=== PATIENT | female | born 1945 | race Caucasian/White ===

== ENCOUNTER 2019-03-09 07:13 | Inpatient (IN) | payer MEDICARE, MEDICAID, SELFPAY ==
[2019-03-10] VITALS (28 sets, daily range): BP systolic 101–181; BP diastolic 42–98; PULSE 75–106; RESP 11–22; TEMP 36.2–36.8; O2SAT 92–98
[2019-03-10] MEDS: propofol 1,000 MG/100 ML INJ 18.1 MG IV (03:00)
[2019-03-10] MEDS: ipratropium-albuterol 3 mL Neb INHALATION ×6 (03:21→23:44)
--- NOTE | 2019-03-10 04:00 | XR_ITS ---
WS: [id number] CHEST XRAY TECHNIQUE: Portable chest. CLINICAL INFORMATION: resp failure COMPARISON: March 09, 2019 FINDINGS: Tubes/Lines: Endotracheal tube with tip above the elza. Enteric tube with tip below the diaphragm. Stable right central venous catheter. Heart: Normal cardiac silhouette. Sternotomy. Lungs: Chronic emphysematous changes. No acute pulmonary infiltrates. Bones: Normal visualized bony structures. XR/XR chest 1V portable [id number] IMPRESSION: 1. Endotracheal tube with tip above the elza. Enteric tube with tip below th e diaphragm. 2. No acute pulmonary infiltrates.
--- NOTE | 2019-03-10 04:40 | PC.NURSE ---
Large amount of bloody drainage noted from Right SC central line. Dressing changed using sterile technique, surgiseal placed over insertion site. Will continue to monitor and notify MD if continued bleeding noted.
[2019-03-10 05:15] LABS: Add RBC Morph No
[2019-03-10 05:20] LABS: Basophils % 0.1 %; Hematocrit 36.1 % (37.0-47.0); Hemoglobin 11.3 g/dL (11.5-15.3); Lymphocytes # 1.1 10^3/uL (0.8-4.8); Lymphocytes % 8.2 %; Mean Corpuscular HGB Conc 31.3 g/dL (30.0-36.0); Mean Corpuscular Hemoglobin 26.3 pg (28.0-34.0); Mean Corpuscular Volume 84.1 fL (81-99); Mean Platelet Volume 10.9 fL (7.4-10.4); Monocytes # 0.6 10^3/uL (0.2-0.9); Monocytes % 4.4 %; Neutrophils # 11.2 10^3/uL (1.8-7.7); Neutrophils % 86.8 %; Nucleated Red Blood Cells % 0 %; Platelet Count 177 10^3/cmm (130-400); Red Blood Count 4.29 10^6/uL (4.1-5.3); Red Cell Distribution Width 13.7 % (12.1-15.1); White Blood Count 12.9 10^3/uL (4.0-10.0)
[2019-03-10 05:39] LABS: Anion Gap 16.1 (5-19); Blood Urea Nitrogen 24 mg/dL (8-23); Calcium 8.1 mg/Dl (8.8-10.2); Carbon Dioxide 25 mmol/L (22-29); Chloride 102 mmol/L (98-107); Glucose 148 mg/dL (74-106); Potassium 3.1 mmol/L (3.5-5.1); Sodium 140 mmol/L (136-145)
[2019-03-10 05:46] LABS: ABG PCO2 33.5 mmHg (35-45); ABG PH Result 7.51 (7.35-7.45); Arterial Blood Gas Hematocrit 36.7 % (37-47); Base Excess ABG 3.6 mmol/L (-2.0-2.0); Blood Gas Allen Test Pos; Blood Gas Sample Site Brachial, right; Blood Gas Sample Type Arterial; HCO3 ABG 26.5 mmol/L (22-26); PO2 ABG 89.5 mmHg (80.0-100.0)
[2019-03-10 05:48] LABS: Blood Gas Operator Identificat VOSSA
[2019-03-10 05:49] LABS: Blood Gas Drawn By VOSSA; Blood Gas Tidal Volume 450; Blood Gas Vent Mode CMV; Oxygen Device VENT
[2019-03-10] MEDS: budesonide 0.5 mg/2 mL Neb INHALATION ×2 (07:05→20:10)
[2019-03-10] MEDS: levofloxacin-dextrose 5% 750 mg-150 mL Premix 150 MG IV (07:38)
[2019-03-10] MEDS: propofol 1,000 MG/100 ML INJ 14.5 MG IV (07:41)
[2019-03-10] MEDS: sodium chloride 0.9 % (flush) syringe 10 mL 2 ML IV ×2 (07:45→21:06)
--- NOTE | 2019-03-10 08:17 | P.PN_ITS ---
Subjective Subjective: Interval history: Sarika is sedated on the ventilator. She will come alert and follow commands. Vitals/I&O/Wt Last Vital Signs Temp 97.8 F 03/10/19 04:00 Pulse 76 03/10/19 07:18 Resp 15 03/10/19 07:21 BP 124/56 03/10/19 06:00 Pulse Ox 94 03/10/19 07:06 03/09/19 03/10/19 03/10/19 22:59 06:59 14:59 Intake Total 183.262 / 183.262 62.108 / 62.108 Balance 183.262 / 183.262 62.108 / 62.108 Weight last 48 hrs Weight 120.837 kg Physical Exam Narrative: EXAM NARRATIVE: General exam is no apparent distress Cardiovascular regular rate and rhythm without murmur Lungs clear. No wheezing is heard today. Abdomen is soft with positive bowel sounds Extremities no cyanosis clubbing. Trace edema is present. Data Labs: Other Labs: All Labs last 24 hrs except CBC/BMP 03/09/19 03/09/19 03/09/19 08:03 09:22 13:48 RBC MCV MCH MCHC RDW MPV Neut % (Auto) Lymph % (Auto) [place] % (Auto) Eos % (Auto) Baso % (Auto) Neut # (Auto) Lymph # (Auto) [place] # (Auto) Eos # (Auto) Baso # (Auto) Nucleated RBC % (a uto) Nucleated RBCs # Specimen Type Arterial Sample Site Radial, right ABG pH 7.38 ABG pCO2 40.8 ABG pO2 79.4 L ABG HCO3 24.1 ABG Base Excess -1.0 Cricket Test Pos Hematocrit 40.7 Respiration Rate 16.0 O2 Delivery Device VENT Vent Mode FiO2 55.0 Tidal Volume 0.45 PEEP 8.0 Specimen Drawn By Hand Printed Circuit Board Assembler ID cak Calcium Troponin T Baselin e 270.40 H* TSH 0.80 03/10/19 03/10/19 03/10/19 04:25 04:25 05:35 RBC 4.29 MCV 84.1 MCH 26.3 L MCHC 31.3 RDW 13.7 MPV 10.9 H Neut % (Auto) 86.8 Lymph % (Auto) 8.2 [place] % (Auto) 4.4 Eos % (Auto) 0.0 Baso % (Auto) 0.1 Neut # (Auto) 11.2 H Lymph # (Auto) 1.1 [place] # (Auto) 0.6 Eos # (Auto) 0.0 Baso # (Auto) 0.0 Nucleated RBC % (a uto) 0 Nucleated RBCs # 0.0 Specimen Type Arterial Sample Site Brachial, right ABG pH 7.51 H ABG pCO2 33.5 L ABG pO2 89.5 ABG HCO3 26.5 H ABG Base Excess 3.6 H Cricket Test Pos Hematocrit 36.7 L Respiration Rate 14.0 O2 Delivery Device Vent Vent Mode Cmv FiO2 0.0 Tidal Volume 450 PEEP 8.0 Specimen Drawn By Vossa Hand Printed Circuit Board Assembler ID Vossa Calcium 8.1 L Troponin T Baselin e TSH A&P Assessment and plan (1) Respiratory failure: She appears to have improved significantly. Planning extubation today. Status: Acute Code(s): J96.90 - Respiratory failure, unspecified, unspecified whether with hypoxia or hypercapnia (2) Acute systolic heart failure: Compensation improved Status: Acute Code(s): I50.21 - Acute systolic (congestive) heart failure (3) COPD with acute exacerbation: Improving Status: Acute Code(s): J44.1 - Chronic obstructive pulmonary disease with (acute) exacerbation (4) Obesity: Status: Acute Code(s): E66.9 - Obesity, unspecified (5) Coronary artery disease: With elevated troponin, reduced ejection fraction cardiology is following and considering angiogram Status: Acute Code(s): I25.10 - Atherosclerotic heart disease of [place] coronary artery without angina pectoris (6) Hypertension: Stable Status: Acute Code(s): I10 - Essential (primary) hypertension (7) GERD (gastroesophageal reflux disease): Status: Acute Code(s): K21.9 - Gastro-esophageal reflux disease without esophagitis (8) Hypokalemia: Supplemented today Status: Acute Code(s): E87.6 - Hypokalemia Attestations Medical Necessity Statement*: Needs continued hospitalization for diuresis secondary to acute congestive heart failure Coding Level of Care Code Acute Shift Superintendent [employer] for [facility] Fwd Diagnoses Respiratory failure J96.90 Acute systolic heart failure I50.21 COPD with acute exacerbation J44.1 Obesity E66.9 Coronary artery disease I25.10 Hypertension I10 GERD (gastroesophageal reflux disease) K21.9 Hypokalemia E87.6
--- NOTE | 2019-03-10 08:21 | PM.PN ---
Subjective Subjective: Interval history: Overall patient feels better No acute events overnight Vitals/I&O/Wt Last Vital Signs Temp 97.8 F 03/10/19 04:00 Pulse 76 03/10/19 07:18 Resp 15 03/10/19 07:21 BP 124/56 03/10/19 06:00 Pulse Ox 94 03/10/19 07:06 03/09/19 03/10/19 03/10/19 22:59 06:59 14:59 Intake Total 183.262 / 183.262 62.108 / 62.108 Balance 183.262 / 183.262 62.108 / 62.108 Weight last 48 hrs Weight 266 lb 6.4 oz Physical Exam Const: COMMON NORMALS: oriented x3 and alert EXAM LIMITATIONS: no altered mental status HENMT: COMMON NORMALS: normocephalic HEAD & SCALP: normocephalic Resp: COMMON NORMALS: normal respiratory effort and clear to auscultation bilaterally AUSCULTATION: clear to auscultation bilaterally GI: COMMON NORMALS: soft to palpation; negative for no masses PALPATION: Yes soft and Yes other (Patient does have some drainage from the upper part of the incision, skin stef were removed and there was a slimy discharge get the fascia is intact packing was done by me bedside after removal additional skin staple) Neuro: COMMON NORMALS: oriented x3 SENSORIUM/ORIENTATION: Yes alert Psych: COMMON NORMALS: cooperative Data Labs: Other Labs: All Labs last 24 hrs except CBC/BMP 03/09/19 03/09/19 03/09/19 08:03 09:22 13:48 RBC MCV MCH MCHC RDW MPV Neut % (Auto) Lymph % (Auto) [place] % (Auto) Eos % (Auto) Baso % (Auto) Neut # (Auto) Lymph # (Auto) [place] # (Auto) Eos # (Auto) Baso # (Auto) Nucleated RBC % (a uto) Nucleated RBCs # Specimen Type Arterial Sample Site Radial, right ABG pH 7.38 ABG pCO2 40.8 ABG pO2 79.4 L ABG HCO3 24.1 ABG Base Excess -1.0 Cricket Test Pos Hematocrit 40.7 Respiration Rate 16.0 O2 Delivery Device VENT Vent Mode FiO2 55.0 Tidal Volume 0.45 PEEP 8.0 Specimen Drawn By Undercutter ID cak Calcium Troponin T Baselin e 270.40 H* TSH 0.80 03/10/19 03/10/19 03/10/19 04:25 04:25 05:35 RBC 4.29 MCV 84.1 MCH 26.3 L MCHC 31.3 RDW 13.7 MPV 10.9 H Neut % (Auto) 86.8 Lymph % (Auto) 8.2 [place] % (Auto) 4.4 Eos % (Auto) 0.0 Baso % (Auto) 0.1 Neut # (Auto) 11.2 H Lymph # (Auto) 1.1 [place] # (Auto) 0.6 Eos # (Auto) 0.0 Baso # (Auto) 0.0 Nucleated RBC % (a uto) 0 Nucleated RBCs # 0.0 Specimen Type Arterial Sample Site Brachial, right ABG pH 7.51 H ABG pCO2 33.5 L ABG pO2 89.5 ABG HCO3 26.5 H ABG Base Excess 3.6 H Cricket Test Pos Hematocrit 36.7 L Respiration Rate 14.0 O2 Delivery Device Vent Vent Mode Cmv FiO2 0.0 Tidal Volume 450 PEEP 8.0 Specimen Drawn By Vossa Undercutter ID Vossa Calcium 8.1 L Troponin T Juanjose e TSH Coding Level of Care Code Acute In Home Nanny for [facility]
--- NOTE | 2019-03-10 09:29 | PC.NURSE ---
iv intact measured on other intake on intake and output
[2019-03-10] MEDS: aspirin 81 mg EC Tablet PO (09:45)
[2019-03-10] MEDS: losartan 50 mg Tablet 25 MG PO (09:46)
[2019-03-10] MEDS: famotidine 20 mg Tablet PO ×2 (09:46→18:07)
[2019-03-10] MEDS: metoprolol tartrate 25 mg Tablet 12.5 MG PO ×2 (09:46→18:07)
[2019-03-10] MEDS: FUROsemide 10 mg/mL SDV 4mL 40 MG IVP ×2 (09:47→21:05)
[2019-03-10] MEDS: potassium chloride premix 40 MEQ/100 ML PREMIX 25 MEQ IV (09:50)
--- NOTE | 2019-03-10 10:26 | PC.RESP ---
PT EXTUBATED . 0 RESPIRATROY DISTRESS NOTED. HR112 RR 20 SAT 95% ON 3LPM NC
--- NOTE | 2019-03-10 11:32 | PM.CONSULT ---
Providers/Reason For Consult Consulting Physican/Specialty*: Dr. Ruiz, cardiology Reason for Consult*: Elevated troponin and decreased LV function. Attending Physician: Charles Saba MD Primary Care Provider: Karla Mendez History of Present Illness History of Present Illness Sarika Banegas is a 73 year old female who was transferred from [facility] ER yesterday secondary to respiratory failure. It seems like she presented to the ER with significant hypoxia and hypercarbia and ended up being intubated. Chest x-ray showed pulmonary edema and Lasix was started. CT angiogram at outside hospital showed no pulmonary embolism and probable congestive heart failure. Initial troponin T fifth generation on arrival here was 270 which increased to 320 and then the third set on at 6-hour marco was 326. She underwent echocardiogram and was found to have left ventricular ejection fraction in the 30% range with severe hypokinesis of mid to apical segments with relative sparing of basal segments more so in lateral wall. I have been asked to assist in further management. On reviewing her records seems like she follows up with Dr. Marquez and last saw him on 09 December 2018. She has known history of coronary artery disease with history of CABG x2 by Dr. Stovall at [facility] in [place] in March 2009 for unstable angina when she underwent ROPER to LAD and saphenous vein graft from ROPER to obtuse marginal artery. She also has carotid artery disease, 60% left subclavian stenosis, COPD, dyslipidemia, gastroesophageal reflux disease and degenerative joint disease. At the time of examination, she has been extubated. States that for the past 2 weeks, she has been having worsening lower extremity swelling, worsening orthopnea, cough productive of whitish sputum and worsening dyspnea on exertion. She denies having any episodes of chest discomfort. Symptoms progressively got got worse over the past 2 weeks and last night she was unable to breathe at all so she called 911 and ended up being intubated at outside ER. Review of Systems Const: Denies: fever, chills, change in appetite, fatigue or malaise ENMT: Denies: throat pain, swelling of lips/tongue, oral sores/lesions or post nasal drip Card: Reports: edema, swelling of feet/ankles and shortness of breath on exertion; Denies: chest pain, palpitations, irregular heart rhythm, lightheadedness or syncope Resp: Reports: shortness of breath, productive cough and chest congestion; Denies: wheezing or coughing up blood GI: Denies: abdominal pain, nausea, vomiting, diarrhea, constipation or blood in stool : Denies: difficulty urinating, painful urination or decreased urine ouput Skin/Breast: Denies: rash or new lesion Neuro: Denies: weakness in extremities Meds/Allergies Home Medications and Allergies Home Medications Medication Instructions Recorded Confirmed Type albuterol sulfate 90 mcg/actuation 2 puff INHALATION Q6H PRN 03/09/19 03/09/19 History aerosol inhaler aspirin 325 mg tablet 325 mg PO ONCE tab 03/09/19 03/09/19 History citalopram 10 mg tablet 10 mg PO ONCE 03/09/19 03/09/19 History fluticasone propionate 50 1 spray INTRANASAL BID 03/09/19 03/09/19 History mcg/actuation nasal spray,suspension fluticasone propionate 50 1 spray INTRANASAL BID PRN 03/09/19 03/09/19 History mcg/actuation nasal spray,suspension furosemide 40 mg tablet 40 mg PO BID 03/09/19 03/09/19 History levothyroxine 50 mcg tablet 50 mcg PO ONCE 03/09/19 03/09/19 History losartan 25 mg tablet 25 mg PO BID 03/09/19 03/09/19 History metoprolol tartrate 25 mg tablet 12.5 mg PO BID 03/09/19 03/09/19 History mirabegron 50 mg tablet,extended 50 mg PO Q24H 03/09/19 03/09/19 History release 24 hr naproxen 375 mg tablet,delayed 375 mg PO BID 03/09/19 03/09/19 History release nitroglycerin 0.4 mg sublingual 0.4 mg SUBLINGUAL Q5M PRN 03/09/19 03/09/19 History tablet pantoprazole 40 mg tablet,delayed 40 mg PO ONCE 03/09/19 03/09/19 History release potassium chloride 10 mEq 10 meq PO BID cap 03/09/19 03/09/19 History capsule,extended release rosuvastatin 5 mg tablet 5 mg PO ONCE 03/09/19 03/09/19 History tizanidine 2 mg capsule 2 mg PO TID PRN 03/09/19 03/09/19 History tramadol 50 mg tablet 50 mg PO BID PRN 03/09/19 03/09/19 History trazodone 100 mg tablet 100 mg PO ONCE 03/09/19 03/09/19 History umeclidinium 62.5 mcg-vilanterol 1 inh INHALATION Q24H 03/09/19 03/09/19 History 25 mcg/actuation powdr for inhalation Allergies Allergy/AdvReac Type Severity Reaction Status Date / Time alprazolam [From Xanax] Allergy makes pt Verified 03/09/19 12:21 mean lisinopril Allergy cough Verified 03/09/19 12:18 morphine Allergy hyperactive Verified 03/09/19 12:19 penicillin G Allergy anaphylaxis Verified 03/09/19 12:19 pravastatin Allergy unknown Verified 03/09/19 12:22 simvastatin Allergy unknown Verified 03/09/19 12:22 sulfacetamide Allergy hives Verified 03/09/19 12:20 tiotropium Allergy cough Verified 03/09/19 12:20 [From Spiriva with HandiHaler] Current Medications Current Medications Generic Name Dose Route Start Last Admin Trade Name Freq PRN Reason Stop Dose Admin Albuterol/Ipratropium 3 ml 03/10/19 03:00 03/10/19 11:07 Duoneb INHALATION 3 ml Q4H.RESPIRATORY LIDIA Administration Aspirin 81 mg 03/10/19 09:00 03/10/19 09:45 Aspirin Ec PO 81 mg DAILY LIDIA Administration Budesonide 0.5 mg 03/10/19 08:00 03/10/19 07:05 Pulmicort INHALATION 0.5 mg BID.RESPIRATORY LIDIA Administration Famotidine 20 mg 03/10/19 09:00 03/10/19 09:46 Pepcid Tab PO 20 mg BID LIDIA Administration Furosemide 40 mg 03/10/19 10:00 03/10/19 09:47 Lasix IVP 40 mg Q12H LIDIA Administration Levofloxacin/Dextrose 750 mg in 150 mls @ 150 mls/hr 03/10/19 08:00 03/10/19 07:38 Levaquin-D5w IV 150 mls/hr Q24H LIDIA Administration Propofol 1,000 mg in 100 mls @ 0 mls/hr 03/10/19 02:45 03/10/19 08:41 Diprivan IV 0 mcg/kg/min .Q0M LIDIA 0 mls/hr Titration Protocol Per Protocol Potassium Chloride 40 meq in 100 mls @ 25 mls/hr 03/10/19 08:04 03/10/19 09:50 K-Matthew IV 03/10/19 12:03 25 mls/hr ONCE ONE Administration Losartan Potassium 25 mg 03/10/19 09:00 03/10/19 09:46 Cozaar PO 25 mg DAILY LIDIA Administration Methylprednisolone Sodium Succinate 60 mg 03/10/19 08:00 03/10/19 07:40 Solu-Medrol IVP 60 mg Q12H LIDIA Administration Metoprolol Tartrate 12.5 mg 03/10/19 09:00 03/10/19 09:46 Lopressor PO 12.5 mg BID LIDIA Administration Sodium Chloride 2 ml 03/10/19 06:00 03/10/19 07:45 Sodium Chloride 0.9 % (Flush) IV 2 ml PIID LIDIA Administration PFSH Acute PFSH: Statuses (acute, chronic, etc) shown below reflect problem list status as previously entered and may not be historically accurate Medical History Coronary artery disease (Acute) GERD (gastroesophageal reflux disease) (Acute) Hyperlipidemia (Acute) Hypertension (Acute) Hypothyroidism (Acute) Obesity (Acute) Family History Mother CAD (coronary artery disease) Daughter CAD (coronary artery disease) Hypertension Social History Smoking and tobacco status: former smoker Alcohol intake: never Vitals/I&O/Wt Last Vital Signs Temp 97.8 F 03/10/19 04:00 Pulse 96 03/10/19 11:15 Resp 20 H 03/10/19 11:11 BP 124/56 03/10/19 06:00 Pulse Ox 92 03/10/19 11:11 03/09/19 03/10/19 03/10/19 22:59 06:59 14:59 Intake Total 183.262 / 183.262 76.608 / 76.608 Balance 183.262 / 183.262 76.608 / 76.608 Weight last 48 hrs Weight 256 lb 3 oz Weight 266 lb 6.4 oz Physical Exam Const: EXAM LIMITATIONS: no altered mental status GENERAL APPEARANCE: cooperative NUTRITIONAL APPEARANCE: obese ORIENTATION/CONSCIOUSNESS: Yes awake, Yes oriented to person, Yes oriented to place and Yes oriented to time HENMT: COMMON NORMALS: normocephalic, head/scalp atraumatic and hearing grossly normal bilaterally HEAD & SCALP: normocephalic and atraumatic Chest: COMMONS NORMALS: inspection of chest normal CHEST: Yes tenderness Chest images (female): 1. Right sided central line, dressing saturated with blood Resp: EFFORT & INSPECTION: No able to speak in complete sentences, Yes symmetric chest movement, Yes respiratory distress (mild), No actively coughing and No uses accessory muscles AUSCULTATION: diminished lung sounds (bilateral bases) Cardio: COMMON NORMALS: regular rhythm, S1 normal heart sound, S2 normal heart sound, no gallops, no clicks, no murmurs and peripheral pulses 2+ throughout JUGULAR VENOUS DISTENTION: no JVD RHYTHM: regular rhythm HEART SOUNDS: S1 normal and S2 normal PERIPHERAL PULSES: pulses 2+ throughout GI: COMMON NORMALS: soft to palpation PALPATION: Yes soft RECTAL EXAM: deferred Extremity: GENERAL: Yes edema (2+ edema bilateral lower extremeties) Neuro: SENSORIUM/ORIENTATION: Yes oriented to person, Yes oriented to place and Yes oriented to time SPEECH: speech normal Skin: COMMON NORMALS: no rashes or lesions noted GENERAL SKIN EXAM: no rashes or lesions noted Data Labs: Other Labs: All Labs last 24 hrs except CBC/BMP 03/09/19 03/09/19 03/09/19 08:03 09:22 13:48 RBC MCV MCH MCHC RDW MPV Neut % (Auto) Lymph % (Auto) [place] % (Auto) Eos % (Auto) Baso % (Auto) Neut # (Auto) Lymph # (Auto) [place] # (Auto) Eos # (Auto) Baso # (Auto) Nucleated RBC % (a uto) Nucleated RBCs # Specimen Type Arterial Sample Site Radial, right ABG pH 7.38 ABG pCO2 40.8 ABG pO2 79.4 L ABG HCO3 24.1 ABG Base Excess -1.0 Cricket Test Pos Hematocrit 40.7 Respiration Rate 16.0 O2 Delivery Device VENT Vent Mode FiO2 55.0 Tidal Volume 0.45 PEEP 8.0 Specimen Drawn By Industrial Real Estate Agent ID cak Calcium Troponin T Baselin e 270.40 H* TSH 0.80 03/10/19 03/10/19 03/10/19 04:25 04:25 05:35 RBC 4.29 MCV 84.1 MCH 26.3 L MCHC 31.3 RDW 13.7 MPV 10.9 H Neut % (Auto) 86.8 Lymph % (Auto) 8.2 [place] % (Auto) 4.4 Eos % (Auto) 0.0 Baso % (Auto) 0.1 Neut # (Auto) 11.2 H Lymph # (Auto) 1.1 [place] # (Auto) 0.6 Eos # (Auto) 0.0 Baso # (Auto) 0.0 Nucleated RBC % (a uto) 0 Nucleated RBCs # 0.0 Specimen Type Arterial Sample Site Brachial, right ABG pH 7.51 H ABG pCO2 33.5 L ABG pO2 89.5 ABG HCO3 26.5 H ABG Base Excess 3.6 H Cricket Test Pos Hematocrit 36.7 L Respiration Rate 14.0 O2 Delivery Device Vent Vent Mode Cmv FiO2 0.0 Tidal Volume 450 PEEP 8.0 Specimen Drawn By Vossa Industrial Real Estate Agent ID Vossa Calcium 8.1 L Troponin T Baselin e TSH Other Data: Attestation for Other Data: I personally reviewed and interpreted the following: Other data: Echocardiogram: CONCLUSIONS 1. This is a technically very difficult and limited study. 2. Moderately to severely decreased left ventricular systolic function. Left ventricular ejection fraction is estimated at 30 %. Severe hypokinesis of mid to apical anteroseptal, inferoseptal, inferolateral, anterolateral and apical leos. 3. Thickened and calcified aortic valve. Mild aortic valve stenosis, mean gradient 9.2 mmHg, ANDRIY 1.9 cm squared. Mild aortic valve regurgitation. 4. Moderately increased left atrial size. 5. Pulmonary artery pressure estimated at 36 mmHg. 6. When compared to previous echocardiogram dated 03/25/2018, left ventricular systolic function has decreased. 7. These findings may represent Tak[place]ubo cardiomyopathy if coronary artery disease is ruled out. EKG showed sinus rhythm with normal axis, possible septal SC of indeterminate age and nonspecific T wave inversion in lead III and aVF. Carotid duplex 01 January 2019: CONCLUSIONS Moderate to heavy heterogenous plaques at the bifurcations and proximal internal carotid arteries bilaterally with velocity elevation, consistent with 50-79% stenosis. Elevated velocity in the right vertebral artery, suggestive of hemodynamically significant stenosis Elevated velocity in the left external carotid artery, suggestive of hemodynamically significant stenosis Retrograde flow in the left vertebral artery, suggestive of high-grade proximal subclavian artery stenosis Compared to the study from 03/26/2018, there is significant progression of disease bilaterally Consider CTA, to better evaluate the aortic arch vessels Neck CT angiogram 09 February 2019: OPINION: 1. Atherosclerotic plaque stenosis of the origin left subclavian artery at 79%. Additional proximal left subclavian artery stenosis at 55%. 2. 80% stenosis of the right carotid bifurcation and origin cervical right internal carotid artery by NASCET criteria. 3. 26% stenosis of the origin left cervical internal carotid artery. 4. Prior median sternotomy and coronary bypass grafting. 5. Multilevel spondylosis of the cervical spine. 6. Centrilobular emphysematous changes. A&P Assessment and plan (1) Respiratory failure: Acute respiratory failure secondary to pulmonary edema. -Has been extubated. Status: Acute Code(s): J96.90 - Respiratory failure, unspecified, unspecified whether with hypoxia or hypercapnia (2) NSTEMI (non-ST elevated myocardial infarction): Type 1 versus type II. -Likely type II Non ST elevation ACS setting of pulmonary edema hypoxic, respiratory failure and decompensated congestive heart failure. -Continue aspirin, statin and low-dose metoprolol. -She was started on full dose Lovenox yesterday but has significant oozing from her central line. May need to stop that. Status: Acute Code(s): I21.4 - Non-ST elevation (NSTEMI) myocardial infarction (3) Acute systolic heart failure: Drop in left ventricular ejection fraction to 30% with regional wall motion abnormality (TDS). -History of coronary artery disease with history of CABG x2 in 2009 stress test in 2012 without any significant ischemia. -She would benefit from coronary angiogram. Was discussed with the patient and she is agreeable with the plan. -Depending on her respiratory status, plan for coronary angiogram tomorrow or day after. -Continue Lasix 40 mg IV twice a day. Status: Acute Code(s): I50.21 - Acute systolic (congestive) heart failure (4) Obesity: Status: Acute Code(s): E66.9 - Obesity, unspecified (5) Coronary artery disease: s/p CABG x 2 Status: Acute Code(s): I25.10 - Atherosclerotic heart disease of [place] coronary artery without angina pectoris (6) Hypertension: Status: Acute Code(s): I10 - Essential (primary) hypertension (7) GERD (gastroesophageal reflux disease): Status: Acute Code(s): K21.9 - Gastro-esophageal reflux disease without esophagitis (8) COPD with acute exacerbation: Status: Acute Code(s): J44.1 - Chronic obstructive pulmonary disease with (acute) exacerbation Coding Level of Care Code Acute Clinical Rn for [facility] Fwd Diagnoses Respiratory failure J96.90 NSTEMI (non-ST elevated myocardial infarction) I21.4 Acute systolic heart failure I50.21 Obesity E66.9 Coronary artery disease I25.10 Hypertension I10 GERD (gastroesophageal reflux disease) K21.9 COPD with acute exacerbation J44.1
--- NOTE | 2019-03-10 14:02 | PC.CHAP ---
Pastoral Care Encounter/Spiritual Assessment Type of Contact [] Declined filling layer up visit [] Patient/Family/Request visit [] Outpatient visit [] Follow-up visit [] Physician referral [] Code/Alert [x] Routine visit [] Staff referral [] Actively dying [] Patient sleeping [] Family support [] [] Out of room [] Palliative care [] [] Receiving care in room [] Pre-surgical visit [] Trauma [] Long length of stay [x ICU visit [] Other: Relational/Emotional Strength [x] Patient feels connected with others/family/visitors/staff [] Distress [] Loneliness/isolation [] Abandonment Spirituality of Patient [x] Person of Sylwia [] Attends Gnosticist of their Sylwia [x] Believes in Prayer [] Reads Bible or Religion materials [] There are Spiritual issues to be addressed Management Developer Interventions [x] Prayer [x] Active listening [x] Non-anxious presence [x] Spiritual/emotional support [] Crisis/trauma care [] Spiritual counseling [] Bereavement support [] Provided bereavement packet [] Provided Bible/devotional materials [] Provided toy/stuffed animal, coloring book to patient or family member [x] Completed spiritual assessment [] Provided Communion [] Anointing/[place] [] Salvation [] Other: Impact on Illness or Injury [] Angry [] Fearful [x] Anxious [] Often cries [] Exhaustion [] Unable to work [] Unable to attend episcopalian [] Unable to walk/stand [x] Unable to read [x] Unable to drive [x] Unable to eat/drink [] Unable to sleep [] Unable to be with family [] Other: Summary On nResprorator Respoonsive Head nwt i said & Isteneed Time spent with patient 10 mins
--- NOTE | 2019-03-10 19:10 | PC.NURSE ---
1800-Dr Saba notified that pt's BP has begun to increase. Pt tolerating well. Pt stated she currently takes a higher dose of Metoprolol than what is ordered. Home meds requested from pharmacy. Those known entered in the computer. Orders received.
[2019-03-10] MEDS: hyDRALAzine 20 mg/mL INJ 1 mL 10 MG IVP (20:12)
[2019-03-10] MEDS: atorvastatin 40 mg Tablet 20 MG PO (20:50)
[2019-03-10] MEDS: trazodone 50 mg Tablet PO ×2 (21:05)
--- NOTE | 2019-03-10 23:45 | PC.NURSE ---
Call to Dr Rios; Patients blood pressure has been high since I came onto shift, the highest reading being 201/83. At that time I gave hydralazine 10mg IVP as previously ordered by the day shift Dr; 2 hours after giving hydralazine, the patients BP did not go down much, the lowest of 176/92. Dr Rios notified and he ordered Nitro paste 1 to be applied transdermally. Will continue to monitor patients status and BP.
[2019-03-11] VITALS (28 sets, daily range): BP systolic 110–180; BP diastolic 66–120; PULSE 98–135; RESP 15–20; TEMP 36.8–37.1; O2SAT 3–99; BMI 43.1
[2019-03-11] MEDS: nitroglycerin 1 gm/inch oint Pkt 1 INCH TOPICAL (00:37)
[2019-03-11] MEDS: ipratropium-albuterol 3 mL Neb INHALATION ×6 (03:30→22:52)
[2019-03-11] MEDS: hyDRALAzine 20 mg/mL INJ 1 mL 10 MG IVP ×2 (03:48→05:12)
--- NOTE | 2019-03-11 04:01 | PC.NURSE ---
Patient stated that shortly after applying the nitro patch she started having increased chest pain. Call to Dr Rios; patients blood pressure 198/67; order given to give hydralazine 10mg IVP up to 3 doses every 15 min to have a systolic equal to or less than 160 and to remove and discontinue the nitro patch.
[2019-03-11 04:13] LABS: Basophils % 0.1 %; Hematocrit 38.1 % (37.0-47.0); Hemoglobin 11.8 g/dL (11.5-15.3); Lymphocytes % 7.9 %; Mean Corpuscular Hemoglobin 26.7 pg (28.0-34.0); Mean Corpuscular Volume 86.2 fL (81-99); Mean Platelet Volume 10.7 fL (7.4-10.4); Monocytes # 0.6 10^3/uL (0.2-0.9); Monocytes % 5.3 %; Neutrophils # 10.3 10^3/uL (1.8-7.7); Neutrophils % 85.9 %; Nucleated Red Blood Cells % 0 %; Platelet Count 170 10^3/cmm (130-400); Red Blood Count 4.42 10^6/uL (4.1-5.3); Red Cell Distribution Width 13.6 % (12.1-15.1)
[2019-03-11 04:23] LABS: Add RBC Morph No
[2019-03-11 04:34] LABS: Anion Gap 16.8 (5-19); Blood Urea Nitrogen 20 mg/dL (8-23); Calcium 8.6 mg/Dl (8.8-10.2); Carbon Dioxide 26 mmol/L (22-29); Chloride 100 mmol/L (98-107); Glucose 141 mg/dL (74-106); Magnesium 2.1 mg/dL (1.7-2.3); Sodium 140 mmol/L (136-145)
[2019-03-11 04:40] LABS: Potassium 2.8 mmol/L (3.5-5.1)
[2019-03-11] MEDS: lidocaine 1% INJ 20 mL 5 ML IV ×2 (05:43→09:34)
[2019-03-11] MEDS: potassium chloride premix 40 MEQ/100 ML PREMIX 25 MEQ IV ×2 (05:43→09:34)
[2019-03-11] MEDS: sodium chloride 0.9 % (flush) syringe 10 mL 2 ML IV ×3 (06:16→21:35)
[2019-03-11] MEDS: acetaminophen 325 mg Tablet 650 MG PO ×3 (06:33→22:16)
[2019-03-11] MEDS: budesonide 0.5 mg/2 mL Neb INHALATION ×2 (07:35→19:50)
--- NOTE | 2019-03-11 08:32 | XR_ITS ---
WS: [id number] CHEST XRAY TECHNIQUE: Portable chest. CLINICAL INFORMATION: dyspnea COMPARISON: March 10, 2019 FINDINGS: Stable right central venous catheter tip in the SVC. Heart: Normal cardiac silhouette. Sternotomy. Lungs: Lungs are clear. No consolidation or pleural effusion. No acute pulmonary infiltrates. Bones: Normal visualized bony structures. XR/XR chest 1V portable [id number] IMPRESSION: 1. Stable right central venous catheter with tip in the mid to distal SVC. 2. No acute pulmonary infiltrates. 3. Interval removal of ETT and enteric tube.
--- NOTE | 2019-03-11 08:39 | PM.PN ---
Subjective Subjective: Interval history: Feels short of breath. No better than yesterday. No chest discomfort. Medications: Reviewed: Yes Vitals/I&O/Wt Last Vital Signs Temp 98.3 F 03/11/19 06:00 Pulse 124 H 03/11/19 07:41 Resp 18 03/11/19 07:36 BP 110/69 03/11/19 06:00 Pulse Ox 95 03/11/19 07:36 03/10/19 03/11/19 03/11/19 22:59 06:59 14:59 Intake Total 320 / 396.608 Output Total 1600 / 1600 2300 / 3900 Balance -1280 / -1203.392 -2300 / -3503.392 Weight last 48 hrs Weight 116.205 kg Weight 120.837 kg Physical Exam Narrative: EXAM NARRATIVE: General exam is mild respiratory distress Cardiovascular tachycardic, regular Lungs diminished breath sounds bilaterally. Relatively clear Abdomen is soft obese nontender Extremities 1+ edema bilaterally A&P Assessment and plan (1) Respiratory failure: Extubated yesterday. Still mildly to moderately short of breath. Tachycardic currently. Differential diagnosis includes withdrawal. She does take a fairly high dose of tramadol every 4-6 hours. Must also consider PE. Will have CTA reread. Will repeat EKG. Increase metoprolol. Status: Acute Code(s): J96.90 - Respiratory failure, unspecified, unspecified whether with hypoxia or hypercapnia (2) Acute systolic heart failure: Less edema. Still short of breath. Status: Acute Code(s): I50.21 - Acute systolic (congestive) heart failure (3) COPD with acute exacerbation: Improved, less wheezing. Will discontinue Solu-Medrol, changed to prednisone. Continue pulmonary toilet. Status: Acute Code(s): J44.1 - Chronic obstructive pulmonary disease with (acute) exacerbation (4) Obesity: Status: Acute Code(s): E66.9 - Obesity, unspecified (5) Coronary artery disease: With elevated troponin, reduced ejection fraction cardiology is following and considering angiogram Status: Acute Code(s): I25.10 - Atherosclerotic heart disease of [place] coronary artery without angina pectoris (6) Hypertension: Higher blood pressures noted overnight. Evaluating currently. Hydralazine was added. Metoprolol will be increased. Status: Acute Code(s): I10 - Essential (primary) hypertension (7) GERD (gastroesophageal reflux disease): Status: Acute Code(s): K21.9 - Gastro-esophageal reflux disease without esophagitis (8) Hypokalemia: Supplemented today Status: Acute Code(s): E87.6 - Hypokalemia Attestations Medical Necessity Statement*: Needs continued hospitalization for evaluation of elevated troponin. Cardiology considering angiogram. Coding Level of Care Code Acute Die Lay Out Worker for [facility] Fwd Diagnoses Respiratory failure J96.90 Acute systolic heart failure I50.21 COPD with acute exacerbation J44.1 Obesity E66.9 Coronary artery disease I25.10 Hypertension I10 GERD (gastroesophageal reflux disease) K21.9 Hypokalemia E87.6
--- NOTE | 2019-03-11 08:40 | ECG_ITS ---
Measurements Intervals [place] Rate: 119 P: -8 RI: 142 QRS: 31 QRSD: 100 T: 205 QT: 348 QTc: 490 SINUS TACHYCARDIA SEPTAL MYOCARDIAL INFARCTION [40+ ms Q WAVE IN V1/V2], PROBABLY OLD ST DEVIATION AND MODERATE T-WAVE ABNORMALITY, CONSIDER ANTEROLATERAL ISCHEMIA [-0.1+ mV T WAVE IN V3-V6] ST DEVIATION AND MODERATE T-WAVE ABNORMALITY, CONSIDER INFERIOR ISCHEMIA [-0.1+ mV T WAVE IN II/aVF] Compared to ECG 03/09/2019 13:50:24 Myocardial infarct finding now present Possible ischemia now present Sinus rhythm no longer present T-wave abnormality still present Electronically Signed On 03-11-2019 17:13:22 FORMULA TECHNICIAN by Luci Ruiz M.D. [email or web address]
[2019-03-11] MEDS: aspirin 81 mg EC Tablet PO (09:23)
[2019-03-11] MEDS: famotidine 20 mg Tablet PO ×2 (09:23→17:25)
[2019-03-11] MEDS: losartan 50 mg Tablet 25 MG PO (09:23)
[2019-03-11] MEDS: levofloxacin-dextrose 5% 750 mg-150 mL Premix 150 MG IV (09:23)
[2019-03-11] MEDS: predniSONE 20 mg Tablet 40 MG PO (09:24)
[2019-03-11] MEDS: FUROsemide 10 mg/mL SDV 4mL 40 MG IVP ×2 (09:24→21:35)
[2019-03-11] MEDS: metoprolol tartrate 25 mg Tablet PO ×2 (09:24→17:25)
[2019-03-11] MEDS: ondansetron 2 mg/ML SDV 2 mL 4 MG IVP (09:52)
--- NOTE | 2019-03-11 15:21 | PC.CHAP ---
Pastoral Care Encounter/Spiritual Assessment Type of Contact [] Declined motor vehicle clerk visit [] Patient/Family/Request visit [] Outpatient visit [] Follow-up visit [] Physician referral [] Code/Alert [x] Routine visit [] Staff referral [] Actively dying [] Patient sleeping [x] Family support [] [] Out of room [] Palliative care [] [] Receiving care in room [] Pre-surgical visit [] Trauma [] Long length of stay [x] ICU visit [] Other: Relational/Emotional Strength [] Patient feels connected with others/family/visitors/staff [x] Distress [] Loneliness/isolation [] Abandonment Spirituality of Patient [x] Person of Sylwia [] Attends Episcopalian of their Sylwia [x] Believes in Prayer [x] Reads Bible or Scientology materials [] There are Spiritual issues to be addressed Bread Packer Interventions [x] Prayer [x] Active listening [x] Non-anxious presence [x] Spiritual/emotional support [] Crisis/trauma care [x] Spiritual counseling [] Bereavement support [] Provided bereavement packet [] Provided Bible/devotional materials [] Provided toy/stuffed animal, coloring book to patient or family member [] Completed spiritual assessment [] Provided Communion [] Anointing/[place] [] Salvation [] Other: Impact on Illness or Injury [] Angry [x] Fearful [x] Anxious [] Often cries [] Exhaustion [x] Unable to work [] Unable to attend episcopalian [x] Unable to walk/stand [] Unable to read [x] Unable to drive [] Unable to eat/drink [] Unable to sleep [] Unable to be with family [] Other: Summary feels conected able to communicate, not active good response Bread Packer Dr Lamonte Zuniga Time spent with patient 1 mins
--- NOTE | 2019-03-11 16:18 | PC.CHAP ---
Pastoral Care Encounter/Spiritual Assessment Type of Contact [] Declined anchor operator visit [] Patient/Family/Request visit [] Outpatient visit [] Follow-up visit [] Physician referral [] Code/Alert [X] Routine visit [] Staff referral [] Actively dying [] Patient sleeping [X] Family support [] [] Out of room [] Palliative care [] [] Receiving care in room [] Pre-surgical visit [] Trauma [] Long length of stay [] ICU visit [] Other: Relational/Emotional Strength [] Patient feels connected with others/family/visitors/staff [X] Distress [] Loneliness/isolation [] Abandonment Spirituality of Patient [X] Person of Sylwia [] Attends Buddhism of their [place]wia [X] Believes in Prayer [] Reads Bible or Yarsanism materials [] There are Spiritual issues to be addressed Jumbo Operator Interventions [X] Prayer [X] Active listening [X] Non-anxious presence [X] Spiritual/emotional support [] Crisis/trauma care [] Spiritual counseling [] Bereavement support [] Provided bereavement packet [] Provided Bible/devotional materials [] Provided toy/stuffed animal, coloring book to patient or family member [X] Completed spiritual assessment [] Provided Communion [] Anointing/[place] [] Salvation [] Other: Impact on Illness or Injury [] Angry [X] Fearful [X] Anxious [] Often cries [] Exhaustion [X] Unable to work [X] Unable to attend quaker [X] Unable to walk/stand [] Unable to read [X] Unable to drive [X] Unable to eat/drink [] Unable to sleep [] Unable to be with family [] Other: Summary Family member, feels conected, happy and resonsive, Jumbo Operator Dr Lamonte Zuniga Time spent with patient 10 mins
--- NOTE | 2019-03-11 17:20 | PM.PN ---
Subjective Subjective: Interval history: patient is currently extubated. She denies any chest pain. He has the shortness of breath. Denies any palpitation. Has no fever. No other specific complaints. She has a cough bringing up white/yellowish sputum Medications: Reviewed: Yes Vitals/I&O/Wt Last Vital Signs Temp 98.6 F 03/11/19 10:49 Pulse 102 H 03/11/19 14:38 Resp 18 03/11/19 14:36 BP 128/75 03/11/19 14:00 Pulse Ox 94 03/11/19 14:36 03/11/19 03/11/19 03/11/19 06:59 14:59 22:59 Intake Total 246.25 / 246.25 100 / 346.25 Output Total 2300 / 3900 Balance -2300 / -3353.392 246.25 / 246.25 100 / 346.25 Weight last 48 hrs Weight 251 lb 1.6 oz Weight 256 lb 3 oz Weight 266 lb 6.4 oz Physical Exam Const: COMMON NORMALS: oriented x3, alert and well nourished GENERAL APPEARANCE: cooperative, well developed and well hydrated; not in distress HENMT: MOUTH: lip normal; no other (ulcers or bleeding) TEETH & GINGIVA: no other (bleeding observed and inflammation present) Eye: COMMON NORMALS: conjunctivae normal CONJUNCTIVA: Yes conjunctivae normal SCLERA: sclerae normal Neck/C-Spine: COMMON NORMALS: thyroid normal THYROID: thyroid normal CAROTIDS: Yes normal carotid upstroke (and runoff) Chest: COMMONS NORMALS: inspection of chest normal Resp: EFFORT & INSPECTION: Yes symmetric chest movement and No uses accessory muscles OTHER: Sounds are heard bilaterally with scattered wheezes and crackles. Diminished intensity of breath sounds the bases. Cardio: COMMON NORMALS: regular rate and regular rhythm PALPATION: no heave, no palpable S3 and no thrill RATE: regular rate RHYTHM: regular rhythm BRUITS: no abdominal aortic bruits PERIPHERAL PULSES: femoral pulses present positive bilateral (Normal), posterior tibial pulses present positive bilateral (Normal) and dorsalis pedis pulses present positive bilateral (Normal) GI: AUSCULTATION: Yes normoactive bowel sounds and No abdominal bruit PALPATION: No tender, No hepatomegaly, No splenomegaly and No mass Back/Pelvis: GENERAL BACK: No swelling and No other (joint deformities) THORACIC SPINE/UPPER BACK: No kyphosis present LUMBAR SPINE/LOWER BACK: No lumbar scoliosis present Extremity: COMMON NORMALS: no pedal edema (Trace edema bilaterally in the lower extremities) GENERAL: No cyanosis Neuro: COMMON NORMALS: oriented x3; negative for no focal motor deficits SENSORIUM/ORIENTATION: Yes alert MOTOR EXAM: No tremor Psych: MOOD & AFFECT: Yes other (Normal mood and affect) Skin: COMMON NORMALS: skin turgor normal; negative for no petechiae GENERAL SKIN EXAM: turgor normal, skin not dry and no erythema RASHES: rash noted NAILS: normal, no clubbing, not discolored and no other (cyanosis) A&P Assessment and plan (1) NSTEMI (non-ST elevated myocardial infarction): the troponin I is trending upwards. Patient denies any chest pain. Has some amount of shortness of breath and generalized wheezing. She was extubated last night. Status: Acute Code(s): I21.4 - Non-ST elevation (NSTEMI) myocardial infarction (2) COPD with acute exacerbation: the oxygenation is improving.currently she is on 3 L of oxygen by nasal cannula. She has a cough and wheezing. The overall symptoms are improving. Status: Acute Code(s): J44.1 - Chronic obstructive pulmonary disease with (acute) exacerbation (3) Acute systolic heart failure: Patient may have a mildly decompensated heart failure at this time. She need to be carefully treated with IV diuretics. Status: Acute Code(s): I50.21 - Acute systolic (congestive) heart failure (4) Respiratory failure: this could be multifactorial. Heart failure, LV dysfunction, COPD exacerbation, upper respiratory infection/pneumonia, etc. Status: Acute Qualifiers: Respiratory failure complication: hypoxia Chronicity: acute on chronic Qualified Code(s): J96.21 - Acute and chronic respiratory failure with hypoxia Code(s): J96.90 - Respiratory failure, unspecified, unspecified whether with hypoxia or hypercapnia (5) Hypertension: patient had accelerated hypertension last night with a systolic blood pressure in the 200 range. Currently the blood pressure is getting under control. Status: Acute Qualifiers: Hypertension type: essential hypertension Qualified Code(s): I10 - Essential (primary) hypertension Code(s): I10 - Essential (primary) hypertension (6) Hypokalemia: This could be multifactorial. IV diuretic therapy could be partly contributing to this. Patient had IV potassium infusion. Will have a repeat BMP in the morning. Status: Acute Code(s): E87.6 - Hypokalemia Additional A&P Information Additional A&P Information: may try to optimize bronchodilator therapy. Continue careful IV diuresis. Repeat troponin T to follow-up on the trend. Consider cardiac catheterization, once the respiratory status is stable Attestations Medical Necessity Statement*: Patient requires continued hospital stay for close monitoring and further management Coding Level of Care Code Acute Hydrochloric Area Supervisor for Chg Fwd Exam Problem Focused Medical Decision Making Moderate Complexity Diagnoses NSTEMI (non-ST elevated myocardial infarction) I21.4 COPD with acute exacerbation J44.1 Acute systolic heart failure I50.21 Respiratory failure J96.21 Respiratory failure complication: hypoxia Chronicity: acute on chronic Hypertension I10 Hypertension type: essential hypertension Hypokalemia E87.6 Time Spent (min) 45
[2019-03-11] MEDS: enoxaparin 40 mg/0.4 mL Syringe SUBCUT (18:21)
[2019-03-11] MEDS: clopidogrel 75 mg Tablet 150 MG PO (18:21)
[2019-03-11] MEDS: atorvastatin 40 mg Tablet 20 MG PO (20:54)
[2019-03-11] MEDS: guaiFENesin 600 mg Tablet PO (21:34)
[2019-03-12] VITALS (30 sets, daily range): BP systolic 125–177; BP diastolic 64–111; PULSE 92–115; RESP 12–22; TEMP 36.8; O2SAT 91–100
[2019-03-12] MEDS: acetaminophen 325 mg Tablet 650 MG PO (02:58)
[2019-03-12] MEDS: ipratropium-albuterol 3 mL Neb INHALATION ×6 (02:59→23:02)
--- NOTE | 2019-03-12 03:08 | PC.NURSE ---
See interfaced for vitals
[2019-03-12 04:54] LABS: Basophils % 0.1 %; Hematocrit 38.3 % (37.0-47.0); Hemoglobin 11.8 g/dL (11.5-15.3); Lymphocytes # 2.1 10^3/uL (0.8-4.8); Lymphocytes % 15.3 %; Mean Corpuscular HGB Conc 30.8 g/dL (30.0-36.0); Mean Corpuscular Hemoglobin 27.1 pg (28.0-34.0); Mean Corpuscular Volume 87.8 fL (81-99); Mean Platelet Volume 11.1 fL (7.4-10.4); Monocytes # 1.3 10^3/uL (0.2-0.9); Monocytes % 9.2 %; Neutrophils # 10.3 10^3/uL (1.8-7.7); Neutrophils % 73.7 %; Nucleated Red Blood Cells % 0 %; Platelet Count 204 10^3/cmm (130-400); Red Blood Count 4.36 10^6/uL (4.1-5.3); Red Cell Distribution Width 13.8 % (12.1-15.1); White Blood Count 13.9 10^3/uL (4.0-10.0)
[2019-03-12 05:11] LABS: Anion Gap 16.9 (5-19); Blood Urea Nitrogen 20 mg/dL (8-23); Calcium 8.8 mg/Dl (8.8-10.2); Carbon Dioxide 26 mmol/L (22-29); Chloride 103 mmol/L (98-107); Glucose 105 mg/dL (74-106); Potassium 2.9 mmol/L (3.5-5.1); Sodium 143 mmol/L (136-145)
[2019-03-12] MEDS: sodium chloride 0.9 % (flush) syringe 10 mL 2 ML IV ×2 (06:01→21:55)
--- NOTE | 2019-03-12 07:18 | PC.NURSE ---
Report received from nurse Baltazar. Patient resting in bed.
[2019-03-12] MEDS: budesonide 0.5 mg/2 mL Neb INHALATION ×2 (08:13→19:43)
[2019-03-12] MEDS: levofloxacin-dextrose 5% 750 mg-150 mL Premix 150 MG IV (08:45)
[2019-03-12] MEDS: potassium chloride premix 40 MEQ/100 ML PREMIX 25 MEQ IV (08:50)
[2019-03-12] MEDS: aspirin 81 mg EC Tablet PO (08:50)
[2019-03-12] MEDS: famotidine 20 mg Tablet PO ×2 (08:50→18:12)
[2019-03-12] MEDS: metoprolol tartrate 25 mg Tablet PO ×2 (08:50→18:11)
[2019-03-12] MEDS: clopidogrel 75 mg Tablet 150 MG PO (08:50)
[2019-03-12] MEDS: losartan 50 mg Tablet 25 MG PO (08:51)
[2019-03-12] MEDS: predniSONE 20 mg Tablet 40 MG PO (08:53)
[2019-03-12] MEDS: guaiFENesin 600 mg Tablet PO ×2 (08:57→18:12)
[2019-03-12] MEDS: TRAMadol 50 mg Tablet PO ×2 (09:21→21:51)
[2019-03-12] MEDS: FUROsemide 10 mg/mL SDV 4mL 40 MG IVP ×2 (09:28→21:52)
[2019-03-12] MEDS: ondansetron 2 mg/ML SDV 2 mL 4 MG IVP (09:44)
--- NOTE | 2019-03-12 10:59 | P.PN_ITS ---
Subjective Subjective: Interval history: Patient is feeling little better. She still has significant shortness of breath with activities. Has considerable bilateral wheezing. She is still hypokalemic with a potassium of 2.9. Denies any chest pain or palpitations. She was started on Plavix yesterday. She has no active bleeding. She is on Lovenox, therapeutic dose. Telemetry shows no new arrhythmias. No new symptoms. Medications: Reviewed: Yes (Because of the patient's bleeding history, I may cut back on the dose of the aspirin to baby aspirin) Vitals/I&O/Wt Last Vital Signs Temp 98.3 F 03/12/19 06:00 Pulse 109 H 03/12/19 08:21 Resp 16 03/12/19 08:14 BP 131/81 03/12/19 06:00 Pulse Ox 96 03/12/19 08:14 03/11/19 03/12/19 03/12/19 22:59 06:59 14:59 Intake Total 100 / 346.25 Output Total 650 / 650 Balance 100 / 346.25 -650 / -303.75 Weight last 48 hrs Weight 259 lb 7 oz Weight 251 lb 1.6 oz Physical Exam Const: COMMON NORMALS: oriented x3, alert and well nourished GENERAL APPEARANCE: cooperative, well developed and well hydrated; not in distress HENMT: MOUTH: lip normal; no other (ulcers or bleeding) TEETH & GINGIVA: no other (bleeding observed and inflammation present) Eye: COMMON NORMALS: conjunctivae normal CONJUNCTIVA: Yes conjunctivae normal SCLERA: sclerae normal Neck/C-Spine: COMMON NORMALS: thyroid normal THYROID: thyroid normal CAROTIDS: Yes normal carotid upstroke (and runoff) Chest: COMMONS NORMALS: inspection of chest normal Resp: EFFORT & INSPECTION: Yes symmetric chest movement and No uses accessory muscles OTHER: Sounds are heard bilaterally with scattered wheezes and crackles. Diminished intensity of breath sounds the bases. Cardio: COMMON NORMALS: regular rate and regular rhythm PALPATION: no heave, no palpable S3 and no thrill RATE: regular rate RHYTHM: regular rhythm BRUITS: no abdominal aortic bruits PERIPHERAL PULSES: femoral pulses present, posterior tibial pulses present and dorsalis pedis pulses present GI: AUSCULTATION: Yes normoactive bowel sounds and No abdominal bruit PALPATION: No tender, No hepatomegaly, No splenomegaly and No mass Back/Pelvis: GENERAL BACK: No swelling and No other (joint deformities) T HORACIC SPINE/UPPER BACK: No kyphosis present LUMBAR SPINE/LOWER BACK: No lumbar scoliosis present Extremity: NARRATIVE EXTREMITY EXAM: Patient has 1+ edema both lower extremities. GENERAL: No cyanosis Neuro: COMMON NORMALS: oriented x3 SENSORIUM/ORIENTATION: Yes alert MOTOR EXAM: No tremor Psych: MOOD & AFFECT: Yes other (Normal mood and affect) Skin: COMMON NORMALS: skin turgor normal GENERAL SKIN EXAM: turgor normal, skin not dry and no erythema RASHES: rash noted NAILS: normal, no clubbing, not discolored and no other (cyanosis) A&P Assessment and plan (1) Hypokalemia: Patient continues to be hypokalemic. There is a potassium supplement with IV infusion. Status: Acute Code(s): E87.6 - Hypokalemia (2) NSTEMI (non-ST elevated myocardial infarction): Patient is currently asymptomatic. May continue the baby aspirin and Plavix. She may resume a cardiac authorization, to reevaluate the coronary status as well as the graft status. Based on the results, further recommendations will be made Status: Acute Code(s): I21.4 - Non-ST elevation (NSTEMI) myocardial infarction (3) Hypertension: The blood pressure seems to be getting under control. May continue on the current medications. Status: Acute Qualifiers: Hypertension type: essential hypertension Qualified Code(s): I10 - Essential (primary) hypertension Code(s): I10 - Essential (primary) hypertension (4) Coronary artery disease: History of coronary disease and coronary artery bypass surgery as mentioned above. Management as mentioned above Status: Acute Code(s): I25.10 - Atherosclerotic heart disease of [place] coronary artery without angina pectoris (5) COPD with acute exacerbation: Patient is on bronchodilator therapy and antibiotics. She still has significant wheezing bilaterally. Her white cell count also is elevated. Continue the management as per the primary. Status: Acute Code(s): J44.1 - Chronic obstructive pulmonary disease with (acute) exacerbation (6) Acute systolic heart failure: Patient's heart failure seems to be fairly compensated. May continue the careful IV diuretics. Echocardiogram findings as mentioned below. Status: Acute Code(s): I50.21 - Acute systolic (congestive) heart failure Attestations Medical Necessity Statement*: Patient requires continued hospital stay for close monitoring and further management Coding Level of Care Code Acute Glass Presser for Chg Fwd History Detailed Exam Detailed Medical Decision Making Moderate Complexity Diagnoses Hypokalemia E87.6 NSTEMI (non-ST elevated myocardial infarction) I21.4 Hypertension I10 Hypertension type: essential hypertension Coronary artery disease I25.10 COPD with acute exacerbation J44.1 Acute systolic heart failure I50.21
--- NOTE | 2019-03-12 13:14 | P.PN_ITS ---
Subjective Subjective: Interval history: Patient reports she is feeling okay. Less short of breath. Coughs when she takes a deep breath. Medications: Reviewed: Yes Vitals/I&O/Wt Last Vital Signs Temp 98.3 F 03/12/19 06:00 Pulse 94 03/12/19 11:48 Resp 21 H 03/12/19 11:44 BP 131/81 03/12/19 06:00 Pulse Ox 97 03/12/19 11:44 03/11/19 03/12/19 03/12/19 22:59 06:59 14:59 Intake Total 100 / 346.25 Output Total 650 / 650 Balance 100 / 346.25 -650 / -303.75 Weight last 48 hrs Weight 117.679 kg Weight 113.897 kg Physical Exam Narrative: EXAM NARRATIVE: General exam no apparent distress Cardiovascular regular in rhythm without murmur. Heart sounds distant Lungs a few faint expiratory wheezes Abdomen is soft with positive bowel sounds Extremities trace to 1+ edema bilaterally. A&P Assessment and plan (1) Respiratory failure: Extubated 2 days ago. Dyspnea has improved significantly. Status: Acute Qualifiers: Chronicity: acute on chronic Respiratory failure complication: hypoxia Qualified Code(s): J96.21 - Acute and chronic respiratory failure with hypoxia Code(s): J96.90 - Respiratory failure, unspecified, unspecified whether with hypoxia or hypercapnia (2) Acute systolic heart failure: Compensation improving. Diuresis occurred yesterday. Needs further work- up. Cardiology contemplating angiogram. Status: Acute Code(s): I50.21 - Acute systolic (congestive) heart failure (3) COPD with acute exacerbation: Improved. She has transition to prednisone orally. She is on pulmonary toilet. She continues to improve. Status: Acute Code(s): J44.1 - Chronic obstructive pulmonary disease with (acute) exacerbation (4) Obesity: Improved control. Status: Acute Code(s): E66.9 - Obesity, unspecified (5) Coronary artery disease: With elevated troponin, reduced ejection fraction cardiology is following and considering angiogram Status: Acute Code(s): I25.10 - Atherosclerotic heart disease of [place] coronary artery without angina pectoris (6) Hypertension: Higher blood pressures noted overnight. Evaluating currently. Hydralazine was added. Metoprolol will be increased. Status: Acute Qualifiers: Hypertension type: essential hypertension Qualified Code(s): I10 - Essential (primary) hypertension Code(s): I10 - Essential (primary) hypertension (7) GERD (gastroesophageal reflux disease): Status: Acute Code(s): K21.9 - Gastro-esophageal reflux disease without esophagitis (8) Hypokalemia: Still present. Will increase supplementation. Check magnesium level tomorrow. Status: Acute Code(s): E87.6 - Hypokalemia Attestations Medical Necessity Statement*: Needs continued hospital stay for pulmonary toilet, further diuresis, and definitive evaluation for decreased ejection fraction. Coding Level of Care Code Acute Psychological Stress Evaluator for [facility] Fwd Diagnoses Respiratory failure J96.21 Chronicity: acute on chronic Respiratory failure complication: hypoxia Acute systolic heart failure I50.21 COPD with acute exacerbation J44.1 Obesity E66.9 Coronary artery disease I25.10 Hypertension I10 Hypertension type: essential hypertension GERD (gastroesophageal reflux disease) K21.9 Hypokalemia E87.6
--- NOTE | 2019-03-12 14:08 | PC.CHAP ---
Pastoral Care Encounter/Spiritual Assessment Type of Contact [] Declined publication designer visit [] Patient/Family/Request visit [] Outpatient visit [] Follow-up visit [] Physician referral [] Code/Alert [x] Routine visit [] Staff referral [] Actively dying [] Patient sleeping [] Family support [] [] Out of room [] Palliative care [] [] Receiving care in room [] Pre-surgical visit [] Trauma [] Long length of stay [x] ICU visit [] Other: Relational/Emotional Strength [x] Patient feels connected with others/family/visitors/staff [x] Distress [] Loneliness/isolation [] Abandonment Spirituality of Patient [x] Person of Sylwia [] Attends Mu-Ism of their [place] [x] Believes in Prayer [] Reads Bible or Taoism materials [] There are Spiritual issues to be addressed Gang Supervisor Interventions [x] Prayer [x] Active listening [x] Non-anxious presence [x] Spiritual/emotional support [] Crisis/trauma care [] Spiritual counseling [] Bereavement support [] Provided bereavement packet [] Provided Bible/devotional materials [] Provided toy/stuffed animal, coloring book to patient or family member [x] Completed spiritual assessment [] Provided Communion [] Anointing/[place] [] Salvation [] Other: Impact on Illness or Injury [] Angry [x] Fearful [x] Anxious [] Often cries [x] Exhaustion [] Unable to work [] Unable to attend gnosticism [] Unable to walk/stand [] Unable to read [] Unable to drive [] Unable to eat/drink [x] Unable to sleep [] Unable to be with family [] Other: Summary Patient expressed fearfulness of laying down due to breathing difficulties. She stated that she had been given Tramadol and sshe said it worked well to allow her to sleep. Patient says she's a fighter and isn't going to give up. Patient was visited and prayed with by publication designersophie Davis Time spent with patient 15 minutes
[2019-03-12] MEDS: enoxaparin 40 mg/0.4 mL Syringe SUBCUT (18:12)
[2019-03-12] MEDS: atorvastatin 40 mg Tablet 20 MG PO (21:52)
[2019-03-13] VITALS (22 sets, daily range): BP systolic 102–167; BP diastolic 49–82; PULSE 83–116; RESP 10–24; TEMP 36.3–37.1; O2SAT 92–100
[2019-03-13] MEDS: ondansetron 2 mg/ML SDV 2 mL 4 MG IVP (01:52)
[2019-03-13] MEDS: ipratropium-albuterol 3 mL Neb INHALATION ×5 (03:33→20:07)
[2019-03-13] MEDS: TRAMadol 50 mg Tablet PO ×3 (03:40→21:30)
[2019-03-13] MEDS: sodium chloride 0.9 % (flush) syringe 10 mL 2 ML IV ×3 (05:18→21:31)
[2019-03-13 05:30] LABS: Basophils % 0.1 %; Eosinophils % 0.3 %; Hematocrit 35.6 % (37.0-47.0); Hemoglobin 10.8 g/dL (11.5-15.3); Lymphocytes # 1.9 10^3/uL (0.8-4.8); Mean Corpuscular HGB Conc 30.3 g/dL (30.0-36.0); Mean Corpuscular Volume 85.8 fL (81-99); Mean Platelet Volume 10.9 fL (7.4-10.4); Monocytes % 10.2 %; Neutrophils # 6.1 10^3/uL (1.8-7.7); Neutrophils % 65.9 %; Nucleated Red Blood Cells % 0 %; Platelet Count 161 10^3/cmm (130-400); Red Blood Count 4.15 10^6/uL (4.1-5.3); Red Cell Distribution Width 13.8 % (12.1-15.1); White Blood Count 9.3 10^3/uL (4.0-10.0)
[2019-03-13 05:56] LABS: Anion Gap 12.8 (5-19); Blood Urea Nitrogen 19 mg/dL (8-23); Calcium 8.9 mg/Dl (8.8-10.2); Carbon Dioxide 28 mmol/L (22-29); Chloride 102 mmol/L (98-107); Glucose 92 mg/dL (74-106); Magnesium 2.3 mg/dL (1.7-2.3); Potassium 3.8 mmol/L (3.5-5.1); Sodium 139 mmol/L (136-145)
[2019-03-13] MEDS: levofloxacin-dextrose 5% 750 mg-150 mL Premix 150 MG IV (07:29)
[2019-03-13] MEDS: budesonide 0.5 mg/2 mL Neb INHALATION ×2 (08:10→20:07)
[2019-03-13] MEDS: guaiFENesin 600 mg Tablet PO ×2 (09:04→18:18)
[2019-03-13] MEDS: aspirin 81 mg EC Tablet PO (09:05)
[2019-03-13] MEDS: famotidine 20 mg Tablet PO ×2 (09:05→18:19)
[2019-03-13] MEDS: metoprolol tartrate 25 mg Tablet PO (09:05)
[2019-03-13] MEDS: clopidogrel 75 mg Tablet PO (09:05)
[2019-03-13] MEDS: losartan 50 mg Tablet 25 MG PO (09:06)
[2019-03-13] MEDS: predniSONE 20 mg Tablet 40 MG PO (09:06)
[2019-03-13] MEDS: FUROsemide 10 mg/mL SDV 4mL 40 MG IVP ×2 (09:07→21:29)
--- NOTE | 2019-03-13 09:21 | PC.NURSE ---
transferred to [facility] per w/c with cell phone and interactive web developer.
--- NOTE | 2019-03-13 10:37 | PM.PN ---
Subjective Subjective: Interval history: Last 24 hours: Patient was transferred out of unit. She is -2.4 L from yesterday. Subjective: She denies having any chest pain and states that her breathing has improved. Vitals/I&O/Wt Last Vital Signs Temp 97.3 F L 03/13/19 10:00 Pulse 88 03/13/19 10:00 Resp 17 03/13/19 10:00 BP 103/58 03/13/19 10:00 Pulse Ox 98 03/13/19 10:00 03/12/19 03/13/19 03/13/19 22:59 06:59 14:59 Intake Total 480 / 480 Output Total 3255 / 3255 Balance -3255 / -2625 480 / 480 Weight last 48 hrs Weight 250 lb 6 oz Weight 259 lb 7 oz Physical Exam Const: EXAM LIMITATIONS: no altered mental status GENERAL APPEARANCE: cooperative NUTRITIONAL APPEARANCE: obese ORIENTATION/CONSCIOUSNESS: Yes awake, Yes oriented to person, Yes oriented to place and Yes oriented to time HENMT: COMMON NORMALS: normocephalic, head/scalp atraumatic and hearing grossly normal bilaterally HEAD & SCALP: normocephalic and atraumatic Chest: COMMONS NORMALS: inspection of chest normal CHEST: Yes tenderness Resp: EFFORT & INSPECTION: No able to speak in complete sentences, Yes symmetric chest movement, Yes respiratory distress (mild), No actively coughing and No uses accessory muscles AUSCULTATION: diminished lung sounds (bilateral bases) Cardio: COMMON NORMALS: regular rhythm, S1 normal heart sound, S2 normal heart sound, no gallops, no clicks, no murmurs and peripheral pulses 2+ throughout JUGULAR VENOUS DISTENTION: no JVD RHYTHM: regular rhythm HEART SOUNDS: S1 normal and S2 normal PERIPHERAL PULSES: pulses 2+ throughout GI: COMMON NORMALS: soft to palpation PALPATION: Yes soft RECTAL EXAM: deferred Extremity: GENERAL: Yes edema (trace-1+ edema bilateral lower extremeties) Neuro: SENSORIUM/ORIENTATION: Yes oriented to person, Yes oriented to place and Yes oriented to time SPEECH: speech normal Skin: COMMON NORMALS: no rashes or lesions noted GENERAL SKIN EXAM: no rashes or lesions noted A&P Assessment and plan (1) NSTEMI (non-ST elevated myocardial infarction): -Continue aspirin,plavix, statin and low-dose metoprolol. -She would benefit from coronary angiogram. Was discussed with the patient and she is agreeable with the plan. -Depending on her respiratory status, plan for coronary angiogram tomorrow. Tentatively I will keep her n.p.o. after midnight. Status: Acute Code(s): I21.4 - Non-ST elevation (NSTEMI) myocardial infarction (2) Acute systolic heart failure: Drop in left ventricular ejection fraction to 30% with regional wall motion abnormality (TDS). -History of coronary artery disease with history of CABG x2 in 2009 stress test in 2013 without any significant ischemia. -Continue Lasix 40 mg IV twice a day. -She has been started on low-dose losartan 25 mg and metoprolol tartrate 25 mg twice a day. I would transition metoprolol tartrate to metoprolol succinate. Status: Acute Code(s): I50.21 - Acute systolic (congestive) heart failure (3) Obesity: Status: Acute Code(s): E66.9 - Obesity, unspecified (4) Coronary artery disease: s/p CABG x 2 Status: Acute Code(s): I25.10 - Atherosclerotic heart disease of [place] coronary artery without angina pectoris (5) Hypertension: Status: Acute Qualifiers: Hypertension type: essential hypertension Qualified Code(s): I10 - Essential (primary) hypertension Code(s): I10 - Essential (primary) hypertension (6) GERD (gastroesophageal reflux disease): Status: Acute Code(s): K21.9 - Gastro-esophageal reflux disease without esophagitis (7) COPD with acute exacerbation: Status: Acute Code(s): J44.1 - Chronic obstructive pulmonary disease with (acute) exacerbation Attestations Medical Necessity Statement*: Patient needs hospital stay for management of non-ST elevation VT and newly diagnosed acute systolic congestive heart failure. Time Spent in Patient Care: 16 - 35 minutes Coding Level of Care Code Acute Rotary Pump Operator for Chg Fwd History Expanded Problem Focused Exam Expanded Problem Focused Diagnoses NSTEMI (non-ST elevated myocardial infarction) I21.4 Acute systolic heart failure I50.21 Obesity E66.9 Coronary artery disease I25.10 Hypertension I10 Hypertension type: essential hypertension GERD (gastroesophageal reflux disease) K21.9 COPD with acute exacerbation J44.1 Time Spent (min) 30
[2019-03-13] MEDS: levothyroxine 50 mcg Tablet PO (11:40)
--- NOTE | 2019-03-13 12:07 | PM.PN ---
Subjective Subjective: Interval history: Sarika reports she is doing okay. No specific complaints. Less short of breath. No chest discomfort. Feels like her edema is less. Medications: Reviewed: Yes Vitals/I&O/Wt Last Vital Signs Temp 98.2 F 03/13/19 11:27 Pulse 90 03/13/19 11:27 Resp 22 H 03/13/19 11:27 BP 158/66 03/13/19 11:27 Pulse Ox 98 03/13/19 11:27 03/12/19 03/13/19 03/13/19 22:59 06:59 14:59 Intake Total 480 / 480 Output Total 3255 / 3255 1000 / 1000 Balance -3255 / -2625 -520 / -520 Weight last 48 hrs Weight 113.568 kg Weight 117.679 kg Physical Exam Narrative: EXAM NARRATIVE: General exam is no apparent distress Cardiovascular regular rate and rhythm with a 2/6 systolic murmur Lungs diminished breath sounds bilaterally but no crackles Abdomen is soft with positive bowel sounds Extremities trace edema bilaterally A&P Assessment and plan (1) Respiratory failure: Extubated 3 days ago. Respiratory failure has resolved Status: Acute Qualifiers: Chronicity: acute on chronic Respiratory failure complication: hypoxia Qualified Code(s): J96.21 - Acute and chronic respiratory failure with hypoxia Code(s): J96.90 - Respiratory failure, unspecified, unspecified whether with hypoxia or hypercapnia (2) Acute systolic heart failure: Compensation improving. Continues to diurese well. Needs further work-up. Cardiology contemplating angiogram. Status: Acute Code(s): I50.21 - Acute systolic (congestive) heart failure (3) COPD with acute exacerbation: Improved. She has transition to prednisone orally. She is on pulmonary toilet. Markedly improved Status: Acute Code(s): J44.1 - Chronic obstructive pulmonary disease with (acute) exacerbation (4) Obesity: Improved control. Status: Acute Code(s): E66.9 - Obesity, unspecified (5) Coronary artery disease: With elevated troponin, reduced ejection fraction cardiology is following and considering angiogram Status: Acute Code(s): I25.10 - Atherosclerotic heart disease of [place] coronary artery without angina pectoris (6) Hypertension: Blood pressure controlled on losartan, hydralazine, metoprolol Status: Acute Qualifiers: Hypertension type: essential hypertension Qualified Code(s): I10 - Essential (primary) hypertension Code(s): I10 - Essential (primary) hypertension (7) GERD (gastroesophageal reflux disease): Status: Acute Code(s): K21.9 - Gastro-esophageal reflux disease without esophagitis (8) Hypokalemia: Resolved Status: Acute Code(s): E87.6 - Hypokalemia Attestations Medical Necessity Statement*: Needs continued hospitalization for further diuresis secondary to acute systolic heart failure Coding Level of Care Code Acute Marketing Engineer for Chg Fwd Diagnoses Respiratory failure J96.21 Chronicity: acute on chronic Respiratory failure complication: hypoxia Acute systolic heart failure I50.21 COPD with acute exacerbation J44.1 Obesity E66.9 Coronary artery disease I25.10 Hypertension I10 Hypertension type: essential hypertension GERD (gastroesophageal reflux disease) K21.9 Hypokalemia E87.6
--- NOTE | 2019-03-13 12:56 | PC.NURSE ---
From ICU Received pt from ICU. Central line intact with 3 lumens. Transparent dressing noted. Pt has 2 l/min per NC. Warren catheter draining and intact. VS taken and wnl.
[2019-03-13] MEDS: enoxaparin 40 mg/0.4 mL Syringe SUBCUT (18:19)
[2019-03-13] MEDS: metoprolol succinate ER (24 HR) 25 mg Tablet PO (18:20)
[2019-03-13] MEDS: atorvastatin 40 mg Tablet 20 MG PO (21:30)
[2019-03-14] VITALS (30 sets, daily range): BP systolic 92–154; BP diastolic 47–85; PULSE 80–102; RESP 13–20; TEMP 36.6–36.7; O2SAT 94–108; BMI 43.0
[2019-03-14] MEDS: ipratropium-albuterol 3 mL Neb INHALATION ×7 (00:38→23:44)
[2019-03-14 05:42] LABS: Anion Gap 12.4 (5-19); Blood Urea Nitrogen 24 mg/dL (8-23); Carbon Dioxide 31 mmol/L (22-29); Chloride 101 mmol/L (98-107); Glucose 93 mg/dL (74-106); Potassium 4.4 mmol/L (3.5-5.1); Sodium 140 mmol/L (136-145)
[2019-03-14] MEDS: sodium chloride 0.9% 1,000 ML 50 ML IV ×2 (06:14→19:07)
[2019-03-14] MEDS: sodium chloride 0.9 % (flush) syringe 10 mL 2 ML IV (06:15)
[2019-03-14] MEDS: diphenhydrAMINE 50 mg Capsule PO (06:15)
--- NOTE | 2019-03-14 06:24 | XACV_ITS ---
Exam Room: [facility] Ht: 163 cm Wt: 113 kg BSA: 2.32 m2 Gender: Female : 1945 Any Known Allergies: Other Exam Priority: Routine Procedure(s): Procedure Description: Diagnostic procedure Procedure Description: Left Heart Catheterization Procedure Description: Left ventriculography Procedure Description: Venous Graft Catheterization Procedure Description: ROPER Graft Catheterization Procedure Description: Coronary Angiography Diagnostic Cath Status: Urgent Diagnostic Findings Morbidly obese patient with history of coronary disease and coronary bypass surgery approximately 10 years ago. No bypass report available. Apparently has left internal mammary to the LAD and vein graft to the circumflex. Presented with respiratory insufficiency, respiratory failure and a need for intubation. Troponin was positive. Echo revealed significant decrease in the ejection fraction from previous studies. Coronary angiography recommended. Angiography reveals right coronary artery dominance. The left main contains a 70 to 80% ostial stenosis. The circumflex and LAD are basically normal. Both vessel supplies some collateral flow to the distal right coronary artery. The right coronary artery appears to be occluded at its origin. There are apparently 2 bypass grafts. There is no evidence of any to and fro contrast motion from either the circumflex or LAD suggesting that both grafts may be occluded. There is not a graft arising from the aorta. If there is a circumflex vein graft it is occluded. The left internal mammary is also occluded at its origin. Subclavian artery contains a aneurysm. Beyond this there is a narrowing of the subclavian artery which exhibited significant spasm upon injecting the vessel. There is also a stenosis there approximately 50%. 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 Lastly there is a metal ring placed very high in the vicinity of the aortic arch which looks like a graft marker however nothing appears to emanate from this. Conclusions Severe left main coronary artery disease and occluded right coronary artery. Both grafts appear to be occluded. Unusual placement of a graft marker high in the aorta. Eggshell aorta. Ejection fraction approximately 40 to 45% with 2+ mitral regurgitation. Wall motion disturbances as noted. Recommendations 1 should obtain the coronary bypass surgery report to ensure the grafts are as indicated. If the angiogram is as appears consideration of repeat bypass surgery should be given for treatment of left main coronary artery disease and occlusion of the right coronary artery. Ventriculography Ejection Fraction: 0.5 % Left Ventriculography Findings: Mild hypokinesis of the inferior base, mid inferior wall, apex and anterior wall. The anterior base contracts normally. 2+ mitral regurgitation. Pressures Phase:Rest AO : 92 mmHg / 58 mmHg ( 65 mmHg ) @ 1:21:00 AM 94 mmHg / 44 mmHg ( 65 mmHg ) @ 1:22:00 AM 95 mmHg / 42 mmHg ( 65 mmHg ) @ 1:33:00 AM 119 mmHg / 43 mmHg ( 72 mmHg ) @ 1:40:00 AM 118 mmHg / 43 mmHg ( 72 mmHg ) @ 1:40:00 AM LV : 131 mmHg / -9 mmHg / @ 1:39:00 AM 130 mmHg / -11 mmHg / @ 1:40:00 AM 131 mmHg / -6 mmHg / @ 1:40:00 AM Valves Phase:DefaultPhase AV : 13.0 mmHg @ 7:55:15 AM AV Mean Gradient: 17.0 mmHg @ 7:55:15 AM Clinical Evaluation EBL: 5mL-10mL Procedural Details Pt arrived to analyst microbiology lab with central line in right subclavian. Cardiovascular Instability: No, if yes, Persistant Ischemic Symptoms. Unable to visualize ROPER. Medication's Wasted: Heparin = 4000 units. [employer] documentation system has techinically issues with time/date state for this procedure. All documentation is for 03/14/2019. Procedure Consent Obtained. Pre-Procedure Time Out. Identified patient by full name and date of as verbalized by the patient/guarantor. Does the consent match the physician's order: Yes. Accurate & Complete Informed Consent: Yes. Inpatient/Outpatient History & Physical on Chart: Yes. If H&P is completed, is and addenduem needed: No; If yes, is the addendum complete: N/A. Visualize and Verify Site with Patient/Guarantor: N/A. Relevant Radiology Images available: N/A. Pre-op teaching completed and patient verbalized understanding. The risks, benefits, and alternatives of sedation and/or procedure were discussed by physician. The patient agrees to continue. Procedure started. Physician arrived. Correct patient, site and procedure confirmed by cath team. PERRLA. Strong, equal hand closed circuit screen watcher bilaterally. Lungs clear x 5 lobes. IV Fluids: 0.9% NaCl at KVO. 0 mL infused prior to analyst microbiology lab. Pre Procedural Pulses: bilateral dorsalis pedis was 3+. Pre Procedural Pulses: bilateral posterior tibial was 3+. Pre Procedural Pulses: bilateral radial was 3+. Oxygen started at 2liters/min via nasal canula. bilateral groins was prepped with chloroprep then draped in the usual sterile fashion. Baseline sample Acquired. HR: 95 BPM. [facility] Clinical Fraility Score: 4: Vulnerable. Mobile Electronics Installer Indications: ACS > 24 hours. Chest Pain Symptom Assessment: Typical Angina Symptoms. Equipment: 6F - Femoral. Cardiac Cath Pack. ACIST Manifold Kit Model BT 2000. Heparinized Saline (2 units/mL), 1000 mL bag. Physician scrubbed in. Immediate Pre-Procedure Time Out. Correct Patient: Yes; Correct Procedure: Yes; Correct Site: Yes; Correct Patient Position: Yes; Correct Supplies: Yes; Dried Flammable Prep: Yes; Blood Products Available: N/A;. Lidocaine 1% infiltrated to the right groin. Arterial access obtained. A JJ 6F JL4 100cm Diagnostic Catheter was advanced over the wire and used for Left coronary angiography. Multiple views taken of left coronary artery. Catheter out. A CRD 6F JR4 100cm Diagnostic Catheter was advanced over the wire and used for Right coronary angiography. Catheter out. A 6 [place] Ang[place] catheter in over wire. EDP Sample taken: LV 131/-10,14; HR: 93 BPM; SpO2: 97%. LV gram performed in CABELLO @ 10 mL/second for a total of 30 mL. EDP Sample taken: LV 130/-12,17; HR: 95 BPM; SpO2: 97%. Pullback taken: LV 131/-7,24; AO 119/43(72); Mean: 17mmHg, Peak to Peak: 13mmHg, SEP: 26sec/min; HR: 94 BPM; SpO2: 97%. Catheter out. Physician scrubbed out. SVG to OM occluded. A Suture was successful obtaining hemostatsis at the Right Femoral artery insertion site. Sheath(s) sutured into position with 2-0 silk and sterile 4x4's and Op-site applied over the site. No oozing or signs and symptoms of hematoma noted. Arterial sheath flushed and connected to tranducer and pressure bag with heparinized saline. Post Procedure: Pulses reassessed and unchanged. PERRLA. Strong, equal hand closed circuit screen watcher bilaterally. No VTE prophylaxis required. Medication's Wasted: Nitro = 49.8 mg. Total IV fluids: 100 mL. Complications: none. Estimated blood loss: 5mL-10mL. Post-op diagnosis: CAD. Procedure completed. Patient transferred by bed to 1st floor. Vital chart was stopped. Site: Right Femoral artery Sheath Size: 6 Fr Hemostasis Method: Suture Hemostasis Success: Successful Procedure Medications Start: 7:01 AM Stop: 7:01 AM Medication: Versed Amount: 1 mg Route: I.V. Start: 7:01 AM Stop: 7:01 AM Medication: Fentanyl Amount: 50 mcg Route: I.V. Start: 7:20 AM Stop: 7:20 AM Medication: Versed Amount: 1 mg Route: I.V. Start: 7:20 AM Stop: 7:20 AM Medication: Fentanyl Amount: 50 mcg Route: I.V. Start: 7:35 AM Stop: 7:35 AM Medication: Nitrogylcerin Amount: 200 mcg Route: I.A. I, the attending physician, have reviewed and verified all procedure medications. Yes, all medications given per verbal order History/Risk Factors Hypertension: No Dyslipidemia: Yes Peripheral Arterial Disease (PAD): No Myocardial Infarction ([place]): No Obesity: Yes Renal Disease: No Tobacco Use: Former Prior Interventions PCI: No CABG: Yes Valve Surgery: No Report Signatures Finalized by:Dr. Julián Sterling MD on 03/14/2019 8:47:14 AM
--- NOTE | 2019-03-14 06:50 | PC.NURSE ---
off unit to pharmacy laboratory technician
--- NOTE | 2019-03-14 07:00 | XACV_ITS ---
Exam Room: [facility] Ht: 163 cm Wt: 113 kg BSA: 2.32 m2 Gender: Female : 1945 Any Known Allergies: Other Exam Priority: Routine Procedure(s): Procedure Description: Diagnostic procedure Procedure Description: Venous Graft Catheterization Diagnostic Cath Status: Elective Diagnostic Findings Patient underwent angiography a few hours ago. Bypass surgery report was not available. It was assumed that the internal mammary artery was used in its standard position. It was also assumed that a saphenous vein graft arose from the aorta. During the angiogram I noticed a graft marker sitting above the aorta. We then found the bypass surgery report from 10 years ago. She had a very unusual situation. She has a porcelain or eggshell aorta so it was not used for a graft implantation site. A piece of vein graft was attached to the innominate artery. The mammary was then removed from its pedicle and used as a free mammary graft the proximal point of which was inserted into and from the saphenous vein graft. The mammary was placed to the LAD and the vein graft to the marginal branch. Patient has left main disease and now her right coronary artery is occluded. This procedure was done from the right radial artery. The 6 [place] sheath and catheter caused spasm so a 5 [place] catheter was used. The subclavian and axillary arteries are normal. There is significant calcification of the aortic knob, the ascsending aorta and the aortic arch. The bypass graft is occluded at its origin. There is also a 40 to 50% stenosis of the ostial innominate artery. Conclusions Occluded bypass which originates from the innominate artery. Recommendations Consider left main coronary artery stent. Diagnostic RX Recommendation: PCI w/o planned CABG Anticoagulation: Heparin Pressures Phase:Rest AO : 106 mmHg / 61 mmHg ( 78 mmHg ) @ 6:20:00 AM Clinical Evaluation EBL: 5mL-10mL Procedural Details Cardiovascular Instability: No. Pt has central line in right subclavian. Oxygen started at 3liters/min via oxymask mask. Medication's Wasted: Heparin = 2000 units. Procedure Consent Obtained. Pre-Procedure Time Out. Identified patient by full name and date of as verbalized by the patient/guarantor. Does the consent match the physician's order: Yes. Accurate & Complete Informed Consent: Yes. Inpatient/Outpatient History & Physical on Chart: Yes. If H&P is completed, is and addenduem needed: No; If yes, is the addendum complete: N/A. Visualize and Verify Site with Patient/Guarantor: N/A. Relevant Radiology Images available: N/A. Pre-op teaching completed and patient verbalized understanding. The risks, benefits, and alternatives of sedation and/or procedure were discussed by physician. The patient agrees to continue. Procedure started. [facility] Clinical Fraility Score: 4: Vulnerable. French Drawer Indications: ACS > 24 hours. Chest Pain Symptom Assessment: Typical Angina Symptoms. Correct patient, site and procedure confirmed by cath team. PERRLA. Strong, equal hand balling head tender bilaterally. Lungs clear x 5 lobes. IV Fluids: 0.9% NaCl at KVO. 400 mL infused prior to casting house laborer. Pre Procedural Pulses: bilateral dorsalis pedis was 3+. Pre Procedural Pulses: bilateral posterior tibial was 3+. Pre Procedural Pulses: right radial was Doppled. right radial was prepped with chloroprep then draped in the usual sterile fashion. Physician arrived. Equipment: 6F - Radial. Baseline sample Acquired. HR: 106 BPM. Physician scrubbed in. Immediate Pre-Procedure Time Out. Correct Patient: Yes; Correct Procedure: Yes; Correct Site: Yes; Correct Patient Position: Yes; Correct Supplies: Yes; Dried Flammable Prep: Yes; Blood Products Available: N/A;. Lidocaine 1% infiltrated to the right radial. Arterial access obtained. A 6 ir[place] IM catheter in over wire. Catheter removed over the exchange wire. Catheter removed over the exchange wire. Physician scrubbed out. A TR Band was successful obtaining hemostatsis at the Right Radial artery insertion site. TR band placed. Hemostasis obtained. Post Procedure: Pulses reassessed and unchanged. PERRLA. Strong, equal hand balling head tender bilaterally. No VTE prophylaxis required. Medication's Wasted: Lidocaine 1% = 18 mL. Medication's Wasted: Nitro = 49.7 mg. Total IV fluids: 50 mL. Post-op diagnosis: CAD. Complications: none. Estimated blood loss: 5mL-10mL. Procedure completed. Vital chart was stopped. Patient transferred by bed to 1st floor. Site: Right Radial artery Sheath Size: 6 Fr Hemostasis Method: TR Band Hemostasis Success: Successful Procedure Medications Start: 12:07 PM Stop: 12:07 PM Medication: Versed Amount: 1 mg Route: I.V. Start: 12:08 PM Stop: 12:08 PM Medication: Fentanyl Amount: 50 mcg Route: I.V. Start: 12:13 PM Stop: 12:13 PM Medication: Nitrogylcerin Amount: 200 mcg Route: I.A. Start: 12:14 PM Stop: 12:14 PM Medication: Verapamil Amount: 5 mg Route: I.A. Start: 12:16 PM Stop: 12:16 PM Medication: Nitrogylcerin Amount: 200 mcg Route: I.A. Start: 12:24 PM Stop: 12:24 PM Medication: Heparin Amount: 4000 units Route: I.V. I, the attending physician, have reviewed and verified all procedure medications. Yes, all medications given per verbal order History/Risk Factors Hypertension: No Dyslipidemia: Yes Peripheral Arterial Disease (PAD): No Myocardial Infarction ([place]): No Obesity: Yes Renal Disease: No Tobacco Use: Former Prior Interventions PCI: No CABG: Yes Valve Surgery: No Report Signatures Finalized by:Dr. Julián Sterling MD on 03/14/2019 1:06:49 PM
[2019-03-14] MEDS: budesonide 0.5 mg/2 mL Neb INHALATION ×2 (08:45→19:28)
--- NOTE | 2019-03-14 09:37 | PC.SOCIAL ---
IMM Update Pg 2 of IMM given and explained to patient who voiced understanding. Signed, dated, and timed and placed in chart. Copy provided to patient.
[2019-03-14] MEDS: levofloxacin-dextrose 5% 750 mg-150 mL Premix 150 MG IV (09:49)
[2019-03-14] MEDS: famotidine 20 mg Tablet PO ×2 (09:50→19:05)
[2019-03-14] MEDS: predniSONE 20 mg Tablet 40 MG PO (09:50)
[2019-03-14] MEDS: losartan 50 mg Tablet 25 MG PO (09:50)
[2019-03-14] MEDS: guaiFENesin 600 mg Tablet PO ×2 (09:50→19:05)
[2019-03-14] MEDS: aspirin 81 mg EC Tablet PO (09:50)
[2019-03-14] MEDS: FUROsemide 10 mg/mL SDV 4mL 40 MG IVP (09:51)
[2019-03-14] MEDS: metoprolol succinate ER (24 HR) 25 mg Tablet PO (09:51)
[2019-03-14] MEDS: levothyroxine 50 mcg Tablet PO (09:52)
--- NOTE | 2019-03-14 11:21 | PC.NURSE ---
0820 From Chef Passenger Vessel Sheath Pulled per doctor's order to pull sheath now. Explained procedure to pt. Right groin sheath intact and attached to pressure bag. Femoral pulse is felt. Firm and direct manual pressure applied on right femoral artery groin. Homeostasis achieved for 20 mins. Pt tolerated procedure well. No bleeding, swelling or Hematoma noted. Neurovascular checks monitored. VS monitored per protocol. Activity restrictions discuss to pt post cath.
[2019-03-14] MEDS: TRAMadol 50 mg Tablet PO ×2 (11:36→22:05)
--- NOTE | 2019-03-14 11:57 | PC.NURSE ---
Off Unit to laboratory animal caretaker informed that pt had a small amount of oatmeal around 9:30.
--- NOTE | 2019-03-14 13:16 | PM.PN ---
Subjective Subjective: Interval history: Sarika reports she is breathing easier. She just underwent an angiogram. Full report is pending. Medications: Reviewed: Yes Vitals/I&O/Wt Last Vital Signs Temp 98.0 F 03/14/19 08:10 Pulse 94 03/14/19 08:55 Resp 18 03/14/19 08:48 BP 122/48 03/14/19 09:50 Pulse Ox 99 03/14/19 08:48 03/13/19 03/14/19 03/14/19 22:59 06:59 14:59 Intake Total 220 / 1350 Output Total 3200 / 4200 Balance 220 / 350 -3200 / -2850 Weight last 48 hrs Weight 113.568 kg Weight 113.568 kg Physical Exam Narrative: EXAM NARRATIVE: General exam is no apparent distress Cardiovascular regular rate and rhythm, borderline tachycardia Lungs a few expiratory wheezes Abdomen is soft, positive bowel sounds Extremities trace edema A&P Assessment and plan (1) Respiratory failure: Extubated 4 days ago. Respiratory failure has resolved Status: Acute Qualifiers: Chronicity: acute on chronic Respiratory failure complication: hypoxia Qualified Code(s): J96.21 - Acute and chronic respiratory failure with hypoxia Code(s): J96.90 - Respiratory failure, unspecified, unspecified whether with hypoxia or hypercapnia (2) Obesity: Improved control. Status: Acute Code(s): E66.9 - Obesity, unspecified (3) Acute systolic heart failure: Compensation improving. Continues to diurese well. Angiogram completed today. Results pending. From talking to family further angiogram evaluation versus bypass is possible. Status: Acute Code(s): I50.21 - Acute systolic (congestive) heart failure (4) COPD with acute exacerbation: Improved. She has transitioned to prednisone orally. She is on pulmonary toilet. Markedly improved Status: Acute Code(s): J44.1 - Chronic obstructive pulmonary disease with (acute) exacerbation (5) Hypertension: Blood pressure controlled on losartan, hydralazine, metoprolol Status: Acute Qualifiers: Hypertension type: essential hypertension Qualified Code(s): I10 - Essential (primary) hypertension Code(s): I10 - Essential (primary) hypertension (6) Coronary artery disease: With elevated troponin, reduced ejection fraction cardiology is following . Angiogram performed today Status: Acute Code(s): I25.10 - Atherosclerotic heart disease of [place] coronary artery without angina pectoris (7) NSTEMI (non-ST elevated myocardial infarction): Diminished EF from prior. Angiogram today demonstrated atherosclerotic disease, full report is pending. Cardiology deciding whether angiographically this can be improved upon or whether other surgical options need to be considered. Status: Acute Code(s): I21.4 - Non-ST elevation (NSTEMI) myocardial infarction (8) GERD (gastroesophageal reflux disease): Status: Acute Code(s): K21.9 - Gastro-esophageal reflux disease without esophagitis (9) Hypokalemia: Resolved Status: Acute Code(s): E87.6 - Hypokalemia Attestations Medical Necessity Statement*: Needs continued hospitalization for evaluation of coronary disease, severe reduction in EF, and medical adjustment of medication for heart failure Coding Level of Care Code Acute Collections Associate for [facility] Diagnoses Respiratory failure J96.21 Chronicity: acute on chronic Respiratory failure complication: hypoxia Obesity E66.9 Acute systolic heart failure I50.21 COPD with acute exacerbation J44.1 Hypertension I10 Hypertension type: essential hypertension Coronary artery disease I25.10 NSTEMI (non-ST elevated myocardial infarction) I21.4 GERD (gastroesophageal reflux disease) K21.9 Hypokalemia E87.6
--- NOTE | 2019-03-14 21:30 | PC.NURSE ---
0800 From lab courier received pt from lab courier. No Hematoma to right groin site. bilateral foot is cool. Right foot is cooler, pale. Doppled dorsalis pedis and posterior tibial pulses. Pt denies any pain at this time.
--- NOTE | 2019-03-14 21:34 | PC.NURSE ---
Pt reports cramping and feels her right foot is going to sleep. Pt has been sitting on the edge of the bed with her legs dangling to floor for an hour. Pt stated her right foot feels like its going to fall asleep and she complains of cramping. Noted some mottling on her right toes. Assisted pt back to bed. once her feet was resting in bed she reported the cramping and numbness is getting better. R Dorsalis pedis has been doppled but could not find the arterial soundwave. R posterior tibial has good dopplerable pulse. right foot is cooler and paler than left foot. Her BP is ranging from 90S to 80s systolic. Look sleepy and tired. HR- 90s to 98s. SR. Instructed pt to notify nurse immediately for any increasing numbness and pain on her right leg. pt verbalizes understanding. Dgtr at bedisde. call light within reach. notified. Dr. Ruiz tel order to hold metoprolol, check bp manually and hold lovenox. to check leg and VS q30 mins and call for decreasing bp below 80s or any change on pt condition. Informed night nurse sonny regarding the plan.
--- NOTE | 2019-03-14 21:43 | PC.NURSE ---
1900 TR band off No hematoma, swelling or bleeding noted. cleanse and Dressing applied to area. radial pulse is dopplerable. Instructed pt on activity restrictions to right arm and to notify nurse nga for any bleeding, unusual pain or numbness.
[2019-03-14] MEDS: atorvastatin 40 mg Tablet 20 MG PO (22:03)
--- NOTE | 2019-03-14 22:44 | PC.NURSE ---
At 1999 assessment with Eduard RN patient Right Lower extremity was cooler than the Left extremity. Dorsalis pedis pulse was doppled in both Right and Left Feet and Tibial pulse was Doppled. No hematoma noted to Right Groin or Right wrist. Both dressings were clean dry and intact. Will continue to monitor.
[2019-03-15] VITALS (9 sets, daily range): BP systolic 113–128; BP diastolic 55–80; PULSE 18–98; RESP 16–18; TEMP 36.4–36.6; O2SAT 96–100
--- NOTE | 2019-03-15 00:04 | PC.NURSE ---
Patient R leg DP pulse was dopped and no hematoma noted to R groin or R wrist. R leg is the Same temperature as the Left leg.
[2019-03-15] MEDS: ipratropium-albuterol 3 mL Neb INHALATION ×3 (03:18→13:02)
[2019-03-15 05:07] LABS: Basophils # 0.1 10^3/uL (0.0-0.1); Basophils % 0.3 %; Eosinophils # 0.1 10^3/uL (0.0-0.8); Eosinophils % 0.3 %; Hematocrit 39.5 % (37.0-47.0); Hemoglobin 11.9 g/dL (11.5-15.3); Lymphocytes # 2.5 10^3/uL (0.8-4.8); Lymphocytes % 16.3 %; Mean Corpuscular HGB Conc 30.1 g/dL (30.0-36.0); Mean Corpuscular Hemoglobin 26.7 pg (28.0-34.0); Mean Corpuscular Volume 88.8 fL (81-99); Mean Platelet Volume 11.1 fL (7.4-10.4); Monocytes # 1.4 10^3/uL (0.2-0.9); Monocytes % 9.2 %; Neutrophils # 10.4 10^3/uL (1.8-7.7); Neutrophils % 69.7 %; Nucleated Red Blood Cells % 0 %; Platelet Count 216 10^3/cmm (130-400); Red Blood Count 4.45 10^6/uL (4.1-5.3); Red Cell Distribution Width 13.7 % (12.1-15.1)
[2019-03-15 05:24] LABS: Anion Gap 13.5 (5-19); Blood Urea Nitrogen 25 mg/dL (8-23); Calcium 9.6 mg/Dl (8.8-10.2); Carbon Dioxide 29 mmol/L (22-29); Chloride 102 mmol/L (98-107); Glucose 104 mg/dL (74-106); Potassium 4.5 mmol/L (3.5-5.1); Sodium 140 mmol/L (136-145)
--- NOTE | 2019-03-15 08:00 | PC.NURSE ---
Pt rounding and neurovascular checked with night nurse Ana Pt right groin has no hematoma, bleeding, swelling or s/s infection. Right leg and foot warm. With trace to 1+ pitting edema. Posterior tibial and dorsalis pedis were doppled. with good soundwave blood flow. pt denies any pain on her right leg or foot. she does have chronic back pain which is relieved with Tramadol PRN ordered.
--- NOTE | 2019-03-15 08:08 | PC.NURSE ---
doppled pulses at dorsalis pedis and at the ankle. pulses strong and consistent. patient tolerated it very well.
[2019-03-15] MEDS: budesonide 0.5 mg/2 mL Neb INHALATION (08:24)
[2019-03-15] MEDS: TRAMadol 50 mg Tablet PO ×2 (08:33→16:45)
--- NOTE | 2019-03-15 09:04 | PC.NURSE ---
Complete bed linen change
--- NOTE | 2019-03-15 09:28 | P.PN_ITS ---
Subjective Subjective: Interval history: Patient had a cardiac authorization yesterday. She she was found to have venous graft from the innominate artery to the obtuse marginal and the free ROPER graft from the venous graft to the LAD. 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 She had a high-grade lesion in the proximal left main artery. 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 Her aorta was found to be extensively calcified. Because of the complexity of these lesions, it was decided not to do any intervention yesterday. Patient is currently doing okay with no chest pain or shortness of breath. Medications: Medication Review Details: The Plavix was held yesterday hoping that the patient may require surgery. Vitals/I&O/Wt Last Vital Signs Temp 97.6 F 03/15/19 05:17 Pulse 97 03/15/19 08:25 Resp 16 03/15/19 08:25 BP 125/80 03/15/19 05:17 Pulse Ox 96 03/15/19 08:25 03/14/19 03/15/19 03/15/19 22:59 06:59 14:59 Intake Total 274 / 424 360 / 360 Output Total 800 / 2800 400 / 3200 Balance -526 / -2376 -400 / -2776 360 / 360 Weight last 48 hrs Weight 179 lb 8 oz Weight 250 lb 6 oz Physical Exam Const: COMMON NORMALS: oriented x3, alert and well nourished GENERAL APPEARANCE: cooperative, well developed and well hydrated; not in distress HENMT: MOUTH: lip normal; no other (ulcers or bleeding) TEETH & GINGIVA: no other (bleeding observed and inflammation present) Eye: COMMON NORMALS: conjunctivae normal CONJUNCTIVA: Yes conjunctivae normal SCLERA: sclerae normal Neck/C-Spine: COMMON NORMALS: thyroid normal THYROID: thyroid normal CAROTIDS: Yes normal carotid upstroke (and runoff) Chest: COMMONS NORMALS: inspection of chest normal Resp: EFFORT & INSPECTION: Yes symmetric chest movement and No uses accessory muscles OTHER: Sounds are heard bilaterally with scattered wheezes and crackles. Diminished intensity of breath sounds the bases. Cardio: COMMON NORMALS: regular rate and regular rhythm PALPATION: no heave, no palpable S3 and no thrill RATE: regular rate RHYTHM: regular rhythm BRUITS: no abdominal aortic bruits PERIPHERAL PULSES: femoral pulses present, posterior tibial pulses present and dorsalis pedis pulses present GI: AUSCULTATION: Yes normoactive bowel sounds and No abdominal bruit PALPATION: No tender, No hepatomegaly, No splenomegaly and No mass Back/Pelvis: GENERAL BACK: No swelling and No other (joint deformities) THORACIC SPINE/UPPER BACK: No kyphosis present LUMBAR SPINE/LOWER BACK: No tiff mbar scoliosis present Extremity: NARRATIVE EXTREMITY EXAM: Patient has no hematoma or bleeding from the arterial access site in the right groin or at the right radial artery GENERAL: No cyanosis Neuro: COMMON NORMALS: oriented x3 SENSORIUM/ORIENTATION: Yes alert MOTOR EXAM: No tremor Psych: MOOD & AFFECT: Yes other (Normal mood and affect) Skin: COMMON NORMALS: skin turgor normal GENERAL SKIN EXAM: turgor normal, skin not dry and no erythema RASHES: rash noted NAILS: normal, no clubbing, not discolored and no other (cyanosis) A&P Assessment and plan (1) NSTEMI (non-ST elevated myocardial infarction): Patient is currently asymptomatic. May continue the baby aspirin and Plavix. The angiogram findings are discussed with the patient. In view of the extensive calcification in the aorta and previous difficulty with the coronary artery bypass surgery, patient may not be an ideal candidate for a redo surgery. Complex PCI of the left main lesion is the other option. Status: Acute Code(s): I21.4 - Non-ST elevation (NSTEMI) myocardial infarction (2) Hypertension: The blood pressure seems to be getting under control. May continue on the current medications. Status: Acute Qualifiers: Hypertension type: essential hypertension Qualified Code(s): I10 - Essential (primary) hypertension Code(s): I10 - Essential (primary) hypertension (3) Coronary artery disease: History of coronary disease and coronary artery bypass surgery as mentione d above. The cardiac authorization findings are discussed with the patient and her family. In view of the complicated non-ST elevation myocardial infarction, patient may benefit from a revascularization procedure. In view of the complexity of the coronary lesion and multiple other comorbid factors, patient carries a higher risk. For this reason, it would be appropriate to do the procedure in a facility where high risk coronary intervention can be performed. Case was discussed with Dr. Zavala and Dr. Sterling. They agreed with this plan. I contacted Dr. Erazo at the [facility]. Dr. Erazo accepted her transfer for further management. Status: Acute Qualifiers: Associated angina: without angina Coronary Disease-Associated Artery/Lesion type: bypass graft [place] vs. transplanted heart: [place] heart Qualified Code(s): I25.810 - Atherosclerosis of coronary artery bypass graft(s) without angina pectoris Code(s): I25.10 - Atherosclerotic heart disease of [place] coronary artery without angina pectoris (4) COPD with acute exacerbation: Patient is on bronchodilator therapy and antibiotics. She still has significant wheezing bilaterally. Her white cell count also is elevated. She has significant improvement of the symptoms. May continue on the current management. Status: Acute Code(s): J44.1 - Chronic obstructive pulmonary disease with (acute) exacerbation (5) Acute systolic heart failure: Patient's heart failure seems to be fairly compensated. She is somewhat behind in fluid. I may hold off on the IV Lasix at this time. May start her on p.o. Lasix from tomorrow onwards Status: Acute Code(s): I50.21 - Acute systolic (congestive) heart failure (6) Hypokalemia: Currently the patient is normokalemic. May continue on the current medications. Status: Acute Code(s): E87.6 - Hypokalemia Attestations Medical Necessity Statement*: Possible transfer to the [facility] today Coding Level of Care Code Acute [facility] Prepared[facility] Ex[facility] Problem Focused Diagnoses NSTEMI (non-ST elevated myocardial infarction) I21.4 Hypertension I10 Hypertension type: essential hypertension Coronary artery disease I25.810 Associated angina: without angina Coronary Disease-Associated Artery/Lesion type: bypass graft [place] vs. transplanted heart: [place] heart COPD with acute exacerbation J44.1 Acute systolic heart failure I50.21 Hypokalemia E87.6 Time Spent (min) 40
[2019-03-15] MEDS: guaiFENesin 600 mg Tablet PO (10:55)
[2019-03-15] MEDS: aspirin 81 mg EC Tablet PO (10:55)
[2019-03-15] MEDS: losartan 50 mg Tablet 25 MG PO (10:55)
[2019-03-15] MEDS: famotidine 20 mg Tablet PO (10:55)
[2019-03-15] MEDS: predniSONE 20 mg Tablet 40 MG PO (10:56)
[2019-03-15] MEDS: levothyroxine 50 mcg Tablet PO (10:57)
[2019-03-15] MEDS: levoFLOXacin 750 mg Tablet PO (10:58)
[2019-03-15] MEDS: clopidogrel 75 mg Tablet PO (10:59)
[2019-03-15] MEDS: metoprolol tartrate 25 mg Tablet PO (10:59)
--- NOTE | 2019-03-15 14:59 | PM.TDS ---
Transfer Summary Providers Date of Admission: 03/09/19 07:13 Date of Discharge: 03/15/19 Attending Provider at Admission: Charles Saba MD Attending Provider at Transfer: Jorden Resendiz MD Primary Care Provider: Karla Mendez Anticipated Date of Transfer: Anticipated date of transfer: 03/15/19 Receiving Facility & Provider: Receiving Provider: [] Receiving facility: [] Diagnoses at Discharge Discharge Diagnosis (1) NSTEMI (non-ST elevated myocardial infarction): Status: Acute Problem details: Patient is known to have coronary artery disease and coronary artery bypass surgery. She had a two-vessel coronary bypass surgery in March [address] Stovall at the [facility] in [place]. At that time, she had a ROPER to the LAD and venous graft from the ROPER to the obtuse marginal artery. (2) Hypertension: Status: Acute Problem details: Patient has a history of longstanding hypertension Qualifiers: Hypertension type: essential hypertension Qualified Code(s): I10 - Essential (primary) hypertension (3) Coronary artery disease: Status: Acute Qualifiers: Associated angina: without angina Coronary Disease-Associated Artery/Lesion type: bypass graft [place] vs. transplanted heart: [place] heart Qualified Code(s): I25.810 - Atherosclerosis of coronary artery bypass graft(s) without angina pectoris (4) COPD with acute exacerbation: Status: Acute (5) Acute systolic heart failure: Status: Acute Problem details: LV ejection fraction around 30% 1. This is a technically very difficult and limited study. 2. Moderately to severely decreased left ventricular systolic function. Left ventricular ejection fraction is estimated at 30 %. Severe hypokinesis of mid to apical anteroseptal, inferoseptal, inferolateral, anterolateral and apical leos. 3. Thickened and calcified aortic valve. Mild aortic valve stenosis, mean gradient 9.2 mmHg, ANDRIY 1.9 cm squared. Mild aortic valve regurgitation. 4. Moderately increased left atrial size. 5. Pulmonary artery pressure estimated at 36 mmHg. 6. When compared to previous echocardiogram dated 03/25/2018, left ventricular systolic function has decreased. 7. These findings may represent Takotsubo cardiomyopathy if coronary artery disease is ruled out. Evaluation fraction was 55% in March 2018. (6) Hypokalemia: Status: Acute Reason for Visit Reason for Visit: Reason For Visit: Chf, Intubated Hospital Course Discharge Summary: This is a 73-year-old female with a past medical history of COPD, coronary artery disease status post CABG times 11 March 2009 underwent ROPER to LAD and saphenous vein graft from ROPER to obtuse marginal artery, systolic heart failure, carotid artery disease, hypothyroidism, hypertension, GERD who presented to [facility] on March 09, 2019, as a transfer from [facility] for acute respiratory failure, was intubated on arrival. Patient was admitted to the ICU for acute hypoxic hypercarbic respiratory failure secondary to COPD, pneumonia, systolic CHF exacerbation. Patient was diuresed with IV Lasix, received steroids, broad-spectrum antibiotics, clinically improved, was extubated successfully, onto nasal cannula, and transitioned to cardiac stepdown unit. On admission patient was found to have elevated troponins, as high as 326, NSTEMI type I versus type II, she underwent an echocardiogram that showed an ejection fraction of 30% with severe hypokinesis of the mid to apical segments with relative sparing of the basal segments more so in the lateral wall. This was medically managed initially aspirin, Plavix, statin, Lovenox, losartan, metoprolol, and once patient was clinically stable she had a coronary angiogram. Patient was found to have venous graft from the innominate artery to obtuse marginal and the free ROPER graft from the venous graft to the LAD. 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 She had high-grade lesion in the proximal left main artery. The right coronary artery was chronically occluded. Her aorta was found to be extensively calcified. Because of the complexity of these lesions there was no intervention done, and the recommendation was made for transfer to higher level center for surgical intervention. In terms of her respiratory status, patient is clinically doing well, on oral Levaquin, 40 mg oral prednisone, Lasix 40 mg twice daily, still on 2 L oxygen, no significant shortness of breath, and ambulating without assistance. Physical Exam Const: COMMON NORMALS: no apparent distress and oriented x3 HENMT: COMMON NORMALS: normocephalic HEAD & SCALP: normocephalic Eye: COMMON NORMALS: PERRL PUPIL: Yes PERRL Neck/C-Spine: COMMON NORMALS: no JVD Lymph: LYMPHATIC: no lymphadenopathy noted Resp: COMMON NORMALS: normal respiratory effort, no retractions, no use of accessory muscles and clear to auscultation bilaterally AUSCULTATION: clear to auscultation bilaterally Cardio: COMMON NORMALS: no JVD, regular rate, regular rhythm, S1 normal heart sound, S2 normal heart sound, no gallops, no clicks, no murmurs and peripheral pulses 2+ throughout RATE: regular rate RHYTHM: regular rhythm HEART SOUNDS: S1 normal and S2 normal PERIPHERAL PULSES: pulses 2+ throughout GI: COMMON NORMALS: normal to inspection, nondistended, normoactive bowel sounds, soft to palpation, non-tender and no hepatosplenomegaly PALPATION: Yes soft and Yes no hepatosplenomegaly Extremity: COMMON NORMALS: normal to inspection Neuro: COMMON NORMALS: oriented x3, CN's II-XII intact bilaterally and moves all extremities Psych: COMMON NORMALS: mental status grossly normal TS Data Data Completed and Pending: Completed Studies During Hospitalization Category Date Time Status TRIAGE REGISTERED NURSE request for service Routin e Exams 03/14/19 06:24 Completed TRIAGE REGISTERED NURSE request for service Routin e Exams 03/14/19 07:00 Completed XR chest 1V efren ble [id number] Routine Exams 03/10/19 04:00 Completed XR chest 1V efren ble [id number] Routine Exams 03/11/19 08:32 Completed Labs from last 24 hours 03/15/19 03/15/19 04:28 04:28 WBC 15.0 H RBC 4.45 Hgb 11.9 Hct 39.5 MCV 88.8 MCH 26.7 L MCHC 30.1 RDW 13.7 Plt Count 216 MPV 11.1 H Neut % (Auto) 69.7 Lymph % (Auto) 16.3 [place] % (Auto) 9.2 Eos % (Auto) 0.3 Baso % (Auto) 0.3 Neut # (Auto) 10.4 H Lymph # (Auto) 2.5 [place] # (Auto) 1.4 H Eos # (Auto) 0.1 Baso # (Auto) 0.1 Nucleated RBC % (a uto) 0 Nucleated RBCs # 0.0 Sodium 140 Potassium 4.5 Chloride 102 Carbon Dioxide 29 Anion Gap 13.5 BUN 25 H Creatinine 0.7 Glucose 104 Calcium 9.6 Vitals: Last Vital Signs Temp 97.6 F 03/15/19 05:17 Pulse 90 03/15/19 13:10 Resp 16 03/15/19 13:06 BP 113/55 03/15/19 10:55 Pulse Ox 98 03/15/19 13:06 TS Medications Medications Home Medications albuterol sulfate 90 mcg/actuation aerosol inhaler 2 puff INHALATION Q6H PRN 03/09/19 [History Confirmed 03/11/19] aspirin 325 mg tablet 325 mg PO DAILY tab 03/09/19 [History Confirmed 03/11/19] citalopram 10 mg tablet 10 mg PO BEDTIME 03/09/19 [History Confirmed 03/11/19] fluticasone propionate 50 mcg/actuation nasal spray,suspension 1 spray INTRANASAL BID PRN 03/09/19 [History Confirmed 03/11/19] furosemide 40 mg tablet 20 mg PO BID 03/09/19 [History Confirmed 03/11/19] losartan 25 mg tablet 25 mg PO BID 03/09/19 [History Confirmed 03/11/19] metoprolol tartrate 25 mg tablet 25 mg PO DAILY 03/09/19 [History Confirmed 03/11/19] mirabegron 50 mg tablet,extended release 24 hr 50 mg PO BEDTIME 03/09/19 [History Confirmed 03/11/19] nitroglycerin 0.4 mg sublingual tablet 0.4 mg SUBLINGUAL Q5M PRN 03/09/19 [History Confirmed 03/11/19] pantoprazole 40 mg tablet,delayed release 40 mg PO DAILY 03/09/19 [History Confirmed 03/11/19] potassium chloride 10 mEq capsule,extended release 20 meq PO BID cap 03/09/19 [History Confirmed 03/11/19] rosuvastatin 5 mg tablet 5 mg PO BEDTIME 03/09/19 [History Confirmed 03/11/19] tramadol 50 mg tablet 100 mg PO BID PRN 03/09/19 [History Confirmed 03/11/19] trazodone 100 mg tablet 100 mg PO BEDTIME 03/09/19 [History Confirmed 03/11/19] umeclidinium 62.5 mcg-vilanterol 25 mcg/actuation powdr for inhalation 1 inh INHALATION Q24H 03/09/19 [History Confirmed 03/11/19] levothyroxine 50 mcg PO DAILY 03/11/19 [History Confirmed 03/11/19] Active Medications Acetaminophen (Tylenol) 650 mg PO Q4H PRN PRN Reason: MILD PAIN OR INCREASE TEMP Last Admin: 03/12/19 02:58 Dose: 650 mg Documented by: Albuterol/Ipratropium (Duoneb) 3 ml INHALATION Q4H.RESPIRATORY [facility] Last Admin: 03/15/19 13:02 Dose: 3 ml Documented by: Aspirin (Aspirin Ec) 81 mg PO DAILY [facility] Last Admin: 03/15/19 10:55 Dose: 81 mg Documented by: Atorvastatin Calcium (Lipitor) 20 mg PO BEDTIME [facility] Last Admin: 03/14/19 22:03 Dose: 20 mg Documented by: Budesonide (Pulmicort) 0.5 mg INHALATION BID.RESPIRATORY [facility] Last Admin: 03/15/19 08:24 Dose: 0.5 mg Documented by: Clopidogrel Bisulfate (Plavix) 75 mg PO DAILY [facility] Last Admin: 03/15/19 10:59 Dose: 75 mg Documented by: Enoxaparin Sodium (Lovenox) 40 mg SUBCUT Q24H [facility] Last Admin: 03/14/19 19:40 Dose: Not Given Documented by: Famotidine (Pepcid Tab) 20 mg PO BID [facility] Last Admin: 03/15/19 10:55 Dose: 20 mg Documented by: Furosemide (Lasix) 40 mg PO BID@08,16 [facility] Last Admin: 03/15/19 12:15 Dose: Not Given Documented by: Guaifenesin (Mucinex) 600 mg PO BID [facility] Last Admin: 03/15/19 10:55 Dose: 600 mg Documented by: Hydralazine HCl (Apresoline) 10 mg IVP Q4H PRN PRN Reason: HYPERTENSION Last Admin: 03/10/19 20:12 Dose: 10 mg Documented by: Hydralazine HCl (Apresoline) 10 mg IVP Q15M PRN PRN Reason: HYPERTENSION Last Admin: 03/11/19 05:12 Dose: 10 mg Documented by: Levofloxacin (Levaquin) 750 mg PO DAILY@0600 [facility]; Protocol Last Admin: 03/15/19 10:58 Dose: 750 mg Documented by: Levothyroxine Sodium (Synthroid) 50 mcg PO DAILY [facility] Last Admin: 03/15/19 10:57 Dose: 50 mcg Documented by: Losartan Potassium (Cozaar) 25 mg PO DAILY [facility] Last Admin: 03/15/19 10:55 Dose: 25 mg Documented by: Metoprolol Tartrate (Lopressor) 25 mg PO BID [facility] Last Admin: 03/15/19 10:59 Dose: 25 mg Documented by: Ondansetron HCl (Zofran) 4 mg IVP Q6H PRN PRN Reason: NAUSEA AND VOMITING Last Admin: 03/13/19 01:52 Dose: 4 mg Documented by: Potassium Chloride (Klor-Con 10) 40 meq PO BID [facility] Last Admin: 03/15/19 12:15 Dose: Not Given Documented by: Prednisone (Prednisone) 40 mg PO DAILY [facility] Last Admin: 03/15/19 10:56 Dose: 40 mg Documented by: Sodium Chloride (Sodium Chloride 0.9 % (Flush)) 2 ml IV PIID [facility] Last Admin: 03/15/19 06:12 Dose: Not Given Documented by: Tramadol HCl (Ultram) 50 mg PO Q6H PRN PRN Reason: MODERATE PAIN Last Admin: 03/15/19 08:33 Dose: 50 mg Documented by: Discharge Plan Discharge Patient Disposition: Home, Self-Care Condition: Stable Prescriptions: No Action losartan 25 mg tablet 25 mg PO BID RF: 0 citalopram [Celexa] 10 mg tablet 10 mg PO BEDTIME RF: 0 albuterol sulfate [ProAir HFA] 90 mcg/actuation HFA aerosol inhaler 2 puff INHALATION Q6H PRN (Reason: Shortness Of Breath) RF: 0 fluticasone propionate [Flonase Allergy Relief] 50 mcg/actuation spray,suspension 1 spray INTRANASAL BID PRN (Reason: Shortness Of Breath) RF: 0 Myrbetriq 50 mg tablet extended release 24 hr 50 mg PO BEDTIME RF: 0 potassium chloride 10 mEq capsule, extended release 20 meq PO BID RF: 0 trazodone 100 mg tablet 100 mg PO BEDTIME RF: 0 aspirin 325 mg tablet 325 mg PO DAILY RF: 0 furosemide [Lasix] 40 mg tablet 20 mg PO BID RF: 0 nitroglycerin 0.4 mg tablet, sublingual 0.4 mg SUBLINGUAL Q5M PRN (Reason: Chest Pain) RF: 0 rosuvastatin 5 mg tablet 5 mg PO BEDTIME RF: 0 umeclidinium-vilanterol 62.5-25 mcg/actuation blister with device 1 inh INHALATION Q24H RF: 0 metoprolol tartrate 25 mg tablet 25 mg PO DAILY RF: 0 pantoprazole 40 mg tablet,delayed release (DR/EC) 40 mg PO DAILY RF: 0 tramadol 50 mg tablet 100 mg PO BID PRN (Reason: Pain) RF: 0 levothyroxine 50 mcg tablet 50 mcg PO DAILY RF: 0 Discharge Orders: Discharge Order (Routine); Ordered 03/15/19 Ordered By: Jorden Resendiz Discharge Diet: Advance as tolerated Discharge Activity: Resume usual activity Transfer Attestations Time Spent in Transfer Care*: greater than 30 min Quality Metrics Clinical Quality Measures: During this hospital stay, did patient experience: None Coding Level of Care Code Acute Precast Worker for Chg Fwd Diagnoses NSTEMI (non-ST elevated myocardial infarction) I21.4 Hypertension I10 Hypertension type: essential hypertension Coronary artery disease I25.810 Associated angina: without angina Coronary Disease-Associated Artery/Lesion type: bypass graft [place] vs. transplanted heart: [place] heart COPD with acute exacerbation J44.1 Acute systolic heart failure I50.21 Hypokalemia E87.6
--- NOTE | 2019-03-15 16:30 | PC.NURSE ---
Report called to [facility] for transfer Talked to Elder Hearn at receiving facility regarding transfer orders and mode of transportation. Packet ready. Provided them with our # for any more questions.
[2019-03-15] MEDS: sodium chloride 0.9 % (flush) syringe 10 mL 2 ML IV (16:44)
--- NOTE | 2019-03-15 18:27 | PC.NURSE ---
[facility] ambulance transport first responders in room to transfer pt to [facility] via stretcher.
== END 2019-03-15 18:31 | disposition short-term general hospital (02) | DRG 208 ==
LOC: ICU 16:44 → CSU 03-13 10:02
PROVIDERS: Internal Medicine Cardiovascular Disease; Admitting Provider Internal Medicine; Visit Provider Family Medicine
PROC: 4A023N7 Measurement of Cardiac Sampling and Pressure, Left Heart, Percutaneous Approach (ICD-10-PCS; principal; 2019-03-14 07:00)
DX: J96.22 Acute and chronic respiratory failure with hypercapnia (principal); I50.21 Acute systolic (congestive) heart failure; I21.4 Non-ST elevation (NSTEMI) myocardial infarction; J18.9 Pneumonia, unspecified organism; I25.810 Atherosclerosis of coronary artery bypass graft(s) without angina pectoris; J44.1 Chronic obstructive pulmonary disease with (acute) exacerbation; J44.0 Chronic obstructive pulmonary disease with (acute) lower respiratory infection; J96.21 Acute and chronic respiratory failure with hypoxia; Z95.1 Presence of aortocoronary bypass graft; E87.6 Hypokalemia; E03.9 Hypothyroidism, unspecified; K21.9 Gastro-esophageal reflux disease without esophagitis; Z79.82 Long term (current) use of aspirin; E66.9 Obesity, unspecified; Z68.30 Body mass index [BMI] 30.0-30.9, adult; Z87.891 Personal history of nicotine dependence; E78.5 Hyperlipidemia, unspecified
CPT/HCPCS: 36592; 36600; 71045; 80048; 82803; 83735; 84443; 84484; 85025; 87040; 87070; 87205; 93005; 93306; 93459; 94002; 94003; 94640; 94799; 96372; 96375; 97116; 97161; 97530; A4570; C1769; C1887; C1894; J0360; J1644; J1650; J1940; J1956; J2001; J2250; J2405; J2704; J2930; J3010; J3480; J3490; J7030; J7512; J7626; Q0163; Q9967

== ENCOUNTER 2019-04-10 19:44 | Emergency (ER) | payer MEDICARE, MEDICAID, SELFPAY ==
[2019-04-10 19:48] VITALS: BP 222/93; PULSE 120; RESP 20; O2SAT 94; BMI 44.4
[2019-04-10 20:10] VITALS: BP 188/68; PULSE 116; RESP 18; O2SAT 93
--- NOTE | 2019-04-10 20:10 | ED_ITS ---
Entered by Ana Noonan, acting as scribe for Steve Ledesma DO HPI - General Adult General: Chief complaint: General Medical Stated complaint: HYPERTENSION Time Seen by Provider: 04/10/19 19:56 Source: patient and EMS Mode of arrival: ambulatory History of Present Illness: HPI narrative: 74 y/o male presents to the ED with complaint of HTN. Pt states she has missed two of her normal three blood pressure medications in the past week. She has been in a rehab facility since her procedure. She has had difficulty maintaining her pressures since then. Pt was recently admitted here and had a stent placed. She denies LEE; reports just not feeling well . complaint: HTN Onset (ago): week(s) (1) Severity: similar to prior episodes Pain Consistency: intermittent Associated symptoms: Deny chest pain, confusion, dyspnea, headache(s), nausea, rash, palpitations or vomiting Review of Systems Const: Denies: fever or chills Eyes: Denies: change in vision or blurry vision ENMT: Denies: painful swallowing, swelling of lips/tongue, post nasal drip or facial/sinus pain Card: Denies: chest pain, palpitations, shortness of breath on exertion or shortness of breath when lying down Resp: Denies: shortness of breath, productive cough, non-productive cough or wheezing GI: Denies: abdominal pain, nausea, vomiting, rectal pain, blood in stool or black tarry stool : Denies: painful urination, urinary frequency, urinary urgency or blood in urine Musc: Denies: neck pain, back pain, redness or joint warmth Skin/Breast: Denies: rash, itching or redness Neuro: Denies: headache, dizziness, vertigo, confusion or seizure-like acti vity Psych: Denies: anxiety PFSH ED PFSH: Statuses (acute, chronic, etc) shown below reflect problem list status as previously entered and may not be historically accurate Social History Smoking and tobacco status: former smoker Alcohol intake: never Physical Exam Const: GENERAL APPEARANCE: well developed ORIENTATION/CONSCIOUSNESS: Yes oriented to person, Yes oriented to place and Yes oriented to time HENMT: COMMON NORMALS: normocephalic, external ears normal and external nose normal HEAD & SCALP: normocephalic; no scalp tenderness FACE & SINUS: normal facial exam NOSE: external nose normal and no nasal discharge EXTERNAL EAR: Yes external ears normal M OUTH: tongue normal TEETH & GINGIVA: no abnormal tooth and associated gingiva THROAT: posterior oropharynx normal; no peritonsillar mass Eye: COMMON NORMALS: PERRL, EOMs intact bilaterally and conjunctivae normal EYELID: eyelids normal CONJUNCTIVA: Yes conjunctivae normal PUPIL: Yes PERRL Neck/C-Spine: GENERAL: No tracheal deviation Chest: COMMONS NORMALS: inspection of chest normal CHEST: No tenderness Resp: COMMON NORMALS: clear to auscultation bilaterally EFFORT & INSPECTION: No tachypneic, No respiratory distress, No retractions, No uses accessory muscles and No tracheal deviation AUSCULTATION: clear to auscultation bilaterally, no rhonchi, no wheezes and lung sounds not diminished Cardio: HEART SOUNDS: murmur (2) systolic PERIPHERAL PULSES: radial pulses present GI: INSPECTION: No abdominal distension AUSCULTATION: No hyperactive bowel sounds and No hypoactive bowel sounds PALPATION: No guarding and No rigid PERCUSSION: no dullness to percussion and no tympanic to percussion : COMMON NORMALS: Yes no CVA tenderness BLADDER/KIDNEY EXAM: Yes no CVA tenderness Back/Pelvis: COMMON NORMALS: no CVA tenderness Extremity: GENERAL: Yes edema (2+ bilaterally) Neuro: SENSORIUM/ORIENTATION: Yes oriented to person, Yes oriented to place and Yes oriented to time Psych: COMMON NORMALS: mental status grossly normal Skin: COMMON NORMALS: no rashes or lesions noted GENERAL SKIN EXAM: no rashes or lesions noted Course ED course: 74-year-old female with hypertension. She has not been getting her amlodipine, or metoprolol evidently, although she has been getting Coreg in place of the metoprolol. Pressure was quite high in the ER. We gave her an amlodipine, and 5 mg of IV metoprolol. She did require 1 dose of labetalol, but pressure improved significantly. After discharge her pressure was 137/60. Labs are benign. Vital Signs: Vital signs: Vital Signs Pulse Rate 93 04/11/19 00:37 Respiratory Rate 18 04/11/19 00:37 Blood Pressure 137/60 04/11/19 00:37 Pulse Oximetry 94 04/11/19 00:[address] [facility] - General Adult Lab Data: Labs: Lab Results 04/10/19 04/10/19 04/10/19 Range/Units 20:33 20:33 20:33 WBC 7.6 (4.0-10.0) 10^3/ uL RBC 4.22 (4.1-5.3) 10^6/u L Hgb 11.4 L (11.5-15.3) g/dL Hct 37.9 (37.0-47.0) % MCV 89.8 (81-99) fL MCH 27.0 L (28.0-34.0) pg MCHC 30.1 (30.0-36.0) g/dL RDW 17.2 H (12.1-15.1) % Plt Count 408 H (130-400) 10^3/c mm MPV 9.6 (7.4-10.4) fL Neut % (Auto) 70.4 % Lymph % (Auto) 12.5 % [place] % (Auto) 9.3 % Eos % (Auto) 3.9 % Baso % (Auto) 0.5 % Neut # (Auto) 5.4 (1.8-7.7) 10^3/u L Lymph # (Auto) 1.0 (0.8-4.8) 10^3/u L [place] # (Auto) 0.7 (0.2-0.9) 10^3/u L Eos # (Auto) 0.3 (0.0-0.8) 10^3/u L Baso # (Auto) 0.0 (0.0-0.1) 10^3/u L Nucleated RBC % (a uto) 0 % Nucleated RBCs # 0.0 /100WBC Sodium 140 (136-145) mmol/L Potassium 3.3 L (3.5-5.1) mmol/L Chloride 102 (98-107) mmol/L Carbon Dioxide 25 (22-29) mmol/L Anion Gap 16.3 (5-19) BUN 6 L (8-23) mg/dL Creatinine 0.7 (0.5-0.9) mg/dL Glucose 119 H (74-106) mg/dL Calcium 9.7 (8.5-10.5) mg/dL Total Bilirubin 0.4 (0.15-1.2) mg/dL AST 19 (0-32) U/L ALT 7 (0-33) U/L Alkaline Phosphata se 78 (35-105) IU/L Troponin T Baselin e 17 H (0-10) ng/mL Troponin T 120 Min [place] (0-10) ng/mL Delta Troponin T (0-10) ABS# NT-Pro-B Natriuret Pep 5080 H (0-125) pg/mL Total Protein 6.7 (6.6-8.7) g/dL Albumin 3.7 (3.5-5.2) g/dL Globulin 3.0 (1.3-4.6) g/dL 04/10/19 Range/Units 22:27 WBC (4.0-10.0) 10^3/ uL RBC (4.1-5.3) 10^6/u L Hgb (11.5-15.3) g/dL Hct (37.0-47.0) % MCV (81-99) fL MCH (28.0-34.0) pg MCHC (30.0-36.0) g/dL RDW (12.1-15.1) % Plt Count (130-400) 10^3/c mm MPV (7.4-10.4) fL Neut % (Auto) % Lymph % (Auto) % [place] % (Auto) % Eos % (Auto) % Baso % (Auto) % Neut # (Auto) (1.8-7.7) 10^3/u L Lymph # (Auto) (0.8-4.8) 10^3/u L [place] # (Auto) (0.2-0.9) 10^3/u L Eos # (Auto) (0.0-0.8) 10^3/u L Baso # (Auto) (0.0-0.1) 10^3/u L Nucleated RBC % (a uto) % Nucleated RBCs # /100WBC Sodium (136-145) mmol/L Potassium (3.5-5.1) mmol/L Chloride (98-107) mmol/L Carbon Dioxide (22-29) mmol/L Anion Gap (5-19) BUN (8-23) mg/dL Creatinine (0.5-0.9) mg/dL Glucose (74-106) mg/dL Calcium (8.5-10.5) mg/dL Total Bilirubin (0.15-1.2) mg/dL AST (0-32) U/L ALT (0-33) U/L Alkaline Phosphata se (35-105) IU/L Troponin T Baselin e (0-10) ng/mL Troponin T 120 Min [place] 16.20 H (0-10) ng/mL Delta Troponin T -0.80 L (0-10) ABS# NT-Pro-B Natriuret Pep (0-125) pg/mL Total Protein (6.6-8.7) g/dL Albumin (3.5-5.2) g/dL Globulin (1.3-4.6) g/dL Discharge Plan Discharge Patient Disposition: Home, Self-Care Clinical Impression: Hypertension Qualifiers: Hypertension type: essential hypertension Qualified Code(s): I10 - Essential (primary) hypertension Condition: Stable Prescriptions: New metoprolol tartrate 25 mg tablet 25 mg PO Q12H Qty: 60 RF: 0 amlodipine 10 mg tablet 10 mg PO DAILY Qty: 30 RF: 0 Discontinued metoprolol tartrate 25 mg tablet 25 mg PO DAILY RF: 0 carvedilol [Coreg] 3.125 mg Tablet 3.125 mg PO DAILY RF: 0 No Action losartan 25 mg tablet 25 mg PO BID RF: 0 citalopram [Celexa] 10 mg tablet 10 mg PO BEDTIME RF: 0 albuterol sulfate [ProAir HFA] 90 mcg/actuation HFA aerosol inhaler 2 puff INHALATION Q6H PRN (Reason: Shortness Of Breath) RF: 0 fluticasone propionate [Flonase Allergy Relief] 50 mcg/actuation spray,suspension 1 spray INTRANASAL BID PRN (Reason: Shortness Of Breath) RF: 0 Myrbetriq 50 mg tablet extended release 24 hr 50 mg PO BEDTIME RF: 0 potassium chloride 10 mEq capsule, extended release 20 meq PO BID RF: 0 trazodone 100 mg tablet 100 mg PO BEDTIME RF: 0 furosemide [Lasix] 40 mg tablet 20 mg PO BID RF: 0 nitroglycerin 0.4 mg tablet, sublingual 0.4 mg SUBLINGUAL Q5M PRN (Reason: Chest Pain) RF: 0 rosuvastatin 5 mg tablet 5 mg PO BEDTIME RF: 0 umeclidinium-vilanterol 62.5-25 mcg/actuation blister with device 1 inh INHALATION Q24H RF: 0 pantoprazole 40 mg tablet,delayed release (DR/EC) 40 mg PO DAILY RF: 0 tramadol 50 mg tablet 100 mg PO BID PRN (Reason: Pain) RF: 0 levothyroxine 50 mcg tablet 50 mcg PO DAILY RF: 0 Advair Diskus 250-50 mcg/dose Blister With Device 1 inh INHALATION Q12H RF: 0 Plavix 75 mg Tablet 75 mg PO DAILY RF: 0 Aspir-81 81 mg Tablet,Delayed Release (Dr/Ec) 81 mg PO DAILY RF: 0 ferrous sulfate 325 mg (65 mg iron) Tablet 325 mg PO DAILY RF: 0 Vitamin D2 1,250 mcg (50,000 unit) Capsule 2,000 mcg PO DAILY RF: 0 Lexapro 10 mg Tablet 10 mg PO DAILY RF: 0 Discharge Orders: Discharge Order (Routine); Ordered 04/10/19 Ordered By: Steve Ledesma Discharge Diet: Usual diet Discharge Activity: Increase activity as tolerated Patient Instructions: Hypertension (ED) Activity Restrictions/Additional Instructions: Check your blood pressure no more than twice daily. Do not check it tonight. Medications as directed. Stop the Coreg or carvedilol as instructed. Your metoprolol takes the place of this. Return for chest discomfort, worsening shortness of breath, other concerning symptoms. Coding Level of Care Code ED Chemist Intern for Chg [place] The documentation recorded by the Saran desai Ashley, accurately reflects the service I personally performed and the decisions made by Baltazar hernandez Jeremy John, DO Apr 10, 2019 19:44
--- NOTE | 2019-04-10 20:13 | PC.NURSE ---
patient states that she was recently in the hospital for stent placement earlier this month. patient states that when she was discharged she was not given 2 of her normal medications. patient states that she didnt feel right today and knew something was wrong. patient states that she knows the two medications that she is missing is the ones that will help her bring her blood pressure down. patient is not aware of what medications these are that she is missing.
--- NOTE | 2019-04-10 20:24 | ECG_ITS ---
Measurements Intervals [place] Rate: 101 P: 55 CT: 196 QRS: 29 QRSD: 100 T: 99 QT: 367 QTc: 477 SINUS TACHYCARDIA SEPTAL MYOCARDIAL INFARCTION , OF INDETERMINATE AGE [40+ ms Q WAVE IN V1/V2] MODERATE T-WAVE ABNORMALITY, CONSIDER LATERAL ISCHEMIA [-0.1+ mV T WAVE IN I/a I/aVL/V5/V6] INTERPRETATION BASED ON A DEFAULT AGE OF 40 YEARS Compared to ECG 03/11/2019 09:00:49 No significant changes Electronically Signed On 04-11-2019 15:42:49 BRAKE LINING CURER by Lily Marquez M.D. [id number]
--- NOTE | 2019-04-10 20:24 | XRR_ITS ---
PROCEDURE INFORMATION: Exam: XR Chest, 1 View Exam date and time: 04/10/2019 8:42 PM Age: 74 years old Clinical indication: Abnormal findings; Other: Blood pressure not within range; Prior surgery; Surgery date: 3-7 days post-operative; Surgery type: Post op cardiac; Additional info: HTN TECHNIQUE: Imaging protocol: XR of the chest Views: 1 view. COMPARISON: CR XR chest 1V portable [id number] 03/11/2019 9:04 AM FINDINGS: Lungs: Unremarkable. No consolidation. Unchanged basilar fibrosis. Pleural space: Unremarkable. No pleural effusion. No pneumothorax. Heart/Mediastinum: Sternotomy wires and mediastinal surgical clips are present, consistent with previous coronary arterial bypass grafting. The heart size is upper limits of normal. Bones/joints: No acute abnormality. XR/XR chest 1V portable [id number] IMPRESSION: No active pulmonary disease. Unchanged basilar fibrosis.
[2019-04-10] MEDS: metoprolol tartrate 1 mg/1 mL SDV 5 mL 5 MG IV (20:43)
[2019-04-10 20:45] VITALS: BP 180/94; PULSE 96; RESP 18; O2SAT 93
[2019-04-10 20:51] LABS: Basophils % 0.5 %; Eosinophils # 0.3 10^3/uL (0.0-0.8); Eosinophils % 3.9 %; Hematocrit 37.9 % (37.0-47.0); Hemoglobin 11.4 g/dL (11.5-15.3); Lymphocytes % 12.5 %; Mean Corpuscular HGB Conc 30.1 g/dL (30.0-36.0); Mean Corpuscular Volume 89.8 fL (81-99); Mean Platelet Volume 9.6 fL (7.4-10.4); Monocytes # 0.7 10^3/uL (0.2-0.9); Monocytes % 9.3 %; Neutrophils # 5.4 10^3/uL (1.8-7.7); Neutrophils % 70.4 %; Nucleated Red Blood Cells % 0 %; Platelet Count 408 10^3/cmm (130-400); Red Blood Count 4.22 10^6/uL (4.1-5.3); Red Cell Distribution Width 17.2 % (12.1-15.1); White Blood Count 7.6 10^3/uL (4.0-10.0)
[2019-04-10] MEDS: amlodipine 10 mg Tablet PO (21:00)
[2019-04-10 21:08] LABS: Troponin(5th) Baseline 17 ng/mL (0-10)
[2019-04-10 21:13] LABS: Alanine Aminotransferase 7 U/L (0-33); Albumin Level 3.7 g/dL (3.5-5.2); Alkaline Phosphatase 78 IU/L (35-105); Anion Gap 16.3 (5-19); Aspartate Amino Transferase 19 U/L (0-32); Blood Urea Nitrogen 6 mg/dL (8-23); Calcium 9.7 mg/dL (8.5-10.5); Carbon Dioxide 25 mmol/L (22-29); Chloride 102 mmol/L (98-107); Glucose 119 mg/dL (74-106); NT Pro B Type Natriuretic Pept 5080 pg/mL (0-125); Potassium 3.3 mmol/L (3.5-5.1); Sodium 140 mmol/L (136-145); Total Bilirubin 0.4 mg/dL (0.15-1.2); Total Protein 6.7 g/dL (6.6-8.7)
[2019-04-10 21:16] VITALS: BP 177/81; PULSE 85; RESP 16; O2SAT 93
[2019-04-10] MEDS: labetalol 5 mg/mL SDV 20mL 20 MG IVP (22:19)
[2019-04-10 22:21] VITALS: BP 163/61; PULSE 88; RESP 18; O2SAT 96
--- NOTE | 2019-04-10 22:24 | ECG_ITS ---
Measurements Intervals [place] Rate: 85 P: 65 [place]: 198 QRS: 26 QRSD: 105 T: 226 QT: 386 QTc: 460 SINUS RHYTHM SEPTAL MYOCARDIAL INFARCTION , PROBABLY OLD [40+ ms Q WAVE IN V1/V2] MODERATE T-WAVE ABNORMALITY, CONSIDER ANTEROLATERAL ISCHEMIA [-0.1+ mV T WAVE IN V3-V6] MODERATE T-WAVE ABNORMALITY, CONSIDER INFERIOR ISCHEMIA [-0.1+ mV T WAVE IN II/aVF] Compared to ECG 03/11/2019 09:00:49 Sinus tachycardia no longer present Myocardial infarct finding still present T-wave abnormality still present Possible ischemia still present Electronically Signed On 04-11-2019 20:27:54 NUMERICAL CONTROL OPERATOR by Lily Marquez M.D. [id number]
[2019-04-10 23:02] VITALS: BP 175/74; PULSE 87; RESP 18; O2SAT 98
[2019-04-11 00:37] VITALS: BP 137/60; PULSE 93; RESP 18; O2SAT 94
[2019-04-11 03:12] VITALS: BP 157/89; PULSE 86; RESP 17; O2SAT 97
[2019-04-11 06:22] VITALS: BP 174/73; PULSE 98; RESP 18; O2SAT 95
[2019-04-11 06:30] VITALS: BP 174/73
[2019-04-11] MEDS: cloNIDine 0.1 mg Tablet 0.2 MG PO (06:30)
== END 2019-04-11 07:37 | disposition home or self-care (01) ==
PROVIDERS: Emergency Provider Emergency Medicine
DX: I10 Essential (primary) hypertension (principal); Z79.02 Long term (current) use of antithrombotics/antiplatelets; Z79.82 Long term (current) use of aspirin; Z87.891 Personal history of nicotine dependence
CPT/HCPCS: 71045; 80053; 83880; 84484; 85025; 93005; 96374; 96375; 99283; 99284; J3490

== ENCOUNTER → 2019-05-18 11:02 | Outpatient (BNVA) | payer MEDICARE, MEDICAID, SELFPAY | PROVIDERS: Visit Provider Family Medicine | DX: G89.4 Chronic pain syndrome (principal); D50.9 Iron deficiency anemia, unspecified; J44.9 Chronic obstructive pulmonary disease, unspecified; E87.6 Hypokalemia; E03.9 Hypothyroidism, unspecified; K21.9 Gastro-esophageal reflux disease without esophagitis; I50.22 Chronic systolic (congestive) heart failure; F41.1 Generalized anxiety disorder; F51.04 Psychophysiologic insomnia; D50.8 Other iron deficiency anemias; M15.0 Primary generalized (osteo)arthritis | CPT/HCPCS: 80053; 83540; 84443; 85025 ==

== ENCOUNTER 2019-09-23 06:00 | Outpatient (RCR) | payer MEDICARE, MEDICAID, SELFPAY | END 2019-10-08 23:59 | disposition home or self-care (01) | LOC: MPT 06:00 | PROVIDERS: PCP Family Medicine; Referring Provider Family Medicine; Visit Provider Family Medicine | DX: N39.46 Mixed incontinence (principal); N32.81 Overactive bladder | CPT/HCPCS: 97110; 97140; 97161; 97530 ==

== ENCOUNTER → 2019-09-30 10:09 | Outpatient (BNVA) | payer MEDICARE, MEDICAID, SELFPAY | PROVIDERS: Visit Provider Family Medicine | DX: J30.1 Allergic rhinitis due to pollen (principal); I50.20 Unspecified systolic (congestive) heart failure; E03.9 Hypothyroidism, unspecified; I10 Essential (primary) hypertension; E78.5 Hyperlipidemia, unspecified | CPT/HCPCS: 80048; 80061; 84439; 84443; 84481 ==

== ENCOUNTER → 2019-10-07 09:48 | Outpatient (BNVA) | payer MEDICARE, MEDICAID, SELFPAY | PROVIDERS: PCP Family Medicine; Referring Provider Family Medicine; Visit Provider Anesthesiology Pain Medicine | DX: G89.4 Chronic pain syndrome (principal); M51.36 Other intervertebral disc degeneration, lumbar region; M47.816 Spondylosis without myelopathy or radiculopathy, lumbar region; M54.16 Radiculopathy, lumbar region; M54.9 Dorsalgia, unspecified; M15.0 Primary generalized (osteo)arthritis; M79.605 Pain in left leg; Z79.891 Long term (current) use of opiate analgesic | CPT/HCPCS: 99203; 99204 ==

== ENCOUNTER 2019-10-15 11:10 | Outpatient (CLI) | payer MEDICARE, MEDICAID, SELFPAY ==
--- NOTE | 2019-10-15 11:45 | MR_ITS ---
WS: [id number] MRI LUMBAR SPINE NONCONTRAST HISTORY: M54.16 Radiculopathy, lumbar region COMPARISON: 05/11/2018 TECHNIQUE: Sagittal and axial multisequence imaging is submitted. Mild straightening of the normal lumbar lordosis. Progression of degenerative disc space narrowing an d desiccation at L1-2 since 05/11/2018. There is a small amount of marrow edema along the adjacent endp lates of L1 and L2. The remaining disc spaces demonstrate moderate narrowing and desiccation. Conus terminates normally at L1-2 disc level. L1-L2: Diffuse annular disc bulging and facet arthritis. Annular disc bulging extends into the forame n with mild bilateral foraminal narrowing. L2-L3: Diffuse annular disc bulging and osteophytic ridging. Moderate facet and ligamentum flavum art hritis. Mild central stenosis and mild bilateral foraminal stenosis. Similar to the prior study. L3-L4: Diffuse annular disc bulging. Mild ligamentum flavum arthritis and facet arthritis. Mild subar ticular recess and foraminal stenosis. L4-L5: Diffuse annular disc bulging and osteophytic ridging. Mild ligamentum flavum disease and facet arthritis. Osteophyte encroachment into the RIGHT lateral thecal sac. Mild central with bilateral aparicio barticular recess and foraminal stenosis. More significant foraminal stenosis on the RIGHT. L5-S1: Diffuse annular disc bulging with ligamentum flavum arthritis and facet arthritis. Mild bilate ral subarticular recess and bilateral foraminal stenosis, greater on the LEFT than the RIGHT. Tarlov cysts posterior to the sacrum. MR/MR lumbar spine wo con* [id number] IMPRESSION: 1. Progression of spondylitic changes with disc disease and osteophytes since 2019. 2. Moderate progression of degenerative disc disease with marrow edema at L1-2 . Mild bilateral foraminal stenosis at L1-2 due to disc bulging. 3. Mild central, bilateral subarticular and foraminal stenosis at L4-5, greate r on the RIGHT. 4. Mild bilateral subarticular recess and foraminal stenosis at L5-S1. Greater foraminal stenosis on the LEFT. 5. Mild central and bilateral foraminal stenosis at L2-3.
== END 2019-10-15 11:11 | disposition home or self-care (01) ==
LOC: RADSHAW 11:14
PROVIDERS: PCP Family Medicine; Visit Provider Anesthesiology Pain Medicine
DX: M54.16 Radiculopathy, lumbar region (principal); M51.36 Other intervertebral disc degeneration, lumbar region; R60.0 Localized edema; M48.061 Spinal stenosis, lumbar region without neurogenic claudication; M48.07 Spinal stenosis, lumbosacral region
CPT/HCPCS: 72148

== ENCOUNTER → 2019-10-20 14:09 | Outpatient (BNVA) | payer MEDICARE, MEDICAID, SELFPAY | PROVIDERS: PCP Family Medicine; Visit Provider Anesthesiology Pain Medicine | DX: M16.11 Unilateral primary osteoarthritis, right hip (principal); M15.0 Primary generalized (osteo)arthritis; M54.9 Dorsalgia, unspecified | CPT/HCPCS: 20610; 77002; 77003; J1030; J3490 ==

== ENCOUNTER 2019-11-01 20:00 | Outpatient (CLI) | payer MEDICARE, MEDICAID, SELFPAY | END 2019-11-01 20:01 | disposition home or self-care (01) | LOC: SLEEP 11-02 10:03 | PROVIDERS: PCP Family Medicine; Visit Provider Internal Medicine Critical Care Medicine | DX: G47.10 Hypersomnia, unspecified (principal); G47.33 Obstructive sleep apnea (adult) (pediatric) | CPT/HCPCS: 95810 ==

== ENCOUNTER → 2019-11-08 10:08 | Outpatient (BNVA) | payer MEDICARE, MEDICAID, SELFPAY | PROVIDERS: PCP Family Medicine; Visit Provider Anesthesiology Pain Medicine | DX: G89.4 Chronic pain syndrome (principal); M15.0 Primary generalized (osteo)arthritis; M51.36 Other intervertebral disc degeneration, lumbar region; M47.816 Spondylosis without myelopathy or radiculopathy, lumbar region; M54.16 Radiculopathy, lumbar region; M54.9 Dorsalgia, unspecified | CPT/HCPCS: 99213 ==

== ENCOUNTER → 2019-11-12 08:36 | Outpatient (BNVA) | payer MEDICARE, MEDICAID, SELFPAY | PROVIDERS: PCP Family Medicine; Visit Provider Internal Medicine | DX: Z20.828 Contact with and (suspected) exposure to other viral communicable diseases (principal) | CPT/HCPCS: 87635 ==

== ENCOUNTER 2019-11-16 08:33 | Outpatient (CLI) | payer MEDICARE, MEDICAID, SELFPAY ==
[2019-11-16 09:40] VITALS: O2SAT 93; O2SAT 95
--- NOTE | 2019-11-16 13:49 | PFTS_ITS ---
Date of Study:11/16/19 Date of Dictation: MECHANICS: Forced vital capacity (FVC) is . Normal Forced expiratory volume in one second (FEV1) is reduced FEV1/FVC is reduced FLOW VOLUME LOOP: scooping of expiratory limb suggestive of lower airway obstruction . LUNG VOLUMES: Total lung capacity (TLC) is normal . Residual volume (RV) is mildy increased DIFFUSING CAPACITY FOR CARBON MONOXIDE: mildly reduced . INTERPRETATION: The pulmonary function tests are suggestive of obstructive ventilatory defect with no significant bronchodilator response with mild gas transfer defect. Please correlate clinically. . MTDD
== END 2019-11-16 08:34 | disposition home or self-care (01) ==
LOC: RT 08:34
PROVIDERS: PCP Family Medicine; Visit Provider Internal Medicine Critical Care Medicine
DX: J44.9 Chronic obstructive pulmonary disease, unspecified (principal)
CPT/HCPCS: 94060; 94726; 94729; J7611

== ENCOUNTER → 2019-11-22 13:37 | Outpatient (BNVA) | payer MEDICARE, MEDICAID, SELFPAY | PROVIDERS: PCP Family Medicine; Visit Provider Anesthesiology Pain Medicine | DX: M47.816 Spondylosis without myelopathy or radiculopathy, lumbar region (principal); M54.9 Dorsalgia, unspecified | CPT/HCPCS: 64493; 64494; 64495; J3490 ==

== ENCOUNTER 2019-11-23 06:00 | Outpatient (RCR) | payer MEDICARE, MEDICAID, SELFPAY | END 2019-12-08 23:59 | disposition home or self-care (01) | LOC: MOT 06:00 | PROVIDERS: PCP Family Medicine; Referring Provider Family Medicine; Visit Provider Family Medicine | DX: M54.16 Radiculopathy, lumbar region (principal); M47.816 Spondylosis without myelopathy or radiculopathy, lumbar region; M51.36 Other intervertebral disc degeneration, lumbar region | CPT/HCPCS: 97140; 97166; 97167 ==

== ENCOUNTER 2019-12-06 20:00 | Outpatient (CLI) | payer MEDICARE, MEDICAID, SELFPAY | END 2019-12-06 20:01 | disposition home or self-care (01) | LOC: SLEEP 12-07 09:37 | PROVIDERS: PCP Family Medicine; Visit Provider Internal Medicine Critical Care Medicine | DX: G47.33 Obstructive sleep apnea (adult) (pediatric) (principal) | CPT/HCPCS: 95811 ==

== ENCOUNTER 2019-12-09 06:00 | Outpatient (RCR) | payer MEDICARE, SELFPAY | END 2020-01-08 23:59 | disposition home or self-care (01) | LOC: MOT 06:00 | PROVIDERS: PCP Family Medicine; Referring Provider Family Medicine; Visit Provider Family Medicine | DX: Z74.09 Other reduced mobility (principal); Z78.9 Other specified health status; I50.22 Chronic systolic (congestive) heart failure | CPT/HCPCS: 97140 ==

== ENCOUNTER → 2019-12-14 10:45 | Outpatient (BNVA) | payer MEDICARE, MEDICAID, SELFPAY | PROVIDERS: PCP Family Medicine; Visit Provider Anesthesiology Pain Medicine | DX: G89.4 Chronic pain syndrome (principal); M51.36 Other intervertebral disc degeneration, lumbar region; M54.16 Radiculopathy, lumbar region; M47.816 Spondylosis without myelopathy or radiculopathy, lumbar region; M54.9 Dorsalgia, unspecified; M15.0 Primary generalized (osteo)arthritis | CPT/HCPCS: 99213 ==

== ENCOUNTER → 2019-12-28 09:59 | Outpatient (BNVA) | payer MEDICARE, SELFPAY | PROVIDERS: PCP Family Medicine; Visit Provider Anesthesiology Pain Medicine | DX: G89.4 Chronic pain syndrome (principal); M51.36 Other intervertebral disc degeneration, lumbar region; M47.816 Spondylosis without myelopathy or radiculopathy, lumbar region; M54.16 Radiculopathy, lumbar region; M54.9 Dorsalgia, unspecified; M15.0 Primary generalized (osteo)arthritis; L89.302 Pressure ulcer of unspecified buttock, stage 2; B37.2 Candidiasis of skin and nail; I50.22 Chronic systolic (congestive) heart failure; N39.46 Mixed incontinence; Z79.891 Long term (current) use of opiate analgesic | CPT/HCPCS: 99214 ==

== ENCOUNTER → 2020-01-05 13:22 | Outpatient (BNVA) | payer MEDICARE, SELFPAY | PROVIDERS: PCP Family Medicine; Referring Provider Family Medicine; Visit Provider Nurse Practitioner Family | DX: N39.46 Mixed incontinence (principal) | CPT/HCPCS: 81003 ==

== ENCOUNTER 2020-01-09 06:00 | Outpatient (RCR) | payer MEDICARE, SELFPAY | END 2020-02-07 23:59 | disposition home or self-care (01) | LOC: MOT 06:00 | PROVIDERS: PCP Family Medicine; Referring Provider Family Medicine; Visit Provider Family Medicine | DX: Z74.09 Other reduced mobility (principal); Z78.9 Other specified health status; I50.22 Chronic systolic (congestive) heart failure | CPT/HCPCS: 97140 ==

== ENCOUNTER → 2020-01-25 10:25 | Outpatient (BNVA) | payer MEDICARE, SELFPAY | PROVIDERS: PCP Family Medicine; Visit Provider Anesthesiology Pain Medicine | DX: G89.4 Chronic pain syndrome (principal); M54.16 Radiculopathy, lumbar region; M47.816 Spondylosis without myelopathy or radiculopathy, lumbar region; M51.36 Other intervertebral disc degeneration, lumbar region; M15.0 Primary generalized (osteo)arthritis; M54.9 Dorsalgia, unspecified; K59.03 Drug induced constipation; I50.22 Chronic systolic (congestive) heart failure; B37.2 Candidiasis of skin and nail; L89.302 Pressure ulcer of unspecified buttock, stage 2; Z79.891 Long term (current) use of opiate analgesic | CPT/HCPCS: 99213; 99214 ==

== ENCOUNTER 2020-01-26 12:37 | Outpatient (CLI) | payer MEDICARE, MEDICAID, SELFPAY ==
--- NOTE | 2020-01-26 13:30 | USCV_ITS ---
Sarika Banegas Age: 74 Gender: F : 1945 Exam Date: 01/26/2020 12:55 Ordering Phys: Lily Marquez MD ([email or web address]) Technologist: Henry Mcbride Exam Location: [facility] – [place] Indication: stenosis Risk Factors: Previous Vascular Surgery: Right Brachial BP: / Left Brachial BP: / Right Left Velocity (cm/s) Spectral Plaque Velocity (cm/s) Spectral Plaque Syst/Diast Broadening Syst/Diast Broadening 76.20/ 14.50 Prox CCA 123.00/ 20.50 65.10/ 11.80 Mid CCA 107.10/ 15.90 58.40/ 17.60 Distal CCA 99.10 / 22.80 243.30/26.10 Prox ICA 213.60/ 25.60 175.60/20.20 Mid ICA 119.20/ 24.40 175.60/34.20 Distal ICA 142.80/ 34.20 ECA 280.90 2.70 ICA/CCA 1.11 Antegrade Vertebral Retrograde 121.2/ 18.60 cm/s 48.60/ 14.40 cm/s 0 Bi Subclavian Bi 192.6 101.4 0 0 FINDINGS Moderate to heavy heterogeneous diffuse plaques at the bifurcation and internal carotid artery on the right side. Moderate to heavy heterogeneous plaques at the left bifurcation and proximal right carotid artery. Intimal thickening and minimal plaques in the common carotid arteries bilaterally. Antegrade flow in the vertebral artery on the right side antegrade flow in the vertebral artery on the left side Elevated Doppler flow velocity in the left external carotid artery. The right external carotid artery velocity could not be identified CONCLUSIONS Moderate to heavy heterogeneous diffuse plaques at the bifurcation and internal carotid artery on the right sidewith velocity elevation consistent with 50-79% stenosis. Moderate to heavy heterogeneous plaques at the left bifurcation and proximal right carotid arterywith velocity elevation consistent with 50-79% stenosis. Elevated velocity in the external carotid artery on the left side, suggestive of hemodynamically significant stenosis. Elevated velocity in the right vertebral artery also may suggest hemodynamically significant stenosis Retrograde flow in the vertebral artery on the left side, suggestive of high grade proximal subclavian artery stenosis Compared to the study from a 12/31/2018, there may not be a significant change. Consider CTA, to better evaluate the distal arteries, if the patient has not had one recently Dr Lily Marquez MD FACC (Electronically Signed) Final Date: 26 January 2020 17:40 S
--- NOTE | 2020-01-26 14:15 | USCV_ITS ---
Sarika Banegas Age: 74 Gender: F : 1945 Exam Date: 01/26/2020 13:36 Ordering Phys: Lily Marquez MD ([email or web address]) Technologist: Cherry Gan [place]am [place] [facility] [place]ication: HISTORY OF CVA BP: 112 / 63 HR: 83 Rhythm: Sinus Technical Quality: Very technically difficult study MEASUREMENTS (Male / Female) Normal Values 2D ECHO LV Diastolic Diameter PLAX 3.5 cm 4.2 - 5.9 / 3.9 - 5.3 cm LV Systolic Diameter PLAX 3.3 cm LV Chamber Size 3.3 cm IVS Diastolic Thickness 1.4 cm 0.6 - 1.0 / 0.6 - 0.9 cm IVS Systolic Thickness 1.9 cm LVPW Diastolic Thickness 1.5 cm 0.6 - 1.0 / 0.6 - 0.9 cm LVPW Systolic Thickness 1.7 cm RV Chamber Size 2.6 cm LVOT Diameter 2.0 cm LV Ejection Fraction 2D Teich 16.3 % LV Ejection Fraction MOD 2C 64.8 % LV Ejection Fraction 2C AL 64.1 % LA Diameter 3.0 cm LA Width 2.8 cm LA Height 4.8 cm RA Width 2.5 cm RA Height 4.2 cm Aorta at Sinotubular Diameter 2.2 cm M-MODE LV Diastolic Diameter MM 3.6 cm 4.2 - 5.9 / 3.9 - 5.3 cm LV Systolic Diameter MM 2.9 cm LV Ejection Fraction MM Teich 40.1 % IVS Diastolic Thickness MM 0.8 cm 0.6 - 1.0 / 0.6 - 0.9 cm IVS Systolic Thickness MM 1.5 cm LVPW Diastolic Thickness MM 1.5 cm 0.6 - 1.0 / 0.6 - 0.9 cm LVPW Systolic Thickness MM 1.6 cm RV Diastolic Diameter MM 1.4 cm Aortic Annulus Diameter 2.4 cm LA Ao Ratio MM 1.4 MV E Point Septal Separation 0.4 cm DOPPLER AV Peak Velocity 203.0 cm/s LVOT Peak Velocity 78.5 cm/s AV Area Cont Eq vti 1.5 cm squared AV Area Cont Eq pk 1.3 cm squared MV Area PHT 5.5 cm squared Mitral E to A Ratio 0.9 MV E' Velocity 82.5 cm/s Mitral E to MV E' Ratio 19.3 Mitral E to LV E' Lateral Ratio 18.4 Mitral E to LV E' Septal Ratio 20.3 TR Peak Velocity 225.0 cm/s TR Peak Gradient 20.3 mmHg TR Mean Velocity 167.7 cm/s TR Mean Gradient 12.5 mmHg TR Velocity Time Integral 72.0 cm TV Peak E Velocity 58.0 cm/s PV Peak Velocity 60.0 cm/s RV Acceleration Time 0.2 s RV Ejection Time 0.3 s RV AcT/ET 0.5 FINDINGS Left Ventricle Normal left ventricular size and systolic function, EF 68 %. No regional wall motion abnormalities. Grade I/IV diastolic dysfunction (abnormal relaxation filling pattern), normal to mildly elevated filling pressures. Right Ventricle The right ventricle is normal in size and function. Right Atrium The right atrium is normal in size. Left Atrium Mildly increased left atrial size. Mitral Valve Thickened mitral valve. Moderate to heavy mitral annular calcification Aortic Valve Thickened aortic valve. Features of aortic valve sclerosis with a peak velocity of 2.1 m/s. Tricuspid Valve No gross abnormalities noted. The valve is not visualized well Pulmonic Valve Pulmonic valve not well visualized. Pericardium Normal pericardium without effusion. Aorta Normal ascending aorta dimension. CONCLUSIONS Normal left ventricular size and systolic function, EF 68 %. No regional wall motion abnormalities. Grade I/IV diastolic dysfunction (abnormal relaxation filling pattern), normal to mildly elevated filling pressures. Mildly increased left atrial size. Thickened mitral valve. Moderate to heavy mitral annular calcification. Thickened aortic valve. Features of aortic valve sclerosis with a peak velocity of 2.1 m/s. There is no pericardial effusion. There are no intracardiac masses. No previous study is available for comparison. Dr Lily Marquez MD FAC (Electronically Signed) Final Date: 26 January 2020 18:14 S
== END 2020-01-26 12:38 | disposition home or self-care (01) ==
LOC: RAD 12:43
PROVIDERS: PCP Family Medicine; Visit Provider Internal Medicine Cardiovascular Disease
DX: Z86.73 Personal history of transient ischemic attack (TIA), and cerebral infarction without residual deficits (principal); I08.0 Rheumatic disorders of both mitral and aortic valves; I65.23 Occlusion and stenosis of bilateral carotid arteries
CPT/HCPCS: 93306; 93880

== ENCOUNTER → 2020-02-22 09:21 | Outpatient (BNVA) | payer MEDICARE, SELFPAY | PROVIDERS: PCP Family Medicine; Visit Provider Anesthesiology Pain Medicine | DX: G89.4 Chronic pain syndrome (principal); M51.36 Other intervertebral disc degeneration, lumbar region; M47.816 Spondylosis without myelopathy or radiculopathy, lumbar region; M54.16 Radiculopathy, lumbar region; M54.9 Dorsalgia, unspecified; M15.0 Primary generalized (osteo)arthritis; I50.22 Chronic systolic (congestive) heart failure; L89.302 Pressure ulcer of unspecified buttock, stage 2; T40.2X5A Adverse effect of other opioids, initial encounter; X58.XXXA Exposure to other specified factors, initial encounter; Z79.891 Long term (current) use of opiate analgesic | CPT/HCPCS: 99213 ==

== ENCOUNTER → 2020-02-24 14:10 | Outpatient (BNVA) | payer MEDICARE, SELFPAY | PROVIDERS: PCP Family Medicine; Visit Provider Nurse Practitioner Family | DX: Z20.828 Contact with and (suspected) exposure to other viral communicable diseases (principal); J06.9 Acute upper respiratory infection, unspecified | CPT/HCPCS: 87635 ==

== ENCOUNTER → 2020-02-29 10:32 | Outpatient (BNVA) | payer MEDICARE, SELFPAY | PROVIDERS: PCP Family Medicine; Visit Provider Family Medicine | DX: E03.9 Hypothyroidism, unspecified (principal); I10 Essential (primary) hypertension | CPT/HCPCS: 80048; 84443 ==

== ENCOUNTER → 2020-04-03 10:40 | Outpatient (BNVA) | payer MEDICARE, MEDICAID, SELFPAY | PROVIDERS: PCP Family Medicine; Visit Provider Anesthesiology Pain Medicine | DX: G89.4 Chronic pain syndrome (principal); M54.16 Radiculopathy, lumbar region; M47.816 Spondylosis without myelopathy or radiculopathy, lumbar region; M51.36 Other intervertebral disc degeneration, lumbar region; M54.9 Dorsalgia, unspecified; I50.22 Chronic systolic (congestive) heart failure; B37.2 Candidiasis of skin and nail; L89.302 Pressure ulcer of unspecified buttock, stage 2; M15.0 Primary generalized (osteo)arthritis; T40.2X5A Adverse effect of other opioids, initial encounter; X58.XXXA Exposure to other specified factors, initial encounter; Z79.891 Long term (current) use of opiate analgesic | CPT/HCPCS: 99214 ==

== ENCOUNTER → 2020-05-02 11:00 | Outpatient (BNVA) | payer MEDICARE, MEDICAID, SELFPAY | PROVIDERS: PCP Family Medicine; Visit Provider Family Medicine | DX: B37.2 Candidiasis of skin and nail (principal); E03.9 Hypothyroidism, unspecified; E87.6 Hypokalemia; F41.1 Generalized anxiety disorder | CPT/HCPCS: 80048; 84439; 84443; 84481 ==

== ENCOUNTER → 2020-05-08 09:09 | Outpatient (BNVA) | payer MEDICARE, SELFPAY | PROVIDERS: PCP Family Medicine; Visit Provider Anesthesiology Pain Medicine | DX: G89.29 Other chronic pain (principal); M54.16 Radiculopathy, lumbar region; M47.816 Spondylosis without myelopathy or radiculopathy, lumbar region; M54.9 Dorsalgia, unspecified; I50.22 Chronic systolic (congestive) heart failure; B37.2 Candidiasis of skin and nail; L89.302 Pressure ulcer of unspecified buttock, stage 2; M15.0 Primary generalized (osteo)arthritis; T40.2X5A Adverse effect of other opioids, initial encounter; X58.XXXA Exposure to other specified factors, initial encounter | CPT/HCPCS: 99214 ==

== ENCOUNTER → 2020-06-06 14:51 | Outpatient (BNVA) | payer MEDICARE, SELFPAY | PROVIDERS: PCP Family Medicine; Visit Provider Urology | DX: N32.81 Overactive bladder (principal); N39.41 Urge incontinence; R35.8 Other polyuria; Z68.41 Body mass index [BMI] 40.0-44.9, adult; E66.01 Morbid (severe) obesity due to excess calories | CPT/HCPCS: 81003 ==

== ENCOUNTER → 2020-06-07 08:25 | Outpatient (BNVA) | payer MEDICARE, MEDICAID, SELFPAY | PROVIDERS: PCP Family Medicine; Visit Provider Anesthesiology Pain Medicine | DX: M54.16 Radiculopathy, lumbar region (principal); M47.816 Spondylosis without myelopathy or radiculopathy, lumbar region; M51.36 Other intervertebral disc degeneration, lumbar region; M54.9 Dorsalgia, unspecified; I50.22 Chronic systolic (congestive) heart failure; B37.2 Candidiasis of skin and nail; L89.302 Pressure ulcer of unspecified buttock, stage 2; N39.46 Mixed incontinence; M15.0 Primary generalized (osteo)arthritis; T40.2X5A Adverse effect of other opioids, initial encounter; Z23 Encounter for immunization; Z79.891 Long term (current) use of opiate analgesic | CPT/HCPCS: 99214 ==

== ENCOUNTER → 2020-07-05 10:42 | Outpatient (BNVA) | payer MEDICARE, MEDICAID, SELFPAY | PROVIDERS: PCP Family Medicine; Visit Provider Anesthesiology Pain Medicine | DX: G89.4 Chronic pain syndrome (principal); M54.16 Radiculopathy, lumbar region; M47.816 Spondylosis without myelopathy or radiculopathy, lumbar region; M51.36 Other intervertebral disc degeneration, lumbar region; M54.9 Dorsalgia, unspecified; I50.22 Chronic systolic (congestive) heart failure; L89.302 Pressure ulcer of unspecified buttock, stage 2; M15.0 Primary generalized (osteo)arthritis; T40.2X5A Adverse effect of other opioids, initial encounter; X58.XXXA Exposure to other specified factors, initial encounter; Z79.891 Long term (current) use of opiate analgesic | CPT/HCPCS: 99214 ==

== ENCOUNTER 2020-07-20 11:34 | Emergency (ER) | payer MEDICARE, MEDICAID, SELFPAY ==
[2020-07-20 11:39] VITALS: BP 159/72; PULSE 79; RESP 18; TEMP 36.6; O2SAT 96; BMI 49.4
[2020-07-20 11:45] VITALS: BP 137/82; PULSE 75; RESP 18; O2SAT 94
--- NOTE | 2020-07-20 11:46 | W.ED.FEMALGU ---
HPI - Female Genitourinary General: Chief complaint: Urogenital-Female Stated complaint: DISLODGED CATHETER Time Seen by Provider: 07/20/20 11:36 History of Present Illness: HPI Narrative: The patient is a 75-year-old female with past medical history urinary incontinence. Within the last couple weeks she had a Warren catheter placed and comes in today complaining it is dislodged. She offers no other complaints but just wishes the catheter replaced. On visual inspection the catheter is in place but the tape on her thigh has come off and that is what she was referring to. The urine is cloudy in her Warren catheter. She has no suprapubic cramping or other symptoms of UTI or fevers. She says this happened last night. Associated symptoms: Deny abdominal pain or headache(s) Review of Systems General: Reports: 10 or more systems reviewed and unremarkable except in HPI and below Const: Denies: fatigue Eyes: Denies: change in vision, blurry vision or eye redness ENMT: Denies: throat pain, swelling of lips/tongue, ear or mastoid pain or nasal congestion Card: Denies: chest pain, palpitations, irregular heart rhythm, edema, dyspnea on exertion or orthopnea Resp: Denies: dyspnea, productive cough or non-productive cough GI: Denies: abdominal pain, diarrhea or GI cramping : Denies: flank pain, difficulty voiding, urinary frequency or urinary urgency Musc: Denies: neck pain, back pain, extremity pain, joint pain, joint redness, limited range of motion or muscle weakness Skin/Breast: Denies: rash, pruritus, erythema, skin pain or skin tenderness Neuro: Denies: headache(s), numbness in extremities, weakness in extremities, sensory changes, difficulty walking, dizziness, confusion or Slurred speech present Psych: Denies: anxiety or depression Endo: Denies: polyuria All/Imm: Denies: urticaria, throat swelling or tongue swelling PFSH ED PFSH: Medical History Allergic rhinitis Aortic valve stenosis Atherosclerotic heart disease of [place] coronary artery without angina pectoris Carotid stenosis, asymptomatic Chronic pain syndrome We may consider restarting tramadol for as needed use only in the future. COPD (chronic obstructive pulmonary disease) with chronic bronchitis Coronary artery disease GERD (gastroesophageal reflux disease) Hyperlipidemia Hypertension Patient has a history of longstanding hypertension Hypothyroidism Insomnia Failed trazodone in past. Mixed incontinence urge and stress NSTEMI (non-ST elevated myocardial infarction) Obesity Obstructive sleep apnea Osteoarthritis Overactive bladder Peripheral vascular disease Personal history of poliomyelitis Polyuria Sleep apnea Subclavian artery disease Systolic congestive heart failure Urgency incontinence Surgical History H/O hernia repair H/O: hysterectomy History of cholecystectomy Hx of CABG Stented coronary artery Family History Mother CAD (coronary artery disease) Daughter CAD (coronary artery disease) Hypertension Social History Smoking and tobacco status: former smoker Quit status (tobacco): has quit using tobacco Year quit tobacco: 2009 - 3PPD x 35 Years Second hand smoke exposure: No Alcohol intake: never Caregiver/support person: Yes Lives independently: Yes Household members: none Housing: Apartment Marital status: / Current occupational status: retired and disabled History of recent travel: No Current gender identity: Female Female Reproductive History: Spontaneous abortions: No Physical Exam Const: COMMON NORMALS: no acute distress, average body habitus, patient oriented x3, no limitations, healthy appearing, alert and well nourished GENERAL APPEARANCE: cooperative, comfortable, well kempt and well developed ORIENTATION/CONSCIOUSNESS: Yes awake, Yes oriented to person, Yes oriented to place and Yes oriented to time HENMT: COMMON NORMALS: normocephalic, external ears normal and Normal external nose present HEAD & SCALP: normal to inspection and normocephalic NOSE: Normal external nose present EXTERNAL EAR: Yes external ears normal MOUTH: Normal oral and palatal mucosa present THROAT: posterior oropharynx normal Eye: COMMON NORMALS: Equal, round and reactive pupils present and EOMs intact bilaterally GENERAL EYE: appearance normal, both eyes and all related structures PUPIL: Yes Equal, round and reactive pupils present Neck/C-Spine: COMMON NORMALS: full ROM, no lymphadenopathy, no meningeal signs and no JVD GENERAL: Yes normal visual inspection Lymph: LYMPHATIC: no lymphadenopathy noted Chest: COMMONS NORMALS: normal inspection of the chest and normal palpation of entire chest wall Resp: COMMON NORMALS: normal respiratory effort, No retractions, No use of accessory muscles, clear to auscultation bilaterally and percussion normal EFFORT & INSPECTION: Yes able to speak in complete sentences AUSCULTATION: clear to auscultation bilaterally PERCUSSION: percussion normal Cardio: COMMON NORMALS: no JVD, regular rate, regular rhythm, S1 normal heart sound present, S2 normal heart sound present and Peripheral pulses 2+ throughout RATE: regular rate RHYTHM: regular rhythm HEART SOUNDS: S1 normal heart sound present and S2 normal heart sound present PERIPHERAL PULSES: Peripheral pulses 2+ throughout GI: COMMON NORMALS: Normal to inspection, nondistended, normoactive bowel sounds present, Soft to palpation, non-tender and no masses INSPECTION: Yes normal to inspection PALPATION: Yes Soft to palpation : COMMON NORMALS: Yes no CVA tenderness BLADDER/KIDNEY EXAM: Yes no CVA tenderness OTHER: The Warren is in place. The tape on her left thigh has come off and that is what she is referring to. Cloudy urine in the Warren. She has no urinary tract infection symptoms. Back/Pelvis: COMMON NORMALS: no CVA tenderness, thoracic and lumbar spine normal to inspection, no thoracic nor lumbar tenderness and thoraco-lumbar ROM normal Extremity: COMMON NORMALS: normal to inspection, full ROM, capillary refill normal, no joint enlargement and no pedal edema GENERAL: Yes normal exam except as noted Neuro: COMMON NORMALS: patient oriented x3, CN's II-XII intact bilaterally, moves all extremities, no focal motor deficits, no sensory deficits noted and gait normal SENSORIUM/ORIENTATION: Yes alert, Yes oriented to person, Yes oriented to place and Yes oriented to time MENINGEAL SIGNS: Yes no meningeal signs Psych: COMMON NORMALS: mental status grossly normal, Normal thought process present, cooperative, normal affect and speech normal APPEARANCE: Yes well kempt ATTITUDE: Yes calm SPEECH: Yes normal speech THOUGHT PROCESS: Normal thought process present Skin: COMMON NORMALS: no rashes or lesions noted GENERAL SKIN EXAM: no rashes or lesions noted Course Vital Signs: Vital signs: Vital Signs Temperature 97.8 F 07/20/20 11:39 Pulse Rate 75 07/20/20 11:45 Respiratory Rate 18 07/20/20 11:45 Blood Pressure 137/82 07/20/20 11:45 Pulse Oximetry 94 07/20/20 11:45 MDM - Female MDM Narrative: Medical decision making narrative: The patient came in for a dislodged Warren catheter. On exam it is in place but the sticker came off her left leg. She is on aspirin and Plavix and it has been tugging which is likely the cause of her pinkish urine in the bag. In the tubing the urine is clear and cloudy. The sticker was replaced in a more comfortable position for her. Urinalysis does show significant white cell burden as well likely urinary tract infection. She will be discharged with ciprofloxacin. Follow-up with primary care physician in 2 days for repeat urinalysis and checkup. ER with worsening symptoms at any time Lab Data: Labs: Lab Results 07/20/20 Range/Units 11:51 Urine Color Other (Yellow) Urine Appearance Cloudy (CLEAR) Urine pH 7 (5-7) Ur Specific Gravit y 1.010 (1.005-1.030) Urine Protein Neg (Negative) Urine Glucose (UA) Norm (Normal) Urine Ketones Negative (Negative) Urine Blood 3+ H (Negative) Urine Nitrate Negative (Negative) Urine Bilirubin Neg (Negative) Urine Urobilinogen Norm (Negative) mg/dL Ur Leukocyte [place] ase 2+ H (Negative) Urine RBC Too numerous to c nt H (0-2) /hpf Urine WBC Too numerous to c nt H (0-5) /hpf Ur Squamous Epith Cells 0-4 H (0-5) /hpf Amorphous Sediment Not Reportable Urine Bacteria 1+ H (NONE) /hpf Discharge Plan Discharge Patient Disposition: Home Clinical Impression: UTI (urinary tract infection) Condition: Stable Prescriptions: New ciprofloxacin HCl 500 mg tablet 500 mg PO Q12H Qty: 20 RF: 0 No Action nitroglycerin 0.4 mg tablet, sublingual 0.4 mg SUBLINGUAL Q5M PRN (Reason: Chest Pain) Qty: 20 RF: 0 docusate sodium 100 mg capsule 100 mg PO DAILY PRN (Reason: Constipation) RF: 0 diphenhydramine HCl [Allergy (diphenhydramine)] 25 mg capsule 25 mg PO QID PRN (Reason: Allergic Reaction) RF: 0 fluticasone propionate 50 mcg/actuation spray,suspension See Rx Instructions .ROUTE .COMPLEX Qty: 16 RF: 2 hydrocodone-acetaminophen 5-325 mg tablet 1 tab PO TID PRN (Reason: pain) 30 Days Qty: 90 RF: 0 famotidine 20 mg tablet 20 mg PO DAILY@1100 RF: 0 miscellaneous medical supply Misc See Rx Instructions miscellaneous .COMPLEX Qty: 1 RF: 0 nystatin 100,000 unit/gram ointment 1 applic topical BID Qty: 30 RF: 2 miscellaneous medical supply Misc See Rx Instructions miscellaneous DAILY MDD 6 30 Days Qty: 180 RF: 11 miscellaneous medical supply Misc 1 each miscellaneous .PRN Qty: 1 RF: 0 miscellaneous medical supply Misc 1 each miscellaneous .PRN Qty: 1 RF: 0 ipratropium-albuterol 0.5 mg-3 mg(2.5 mg base)/3 mL solution for nebulization 3 ml inhalation Q6H PRN (Reason: wheezing) Qty: 360 RF: 11 naproxen 375 mg tablet See Rx Instructions .ROUTE .COMPLEX Qty: 90 RF: 2 Yupelri 175 mcg/3 mL solution for nebulization 175 mcg inhalation DAILY Qty: 90 RF: 11 albuterol sulfate [ProAir HFA] 90 mcg/actuation HFA aerosol inhaler 2 puff INHALATION Q6H PRN (Reason: Shortness Of Breath) 90 Days Qty: 18 RF: 5 budesonide 0.5 mg/2 mL suspension for nebulization 0.5 mg inhalation BID Qty: 120 RF: 3 hydroxyzine HCl 25 mg tablet 25 mg PO DAILY PRN (Reason: Anxiety) RF: 0 Lasix 40 mg tablet 40 mg PO DAILY@1100 RF: 0 clopidogrel 75 mg tablet 75 mg PO DAILY@1099 RF: 0 Aspir-81 81 mg tablet,delayed release (DR/EC) 81 mg PO DAILY@1099 RF: 0 potassium chloride 8 mEq tablet extended release 8 meq PO BID@ RF: 0 amlodipine 10 mg tablet 10 mg PO DAILY@1099 RF: 0 levothyroxine 50 mcg tablet 50 mcg PO DAILY@1999 RF: 0 pantoprazole 40 mg tablet,delayed release (DR/EC) 40 mg PO DAILY@1099 RF: 0 ferrous sulfate 325 mg (65 mg iron) tablet 325 mg PO DAILY@1099 RF: 0 losartan 25 mg tablet 25 mg PO DAILY@1099 RF: 0 rosuvastatin 5 mg tablet 5 mg PO DAILY@1999 RF: 0 metoprolol tartrate 25 mg tablet 25 mg PO BID@ RF: 0 duloxetine 20 mg capsule,delayed release(DR/EC) 20 mg PO BID@ RF: 0 Perforomist 20 mcg/2 mL solution for nebulization 2 ml inhalation BID@ RF: 0 cholecalciferol (vitamin D3) 50 mcg (2,000 unit) capsule 50 mcg PO DAILY@1100 RF: 0 Discharge Orders: Discharge ED (Routine); Ordered 07/20/20 Ordered By: Donta Flores Referrals: Camille Granados MD [Primary Care Provider] - Discharge Diet: Advance as tolerated Discharge Activity: Resume usual activity Patient Instructions: Urinary Tract Infection in Women (ED), Opioid Safety Activity Restrictions/Additional Instructions: You came in because you thought your Warren catheter was dislodged however exam reveals it is in place however 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 There has likely been some tugging through the night as well and you are on aspirin and Plavix. Your urine is slightly pinkish colored from this. The urine in the tube is clear and cloudy. Urinalysis shows you do have a urinary tract infection and will be discharged with Plavix. Please follow-up with your primary care provider in a couple days to have your urine and symptoms rechecked. Return to the ER at anytime with worsening symptoms Coding Level of Care Code ED Slot Floor Supervisor for Jenae Kemp Exam Comprehensive
[2020-07-20] MEDS: ciprofloxacin 500 mg Tablet PO (11:55)
[2020-07-20 12:06] LABS: Add Urine Microscopic? YES; Bilirubin Urine Neg (Negative); Blood Urine 3+ (Negative); Glucose Urine UA Norm (Normal); Ketones Urine Negative (Negative); Leukocyte Esterase Urine 2+ (Negative); Nitrate Urine Negative (Negative); Protein Urine Neg (Negative); Urine Appearance Cloudy (CLEAR); Urine Color Other (Yellow); Urobilinogen Urine Norm (Negative); pH Urine 7 (5-7)
[2020-07-20 12:11] LABS: RBC Urine TOO NUMEROUS TO CNT /hpf (0-2); WBC Urine TOO NUMEROUS TO CNT /hpf (0-5)
[2020-07-20 12:13] LABS: Add Urine Culture? Yes; Bacteria Urine 1+ /hpf; Squamous Epithelial Cell Urine 0-4 /hpf (0-5)
--- NOTE | 2020-07-20 13:58 | PC.NURSE ---
Patient moved to pitt bed at this time
== END 2020-07-20 15:11 | disposition home or self-care (01) ==
PROVIDERS: Emergency Provider Family Medicine; PCP Family Medicine
DX: N39.0 Urinary tract infection, site not specified (principal); Z79.82 Long term (current) use of aspirin; Z79.02 Long term (current) use of antithrombotics/antiplatelets; I25.10 Atherosclerotic heart disease of native coronary artery without angina pectoris; J44.9 Chronic obstructive pulmonary disease, unspecified; E78.5 Hyperlipidemia, unspecified; I10 Essential (primary) hypertension; I25.2 Old myocardial infarction; Z87.891 Personal history of nicotine dependence
CPT/HCPCS: 81001; 87077; 87086; 87186; 99283

== ENCOUNTER → 2020-07-24 15:55 | Outpatient (BNVA) | payer MEDICARE, MEDICAID, SELFPAY | PROVIDERS: PCP Family Medicine; Visit Provider Family Medicine | DX: I10 Essential (primary) hypertension (principal) | CPT/HCPCS: 80048 ==

== ENCOUNTER → 2020-12-05 18:00 | Outpatient (BNVA) | payer MEDICARE, MEDICAID, SELFPAY | PROVIDERS: PCP Family Medicine; Visit Provider Family Medicine | DX: I10 Essential (primary) hypertension (principal); J44.9 Chronic obstructive pulmonary disease, unspecified; E78.2 Mixed hyperlipidemia; D50.8 Other iron deficiency anemias; E03.9 Hypothyroidism, unspecified; K21.9 Gastro-esophageal reflux disease without esophagitis; F41.1 Generalized anxiety disorder; E87.6 Hypokalemia; G89.4 Chronic pain syndrome; M15.0 Primary generalized (osteo)arthritis; I50.22 Chronic systolic (congestive) heart failure; J30.1 Allergic rhinitis due to pollen; I25.810 Atherosclerosis of coronary artery bypass graft(s) without angina pectoris; G25.81 Restless legs syndrome; K43.9 Ventral hernia without obstruction or gangrene; I25.10 Atherosclerotic heart disease of native coronary artery without angina pectoris; N39.46 Mixed incontinence | CPT/HCPCS: 80053; 80061; 83540; 83735; 84443; 85025 ==

== ENCOUNTER 2020-12-14 16:54 | Emergency (ER) | payer MEDICARE, MEDICAID, SELFPAY ==
[2020-12-14 17:36] VITALS: BP 136/71; PULSE 96; RESP 16; TEMP 36.8; O2SAT 95
--- NOTE | 2020-12-14 17:49 | ED_ITS ---
HPI - General Adult General: Chief complaint: General Medical Stated complaint: CATHETER PROBLEMS Time Seen by Provider: 12/14/20 17:39 History of Present Illness: HPI narrative: Patient had a Warren replaced other day it has been leaking. Here for Warren replacement. Onset (ago): day(s) Associated symptoms: Reports no associated symptoms; Deny rash or vomiting Review of Systems Narrative: Urine goes into the bag partially and urine also comes out around the Warren. Eyes: Denies: eye discharge ENMT: Denies: throat pain, oral sores or nasal congestion Resp: Reports: non-productive cough; Denies: wheezing or stridor GI: Denies: vomiting or diarrhea Skin/Breast: Denies: rash PFSH ED PFSH: Medical History (Updated 12/14/20 @ 17:54 by PABLO hCo) Allergic rhinitis Aortic valve stenosis Atherosclerotic heart disease of [place] coronary artery without angina pectoris Carotid stenosis, asymptomatic Chronic pain syndrome We may consider restarting tramadol for as needed use only in the future. COPD (chronic obstructive pulmonary disease) with chronic bronchitis Coronary artery disease Warren catheter in place GERD (gastroesophageal reflux disease) Hyperlipidemia Hypertension Patient has a history of longstanding hypertension Hypothyroidism Insomnia Failed trazodone in past. Mixed incontinence urge and stress NSTEMI (non-ST elevated myocardial infarction) Obesity Obstructive sleep apnea Osteoarthritis Overactive bladder Peripheral vascular disease Personal history of poliomyelitis Polyuria Sleep apnea Subclavian artery disease Systolic congestive heart failure Urgency incontinence Surgical History H/O hernia repair H/O: hysterectomy History of cholecystectomy Hx of CABG Stented coronary artery Family History Mother CAD (coronary artery disease) Diabetes Daughter CAD (coronary artery disease) Hypertension Son CAD (coronary artery disease) Family/Other Cancer Chronic kidney disease (CKD) Diabetes Suicide Denies family history of Clotting disorder Dementia Anesthesia complication Bleeding disorder Lung disease Stroke Social History Smoking and tobacco status: former smoker Quit status (tobacco): has quit using tobacco Year quit tobacco: 2009 - 3PPD x 35 Years Second hand smoke exposure: No Smoking risk assessment/counseling performed?: No Alcohol intake: never Counseling given: No Counseling given: No Lives independently: Yes Household members: none Housing: Apartment Marital status: / Current occupational status: retired and disabled History of recent travel: No Current gender identity: Female Female Reproductive History: Spontaneous abortions: No Physical Exam Const: COMMON NORMALS: no acute distress GENERAL APPEARANCE: cooperative Resp: COMMON NORMALS: normal respiratory effort Psych: COMMON NORMALS: mental status grossly normal Course Vital Signs: Vital signs: Vital Signs Temperature 98.3 F 12/14/20 17:36 Pulse Rate 96 12/14/20 17:36 Respiratory Rate 16 12/14/20 17:36 Blood Pressure 136/71 12/14/20 17:36 Pulse Oximetry 95 12/14/20 17:36 MDM - General Adult MDM Narrative: Medical decision making narrative: Radiology studies negative. Contusion right shoulder. Discharge Plan Discharge Patient Disposition: Home Clinical Impression: Contusion of shoulder Qualifiers: Encounter type: initial encounter Laterality: right Qualified Code(s): S40.011A - Contusion of right shoulder, initial encounter Condition: Stable Prescriptions: New Jonny Arthritis Pain 1 % gel 4 g topical QID Qty: 100 RF: 0 No Action nitroglycerin 0.4 mg tablet, sublingual 0.4 mg SUBLINGUAL Q5M PRN (Reason: Chest Pain) Qty: 20 RF: 0 docusate sodium 100 mg capsule 100 mg PO DAILY PRN (Reason: Constipation) RF: 0 diphenhydramine HCl [Allergy (diphenhydramine)] 25 mg capsule 25 mg PO QID PRN (Reason: Allergic Reaction) RF: 0 acetic acid 0.25 % solution 60 ml irrigation BID Qty: 8000 RF: 0 rosuvastatin 5 mg tablet 5 mg PO DAILY 90 Days Qty: 90 RF: 3 potassium chloride 8 mEq tablet extended release 8 meq PO TID 30 Days Qty: 90 RF: 5 pantoprazole 40 mg tablet,delayed release (DR/EC) 40 mg PO DAILY 90 Days Qty: 90 RF: 1 naproxen 375 mg tablet See Rx Instructions .ROUTE .COMPLEX Qty: 90 RF: 5 losartan 25 mg tablet 25 mg PO DAILY 90 Days Qty: 90 RF: 1 levothyroxine 50 mcg tablet See Rx Instructions .ROUTE .COMPLEX Qty: 90 RF: 1 hydroxyzine HCl 25 mg tablet 25 mg PO BID PRN (Reason: anxiety) 90 Days Qty: 90 RF: 1 Lasix 40 mg tablet 40 mg PO DAILY 90 Days Qty: 90 RF: 1 fluticasone propionate 50 mcg/actuation spray,suspension See Rx Instructions .ROUTE .COMPLEX Qty: 16 RF: 5 ferrous sulfate 325 mg (65 mg iron) tablet See Rx Instructions .ROUTE .COMPLEX 90 Days Qty: 90 RF: 1 famotidine 20 mg tablet 20 mg PO DAILY 90 Days Qty: 90 RF: 1 duloxetine 20 mg capsule,delayed release(DR/EC) 20 mg PO BID 90 Days Qty: 180 RF: 1 clopidogrel 75 mg tablet 75 mg PO DAILY 90 Days Qty: 90 RF: 1 amlodipine 10 mg tablet See Rx Instructions .ROUTE .COMPLEX 90 Days Qty: 90 RF: 1 ropinirole 0.5 mg tablet 0.5 mg PO .at bedtime 90 Days Qty: 90 RF: 0 miscellaneous medical supply Misc See Rx Instructions miscellaneous .COMPLEX Qty: 1 RF: 0 nystatin 100,000 unit/gram ointment 1 applic topical BID Qty: 30 RF: 2 miscellaneous medical supply Misc See Rx Instructions miscellaneous DAILY MDD 6 30 Days Qty: 180 RF: 11 miscellaneous medical supply Misc 1 each miscellaneous .PRN Qty: 1 RF: 0 miscellaneous medical supply Misc 1 each miscellaneous .PRN Qty: 1 RF: 0 ipratropium-albuterol 0.5 mg-3 mg(2.5 mg base)/3 mL solution for nebulization 3 ml inhalation Q6H PRN (Reason: wheezing) Qty: 360 RF: 11 Yupelri 175 mcg/3 mL solution for nebulization 175 mcg inhalation DAILY Qty: 90 RF: 11 albuterol sulfate [ProAir HFA] 90 mcg/actuation HFA aerosol inhaler 2 puff INHALATION Q6H PRN (Reason: Shortness Of Breath) 90 Days Qty: 18 RF: 5 metoprolol tartrate 25 mg tablet See Rx Instructions .ROUTE .COMPLEX Qty: 60 RF: 0 Aspir-81 81 mg tablet,delayed release (DR/EC) 81 mg PO DAILY@1100 RF: 0 Perforomist 20 mcg/2 mL solution for nebulization 2 ml inhalation BID@11,20 RF: 0 cholecalciferol (vitamin D3) 50 mcg (2,000 unit) capsule 50 mcg PO DAILY@1100 RF: 0 Discharge Orders: Discharge ED (Routine); Ordered 12/14/20 Ordered By: Edgardo Temple Referrals: Camille Granados MD [Primary Care Provider] - Discharge Diet: Usual diet Discharge Activity: Increase activity as tolerated Patient Instructions: Contusion in Adults (ED) Activity Restrictions/Additional Instructions: Follow-up with medical provider as directed. Take medications as prescribed. Return to the ER or your medical provider if condition worsens. Please read and understand discharge instructions. If any questions ask please. Coding Level of Care Code ED Hotel Front Desk Agent for Chg Fwd Exam Expanded Problem Focused
--- NOTE | 2020-12-14 18:05 | ED_ITS ---
HPI - General Adult General: Chief complaint: General Medical Stated complaint: CATHETER PROBLEMS Time Seen by Provider: 12/14/20 17:39 PFSH ED PFSH: Medical History (Updated 12/14/20 @ 18:05 by PABLO Cho) Allergic rhinitis Aortic valve stenosis Atherosclerotic heart disease of [place] coronary artery without angina pectoris Carotid stenosis, asymptomatic Chronic pain syndrome We may consider restarting tramadol for as needed use only in the future. COPD (chronic obstructive pulmonary disease) with chronic bronchitis Coronary artery disease Warren catheter in place GERD (gastroesophageal reflux disease) Hyperlipidemia Hypertension Patient has a history of longstanding hypertension Hypothyroidism Insomnia Failed trazodone in past. Mixed incontinence urge and stress NSTEMI (non-ST elevated myocardial infarction) Obesity Obstructive sleep apnea Osteoarthritis Overactive bladder Peripheral vascular disease Personal history of poliomyelitis Polyuria Sleep apnea Subclavian artery disease Systolic congestive heart failure Urgency incontinence Surgical History H/O hernia repair H/O: hysterectomy History of cholecystectomy Hx of CABG Stented coronary artery Family History Mother CAD (coronary artery disease) Diabetes Daughter CAD (coronary artery disease) Hypertension Son CAD (coronary artery disease) Family/Other Cancer Chronic kidney disease (CKD) Diabetes Suicide Denies family history of Clotting disorder Dementia Anesthesia complication Bleeding disorder Lung disease Stroke Social History Smoking and tobacco status: former smoker Quit status (tobacco): has quit using tobacco Year quit tobacco: 2009 - 3PPD x 35 Years Second hand smoke exposure: No Smoking risk assessment/counseling performed?: No Alcohol intake: never Counseling given: No Counseling given: No Lives independently: Yes Household members: none Housing: Apartment Marital status: / Current occupational status: retired and disabled History of recent travel: No Current gender identity: Female Female Reproductive History: Spontaneous abortions: No Course Vital Signs: Vital signs: Vital Signs Temperature 98.3 F 12/14/20 17:36 Pulse Rate 96 12/14/20 17:36 Respiratory Rate 16 12/14/20 17:36 Blood Pressure 136/71 12/14/20 17:36 Pulse Oximetry 95 12/14/20 17:36 MDM - General Adult MDM Narrative: Medical decision making narrative: Warren catheter replacement needed due to leakage. Discharge Plan Discharge Patient Disposition: Home Clinical Impression: Complication of Warren catheter Qualifiers: Encounter type: initial encounter Qualified Code(s): T83.9XXA - Unspecified complication of genitourinary prosthetic device, implant and graft, initial encounter Condition: Stable Prescriptions: No Action nitroglycerin 0.4 mg tablet, sublingual 0.4 mg SUBLINGUAL Q5M PRN (Reason: Chest Pain) Qty: 20 RF: 0 docusate sodium 100 mg capsule 100 mg PO DAILY PRN (Reason: Constipation) RF: 0 diphenhydramine HCl [Allergy (diphenhydramine)] 25 mg capsule 25 mg PO QID PRN (Reason: Allergic Reaction) RF: 0 acetic acid 0.25 % solution 60 ml irrigation BID Qty: 8000 RF: 0 rosuvastatin 5 mg tablet 5 mg PO DAILY 90 Days Qty: 90 RF: 3 potassium chloride 8 mEq tablet extended release 8 meq PO TID 30 Days Qty: 90 RF: 5 pantoprazole 40 mg tablet,delayed release (DR/EC) 40 mg PO DAILY 90 Days Qty: 90 RF: 1 naproxen 375 mg tablet See Rx Instructions .ROUTE .COMPLEX Qty: 90 RF: 5 losartan 25 mg tablet 25 mg PO DAILY 90 Days Qty: 90 RF: 1 levothyroxine 50 mcg tablet See Rx Instructions .ROUTE .COMPLEX Qty: 90 RF: 1 hydroxyzine HCl 25 mg tablet 25 mg PO BID PRN (Reason: anxiety) 90 Days Qty: 90 RF: 1 Lasix 40 mg tablet 40 mg PO DAILY 90 Days Qty: 90 RF: 1 fluticasone propionate 50 mcg/actuation spray,suspension See Rx Instructions .ROUTE .COMPLEX Qty: 16 RF: 5 ferrous sulfate 325 mg (65 mg iron) tablet See Rx Instructions .ROUTE .COMPLEX 90 Days Qty: 90 RF: 1 famotidine 20 mg tablet 20 mg PO DAILY 90 Days Qty: 90 RF: 1 duloxetine 20 mg capsule,delayed release(DR/EC) 20 mg PO BID 90 Days Qty: 180 RF: 1 clopidogrel 75 mg tablet 75 mg PO DAILY 90 Days Qty: 90 RF: 1 amlodipine 10 mg tablet See Rx Instructions .ROUTE .COMPLEX 90 Days Qty: 90 RF: 1 ropinirole 0.5 mg tablet 0.5 mg PO .at bedtime 90 Days Qty: 90 RF: 0 miscellaneous medical supply Misc See Rx Instructions miscellaneous .COMPLEX Qty: 1 RF: 0 nystatin 100,000 unit/gram ointment 1 applic topical BID Qty: 30 RF: 2 miscellaneous medical supply Misc See Rx Instructions miscellaneous DAILY MDD 6 30 Days Qty: 180 RF: 11 miscellaneous medical supply Misc 1 each miscellaneous .PRN Qty: 1 RF: 0 miscellaneous medical supply Misc 1 each miscellaneous .PRN Qty: 1 RF: 0 ipratropium-albuterol 0.5 mg-3 mg(2.5 mg base)/3 mL solution for nebulization 3 ml inhalation Q6H PRN (Reason: wheezing) Qty: 360 RF: 11 Yupelri 175 mcg/3 mL solution for nebulization 175 mcg inhalation DAILY Qty: 90 RF: 11 albuterol sulfate [ProAir HFA] 90 mcg/actuation HFA aerosol inhaler 2 puff INHALATION Q6H PRN (Reason: Shortness Of Breath) 90 Days Qty: 18 RF: 5 metoprolol tartrate 25 mg tablet See Rx Instructions .ROUTE .COMPLEX Qty: 60 RF: 0 Aspir-81 81 mg tablet,delayed release (DR/EC) 81 mg PO DAILY@1100 RF: 0 Perforomist 20 mcg/2 mL solution for nebulization 2 ml inhalation BID@11,20 RF: 0 cholecalciferol (vitamin D3) 50 mcg (2,000 unit) capsule 50 mcg PO DAILY@1100 RF: 0 Discharge Orders: Discharge ED (Routine); Ordered 12/14/20 Ordered By: Edgardo Temple Referrals: Camille Granados MD [Primary Care Provider] - Discharge Diet: Usual diet Discharge Activity: Increase activity as tolerated Patient Instructions: Warren Catheter Placement and Care (ED) Activity Restrictions/Additional Instructions: . Coding Level of Care Code ED Pearl Peller for Jenae Kemp
[2020-12-14 18:27] VITALS: BP 136/80; PULSE 96; RESP 16; TEMP 36.8; O2SAT 98
--- NOTE | 2020-12-14 18:45 | PC.NURSE ---
BALLOON CHECKED, ONLY PULLED 7 ML, ADDED MORE SALINE, DOING DRY TEST FOR CATH.
[2020-12-14 20:11] VITALS: BP 102/59; PULSE 94; O2SAT 95
== END 2020-12-14 21:24 | disposition home or self-care (01) ==
PROVIDERS: Emergency Provider Nurse Practitioner Family; PCP Family Medicine
DX: T83.9XXA Unspecified complication of genitourinary prosthetic device, implant and graft, initial encounter (principal); S40.011A Contusion of right shoulder, initial encounter; Z79.02 Long term (current) use of antithrombotics/antiplatelets; Z79.82 Long term (current) use of aspirin; I25.10 Atherosclerotic heart disease of native coronary artery without angina pectoris; J44.9 Chronic obstructive pulmonary disease, unspecified; E78.5 Hyperlipidemia, unspecified; I25.2 Old myocardial infarction; I11.0 Hypertensive heart disease with heart failure; I50.20 Unspecified systolic (congestive) heart failure; Z95.1 Presence of aortocoronary bypass graft; Z87.891 Personal history of nicotine dependence; X58.XXXA Exposure to other specified factors, initial encounter
CPT/HCPCS: 51702; 99283

== ENCOUNTER 2021-04-03 16:53 | Observation (INO) | payer MEDICARE, MEDICAID, SELFPAY ==
--- NOTE | 2021-04-03 17:07 | CTR_ITS ---
PROCEDURE INFORMATION: Exam: CT Head Without Contrast Exam date and time: 04/03/2021 5:07 PM Age: 76 years old Clinical indication: Altered mental status/memory loss and speech disturbance; Confusion or disorientation; Patient HX: Confusion and aphasia; Additional info: Symptoms of acute stroke TECHNIQUE: Imaging protocol: Computed tomography of the head without contrast. Radiation optimization: All CT scans at this facility use at least one of these dose optimization techniques: automated exposure control; mA and/or kV adjustment per patient size (includes targeted exams where dose is matched to clinical indication); or iterative reconstruction. COMPARISON: CTA Neck [id number] 02/09/2019 2:46 PM RADIATION DOSE METRICS: Total DLP (mGy-cm): 741.81 FINDINGS: Brain: No hemorrhage. Moderate diffuse cerebral atrophy and sequela of chronic small ischemic disease. No mass effect. Cerebral ventricles: No ventriculomegaly. Paranasal sinuses: Visualized sinuses are unremarkable. No fluid levels. Mastoid air cells: Visualized mastoid air cells are well aerated. Bones/joints: Unremarkable. No acute fracture. Soft tissues: Unremarkable. CT/CT head wo con* [id number] IMPRESSION: 1. No acute intracranial abnormality. 2. Moderate diffuse cerebral atrophy and sequela of chronic small vessel ischemic disease.
--- NOTE | 2021-04-03 17:07 | ECG_ITS ---
[facility] Test Date: 2021-04-03 Pat Name: Sarika Banegas Department: Room: Gender: Female Property Disposal Manager: : 1945 Requested By: Pavel Briseno Order Number: [id number] Dalton MD: Luci Ruiz M.D. Measurements Intervals Sledge Rate: 110 P: 63 TN: 187 QRS: 32 QRSD: 97 T: 53 QT: 354 QTc: 480 Interpretive Statements SINUS TACHYCARDIA POSSIBLE LEFT ATRIAL ENLARGEMENT [-0.1mV P-WAVE IN V1/V2] SEPTAL MYOCARDIAL INFARCTION , OF INDETERMINATE AGE [40+ ms Q WAVE IN V1/V2] MODERATE T-WAVE ABNORMALITY, CONSIDER INFERIOR ISCHEMIA Compared to ECG 04/10/2019 22:33:14 ST (T wave) deviation now present Sinus rhythm no longer present Myocardial infarct finding still present T-wave abnormality still present Possible ischemia still present Electronically Signed On 04-03-2021 21:35:45 TREE KILLER by Luci Ruiz M.D. [email or web address]
--- NOTE | 2021-04-03 17:08 | W.ED.NEUROSD ---
Documented by User: Pavel Bautista DO 04/04/21 07:21 HPI - Neuro Symptoms/Deficit General: Chief Complaint: ER Hold Stated Complaint: CONFUSION, SLURRED SPEECH Time Seen by Provider: 04/03/21 16:57 Source: patient History of Present Illness: HPI Narrative: 76-year-old female presents emergency room difficulty with gait and word finding. No recent fall or trauma. Patient has some mild aphasia as well. See her stroke score. There is no family at the bedside between what EMS told us and when I can get from the patient it sounds like her last known well time was around 7-9 o'clock last evening. Denies any chest pain or abdominal pain. Onset (ago): hour(s) Location: speech and dysarthria History of same: Yes Severity: moderate Quality: weak Relieving factors: none Exacerbating factors: none Context: gradual onset On Anticoagulants: No Associated symptoms: Deny chest pain, cough, diaphoresis, fevers/chills, headache(s), anorexia, malaise, nausea, seizures, short of breath, syncope, tingling, vertigo, vomiting, weakness or other Review of Systems Const: Denies: malaise or diaphoresis ENMT: Denies: throat pain, ear or mastoid pain, nasal discharge or nasal congestion Card: Denies: chest pain or syncope Resp: Denies: dyspnea, productive cough or non-productive cough GI: Denies: nausea or vomiting : Denies: flank pain, difficulty voiding, dysuria, urinary frequency or urinary urgency Skin/Breast: Denies: rash or pruritus Neuro: Denies: headache(s) or vertigo PFS ED PFSH: Medical History Allergic rhinitis Aortic valve stenosis Atherosclerotic heart disease of rincon coronary artery without angina pectoris Carotid stenosis, asymptomatic Chronic pain syndrome We may consider restarting tramadol for as needed use only in the future. COPD (chronic obstructive pulmonary disease) with chronic bronchitis Coronary artery disease Warren catheter in place GERD (gastroesophageal reflux disease) Hyperlipidemia Hypertension Patient has a history of longstanding hypertension Hypothyroidism Insomnia Failed trazodone in past. Mixed incontinence urge and stress NSTEMI (non-ST elevated myocardial infarction) Obesity Obstructive sleep apnea Osteoarthritis Overactive bladder Peripheral vascular disease Personal history of poliomyelitis Polyuria Sleep apnea Subclavian artery disease Systolic congestive heart failure Urgency incontinence Surgical History H/O hernia repair H/O: hysterectomy History of cholecystectomy Hx of CABG Stented coronary artery Family History Mother CAD (coronary artery disease) Diabetes Daughter CAD (coronary artery disease) Hypertension Son CAD (coronary artery disease) Family/Other Cancer Chronic kidney disease (CKD) Diabetes Suicide Denies family history of Clotting disorder Dementia Anesthesia complication Bleeding disorder Lung disease Stroke Social History Smoking and tobacco status: former smoker Quit status (tobacco): has quit using tobacco Year quit tobacco: 2009 - 3PPD x 35 Years Second hand smoke exposure: No Smoking risk assessment/counseling performed?: No Alcohol intake: never Counseling given: No Counseling given: No Lives independently: Yes Household members: none Housing: Apartment Marital status: / Current occupational status: retired and disabled History of recent travel: No Current gender identity: Female Female Reproductive History: Spontaneous abortions: No NIH stroke score NIHSS: Level Of Consciousness - 1a: 0 Level Of Consciousness Questions - 1b: One Correct Level Of Consciousness Commands - 1c: One Correct Best Gaze - 2: Normal Visual Espinoza - 3: No Visual Loss Facial Palsy - 4: Normal Motor Arm Right - 5: No Drift Motor Arm Left - 5: No Drift Motor Leg Right - 6: No Drift Motor Leg Left - 6: No Drift Limb Ataxia - 7: Absent Sensory - 8: Normal Best Language - 9: No Aphasia Dysarthia - 10: Mild/Moderate Dysarthia Extinction And Inattention - 11: 0 Score: Total Score: 3 Physical Exam Const: COMMON NORMALS: no acute distress GENERAL APPEARANCE: cooperative and comfortable ORIENTATION/CONSCIOUSNESS: Yes awake HENMT: COMMON NORMALS: normocephalic, atraumatic and hearing grossly normal bilaterally HEAD & SCALP: normocephalic and atraumatic Neck/C-Spine: COMMON NORMALS: no JVD Resp: COMMON NORMALS: normal respiratory effort, No retractions, No use of accessory muscles and clear to auscultation bilaterally AUSCULTATION: clear to auscultation bilaterally Cardio: COMMON NORMALS: no JVD, regular rate, regular rhythm and No murmurs present (Cardio) RATE: regular rate RHYTHM: regular rhythm GI: COMMON NORMALS: Soft to palpation and No hepatosplenomegaly present AUSCULTATION: Yes normoactive bowel sounds PALPATION: Yes Soft to palpation, No Tenderness to palpation present (GI), No Guarding due to palpation present (GI) and Yes No hepatosplenomegaly present Extremity: COMMON NORMALS: normal to inspection, capillary refill normal, no clubbing, cyanosis or edema, no calf tenderness and no pedal edema OTHER: Unable to raise her right leg due to pain at the hip. She says its chronic pain can manipulate the hip without any significant discomfort but she cannot actually raise it herself. She does have is 5 5 strength the ankle with dorsi and plantar flexion. Skin: COMMON NORMALS: no rashes or lesions noted GENERAL SKIN EXAM: no rashes or lesions noted Course Vital Signs: Vital signs: Vital Signs Temperature 98.3 F 04/03/21 17:24 Pulse Rate 104 H 04/04/21 04:46 Respiratory Rate 20 H 04/04/21 04:46 Blood Pressure 152/60 04/04/21 04:46 Pulse Oximetry 95 04/04/21 04:46 MDM - Neuro Symptoms/Deficit MDM Narrative Medical decision making narrative: Work-up for acute CVA. Patient is not able to give us a definitive time but sometime last night it was her last known well she is nearly 24 hours out. Her NIH score on presentation is 3 there is some mild confusion as well. Care turned Dr. Peña at change of shift. Suspect patient has acute CVA she is out of the window for any intervention with TPA or thrombectomy laboratory and imaging are pending see Dr. Peña's notes for final diagnosis and disposition Took patient over from Dr. Lyon head CT and blood work is all normal did go and speak to her she still is having more difficulty finding she is not a TPA candidate as her last known well was yesterday morning I spoke to hospitalist and will admit at this time. Lab Data Result diagrams: 04/04/21 04:00 04/04/21 04:00 Labs: Radiology Impressions Head CT 04/03/21 17:07 IMPRESSION: 1. No acute intracranial abnormality. 2. Moderate diffuse cerebral atrophy and sequela of chronic small vessel ischemic disease. Chest X-Ray 04/03/21 19:31 IMPRESSION: No acute findings. Head/Neck CTA 04/03/21 23:34 IMPRESSION: 1. No large vessel occlusion or stenosis. 2. Focal decreased attenuation in the left caudate head and basal ganglia which may be secondary to a lacunar infarct. IMPRESSION: 1. The examination is limited by patient motion. 2. Near occlusion of the right proximal ICA by calcified plaque. 3. Origin of the right vertebral artery is not visualized due to motion. However, the remainder of the artery is patent. REFERENCES: NASCET CRITERIA. The degree of internal carotid artery stenosis is based on NASCET criteria. Normal is no stenosis. Mild is less than 50% stenosis. Moderate is 50-69% stenosis. Severe is 70% to 99% stenosis. Total occlusion is no detectable patent lumen. ADDENDUM: 04/04/21 0214 Findings were acknowledged as seen in the report by JORDEN RESENDIZ on 04/04/2021 2:13 AM ASSET PROTECTION DETECTIVE. The findings were acknowledged and understood. Laboratory Results WBC 10.1 10^3/uL (4.0-10.0) H 04/03/21 17:52 RBC 5.43 10^6/uL (4.1-5.3) H 04/03/21 17:52 Hgb 15.3 g/dL (11.5-15.3) 04/03/21 17:52 Hct 47.4 % (37.0-47.0) H 04/03/21 17:52 MCV 87.3 fl (81-99) 04/03/21 17:52 MCH 28.2 pg (28.0-34.0) 04/03/21 17:52 MCHC 32.3 g/dL (30.0-36.0) 04/03/21 17:52 RDW 12.7 % (12.1-15.1) 04/03/21 17:52 Plt Count 235 10^3/cmm (130-400) 04/03/21 17:52 MPV 10.8 fL (7.4-10.4) H 04/03/21 17:52 Neut % (Auto) 80.8 % 04/03/21 17:52 Lymph % (Auto) 9.6 % 04/03/21 17:52 Lewis % (Auto) 5.2 % 04/03/21 17:52 Eos % (Auto) 3.3 % 04/03/21 17:52 Baso % (Auto) 0.6 % 04/03/21 17:52 Neut # (Auto) 8.19 10^3/uL (1.8-7.7) H 04/03/21 17:52 Lymph # (Auto) 1.0 10^3/uL (0.8-4.8) 04/03/21 17:52 Lewis # (Auto) 0.5 10^3/uL (0.2-0.9) 04/03/21 17:52 Eos # (Auto) 0.3 10^3/uL (0.0-0.8) 04/03/21 17:52 Baso # (Auto) 0.1 10^3/uL (0.0-0.1) 04/03/21 17:52 Nucleated RBC % (auto) 0 % 04/03/21 17:52 Nucleated RBCs # 0.0 /100WBC 04/03/21 17:52 PT 13.20 SECONDS (12.1-14.9) 04/03/21 17:52 INR 0.97 (0.8-1.2) 04/03/21 17:52 APTT 28.8 SECONDS (23.9-36.7) 04/03/21 17:52 Sodium 138 mmol/L (136-145) 04/03/21 17:52 Potassium 3.7 mmol/L (3.5-5.1) 04/03/21 17:52 Chloride 97 mmol/L (98-107) L 04/03/21 17:52 Carbon Dioxide 23 mmol/L (22-29) 04/03/21 17:52 Anion Gap 21.7 (5-19) H 04/03/21 17:52 BUN 10 mg/dL (8-23) 04/03/21 17:52 Creatinine 0.6 mg/dL (0.5-0.9) 04/03/21 17:52 GFR Calculation Not Reportable 04/03/21 17:52 Glucose 92 mg/dL (65-115) 04/03/21 17:52 POC Glucose 104 mg/dL (70-110) 04/03/21 18:09 Calculated Osmolality 285 mOsm/kg (285-295) 04/03/21 17:52 Calcium 10.3 mg/dL (8.5-10.5) 04/03/21 17:52 Total Bilirubin 0.4 mg/dL (0.15-1.2) 04/03/21 17:52 AST 51 U/L (0-32) H 04/03/21 17:52 ALT 45 U/L (0-33) H 04/03/21 17:52 Alkaline Phosphatase 104 IU/L (35-105) 04/03/21 17:52 NT-Pro-B Natriuret Pep 283 pg/mL (0-125) H 04/03/21 17:52 Total Protein 8.0 g/dL (6.6-8.7) 04/03/21 17:52 Albumin 4.3 g/dL (3.5-5.2) 04/03/21 17:52 Globulin 3.7 g/dL (1.3-4.6) 04/03/21 17:52 TSH 3.26 uIU/mL (0.27-4.20) 04/03/21 19:53 Urine Color Yellow (Yellow) 04/03/21 17:52 Urine Appearance Sl cloudy (CLEAR) A 04/03/21 17:52 Urine pH 8 (5-7) H 04/03/21 17:52 Ur Specific Alfred 1.010 (1.005-1.030) 04/03/21 17:52 Urine Protein Neg (Negative) 04/03/21 17:52 Urine Glucose (UA) Norm (Normal) 04/03/21 17:52 Urine Ketones Negative (Negative) 04/03/21 17:52 Urine Blood 2+ (Negative) H 04/03/21 17:52 Urine Nitrate Negative (Negative) 04/03/21 17:52 Urine Bilirubin Neg (Negative) 04/03/21 17:52 Prot Sulfosalicylic Acd Negative (Negative) 04/03/21 17:52 Urine Urobilinogen Neg mg/dL (Negative) 04/03/21 17:52 Ur Leukocyte Esterase 1+ (Negative) H 04/03/21 17:52 Urine RBC 0-4 /hpf (0-2) H 04/03/21 17:52 Urine WBC 5-10 /hpf (0-5) H 04/03/21 17:52 Ur Squamous Epith Cells 0-4 /hpf (0-5) H 04/03/21 17:52 Amorphous Sediment Not Reportable 04/03/21 17:52 Urine Bacteria 1+ /hpf (NONE) H 04/03/21 17:52 Urine Opiates Screen Negative ng/mL (Negative) 04/03/21 17:52 Ur Barbiturates Screen Negative ng/mL (Negative) 04/03/21 17:52 Ur Phencyclidine Scrn Negative ng/mL (Negative) 04/03/21 17:52 Ur Amphetamines Screen Negative ng/mL (Negative) 04/03/21 17:52 U Benzodiazepines Scrn Negative ng/mL (Negative) 04/03/21 17:52 Urine Cocaine Screen Negative ng/mL (Negative) 04/03/21 17:52 U Marijuana (THC) Screen Negative ng/mL (Negative) 04/03/21 17:52 Discharge Plan Discharge Patient Disposition: Admitted As Inpatient Admit Provider: Jorden Resendiz Clinical Impression: Cerebrovascular accident Condition: Stable Coding Level of Care Code ED Chemical Process Engineer for Chg Fwd Documented by User: Paulie Peña MD 04/03/21 19:33 HPI - Neuro Symptoms/Deficit General: Chief Complaint: ER Hold Stated Complaint: CONFUSION, SLURRED SPEECH Time Seen by Provider: 04/03/21 16:57 PFSH ED PFSH: Medical History Allergic rhinitis Aortic valve stenosis Atherosclerotic heart disease of rincon coronary artery without angina pectoris Carotid stenosis, asymptomatic Chronic pain syndrome We may consider restarting tramadol for as needed use only in the future. COPD (chronic obstructive pulmonary disease) with chronic bronchitis Coronary artery disease Warren catheter in place GERD (gastroesophageal reflux disease) Hyperlipidemia Hypertension Patient has a history of longstanding hypertension Hypothyroidism Insomnia Failed trazodone in past. Mixed incontinence urge and stress NSTEMI (non-ST elevated myocardial infarction) Obesity Obstructive sleep apnea Osteoarthritis Overactive bladder Peripheral vascular disease Personal history of poliomyelitis Polyuria Sleep apnea Subclavian artery disease Systolic congestive heart failure Urgency incontinence Surgical History H/O hernia repair H/O: hysterectomy History of cholecystectomy Hx of CABG Stented coronary artery Family History Mother CAD (coronary artery disease) Diabetes Daughter CAD (coronary artery disease) Hypertension Son CAD (coronary artery disease) Family/Other Cancer Chronic kidney disease (CKD) Diabetes Suicide Denies family history of Clotting disorder Dementia Anesthesia complication Bleeding disorder Lung disease Stroke Social History Smoking and tobacco status: former smoker Quit status (tobacco): has quit using tobacco Year quit tobacco: 2009 - 3PPD x 35 Years Second hand smoke exposure: No Smoking risk assessment/counseling performed?: No Alcohol intake: never Counseling given: No Counseling given: No Lives independently: Yes Household members: none Housing: Apartment Marital status: / Current occupational status: retired and disabled History of recent travel: No Current gender identity: Female NIH stroke score Score: Total Score: 3 Course Vital Signs: Vital signs: Vital Signs Temperature 98.3 F 04/03/21 17:24 Pulse Rate 104 H 04/04/21 04:46 Respiratory Rate 20 H 04/04/21 04:46 Blood Pressure 152/60 04/04/21 04:46 Pulse Oximetry 95 04/04/21 04:46 MDM - Neuro Symptoms/Deficit MDM Narrative Medical decision making narrative: Work-up for acute CVA. Patient is not able to give us a definitive time but sometime last night it was her last known well she is nearly 24 hours out. Her NIH score on presentation is 3 there is some mild confusion as well. Took patient over from Dr. Lyon head CT and blood work is all normal did go and speak to her she still is having more difficulty finding she is not a TPA candidate as her last known well was yesterday morning I spoke to hospitalist and will admit at this time. Lab Data Result diagrams: 04/04/21 04:00 04/04/21 04:00 Labs: Radiology Impressions Head CT 04/03/21 17:07 IMPRESSION: 1. No acute intracranial abnormality. 2. Moderate diffuse cerebral atrophy and sequela of chronic small vessel ischemic disease. Chest X-Ray 04/03/21 19:31 IMPRESSION: No acute findings. Head/Neck CTA 04/03/21 23:34 IMPRESSION: 1. No large vessel occlusion or stenosis. 2. Focal decreased attenuation in the left caudate head and basal ganglia which may be secondary to a lacunar infarct. IMPRESSION: 1. The examination is limited by patient motion. 2. Near occlusion of the right proximal ICA by calcified plaque. 3. Origin of the right vertebral artery is not visualized due to motion. However, the remainder of the artery is patent. REFERENCES: NASCET CRITERIA. The degree of internal carotid artery stenosis is based on NASCET criteria. Normal is no stenosis. Mild is less than 50% stenosis. Moderate is 50-69% stenosis. Severe is 70% to 99% stenosis. Total occlusion is no detectable patent lumen. ADDENDUM: 04/04/21 0214 Findings were acknowledged as seen in the report by JORDEN RESENDIZ on 04/04/2021 2:13 AM ASSET PROTECTION DETECTIVE. The findings were acknowledged and understood. Laboratory Results WBC 10.1 10^3/uL (4.0-10.0) H 04/03/21 17:52 RBC 5.43 10^6/uL (4.1-5.3) H 04/03/21 17:52 Hgb 15.3 g/dL (11.5-15.3) 04/03/21 17:52 Hct 47.4 % (37.0-47.0) H 04/03/21 17:52 MCV 87.3 fl (81-99) 04/03/21 17:52 MCH 28.2 pg (28.0-34.0) 04/03/21 17:52 MCHC 32.3 g/dL (30.0-36.0) 04/03/21 17:52 RDW 12.7 % (12.1-15.1) 04/03/21 17:52 Plt Count 235 10^3/cmm (130-400) 04/03/21 17:52 MPV 10.8 fL (7.4-10.4) H 04/03/21 17:52 Neut % (Auto) 80.8 % 04/03/21 17:52 Lymph % (Auto) 9.6 % 04/03/21 17:52 Lewis % (Auto) 5.2 % 04/03/21 17:52 Eos % (Auto) 3.3 % 04/03/21 17:52 Baso % (Auto) 0.6 % 04/03/21 17:52 Neut # (Auto) 8.19 10^3/uL (1.8-7.7) H 04/03/21 17:52 Lymph # (Auto) 1.0 10^3/uL (0.8-4.8) 04/03/21 17:52 Lewis # (Auto) 0.5 10^3/uL (0.2-0.9) 04/03/21 17:52 Eos # (Auto) 0.3 10^3/uL (0.0-0.8) 04/03/21 17:52 Baso # (Auto) 0.1 10^3/uL (0.0-0.1) 04/03/21 17:52 Nucleated RBC % (auto) 0 % 04/03/21 17:52 Nucleated RBCs # 0.0 /100WBC 04/03/21 17:52 PT 13.20 SECONDS (12.1-14.9) 04/03/21 17:52 INR 0.97 (0.8-1.2) 04/03/21 17:52 APTT 28.8 SECONDS (23.9-36.7) 04/03/21 17:52 Sodium 138 mmol/L (136-145) 04/03/21 17:52 Potassium 3.7 mmol/L (3.5-5.1) 04/03/21 17:52 Chloride 97 mmol/L (98-107) L 04/03/21 17:52 Carbon Dioxide 23 mmol/L (22-29) 04/03/21 17:52 Anion Gap 21.7 (5-19) H 04/03/21 17:52 BUN 10 mg/dL (8-23) 04/03/21 17:52 Creatinine 0.6 mg/dL (0.5-0.9) 04/03/21 17:52 GFR Calculation Not Reportable 04/03/21 17:52 Glucose 92 mg/dL (65-115) 04/03/21 17:52 POC Glucose 104 mg/dL (70-110) 04/03/21 18:09 Calculated Osmolality 285 mOsm/kg (285-295) 04/03/21 17:52 Calcium 10.3 mg/dL (8.5-10.5) 04/03/21 17:52 Total Bilirubin 0.4 mg/dL (0.15-1.2) 04/03/21 17:52 AST 51 U/L (0-32) H 04/03/21 17:52 ALT 45 U/L (0-33) H 04/03/21 17:52 Alkaline Phosphatase 104 IU/L (35-105) 04/03/21 17:52 NT-Pro-B Natriuret Pep 283 pg/mL (0-125) H 04/03/21 17:52 Total Protein 8.0 g/dL (6.6-8.7) 04/03/21 17:52 Albumin 4.3 g/dL (3.5-5.2) 04/03/21 17:52 Globulin 3.7 g/dL (1.3-4.6) 04/03/21 17:52 TSH 3.26 uIU/mL (0.27-4.20) 04/03/21 19:53 Urine Color Yellow (Yellow) 04/03/21 17:52 Urine Appearance Sl cloudy (CLEAR) A 04/03/21 17:52 Urine pH 8 (5-7) H 04/03/21 17:52 Ur Specific Alfred 1.010 (1.005-1.030) 04/03/21 17:52 Urine Protein Neg (Negative) 04/03/21 17:52 Urine Glucose (UA) Norm (Normal) 04/03/21 17:52 Urine Ketones Negative (Negative) 04/03/21 17:52 Urine Blood 2+ (Negative) H 04/03/21 17:52 Urine Nitrate Negative (Negative) 04/03/21 17:52 Urine Bilirubin Neg (Negative) 04/03/21 17:52 Prot Sulfosalicylic Acd Negative (Negative) 04/03/21 17:52 Urine Urobilinogen Neg mg/dL (Negative) 04/03/21 17:52 Ur Leukocyte Esterase 1+ (Negative) H 04/03/21 17:52 Urine RBC 0-4 /hpf (0-2) H 04/03/21 17:52 Urine WBC 5-10 /hpf (0-5) H 04/03/21 17:52 Ur Squamous Epith Cells 0-4 /hpf (0-5) H 04/03/21 17:52 Amorphous Sediment Not Reportable 04/03/21 17:52 Urine Bacteria 1+ /hpf (NONE) H 04/03/21 17:52 Urine Opiates Screen Negative ng/mL (Negative) 04/03/21 17:52 Ur Barbiturates Screen Negative ng/mL (Negative) 04/03/21 17:52 Ur Phencyclidine Scrn Negative ng/mL (Negative) 04/03/21 17:52 Ur Amphetamines Screen Negative ng/mL (Negative) 04/03/21 17:52 U Benzodiazepines Scrn Negative ng/mL (Negative) 04/03/21 17:52 Urine Cocaine Screen Negative ng/mL (Negative) 04/03/21 17:52 U Marijuana (THC) Screen Negative ng/mL (Negative) 04/03/21 17:[address] Head: Radiologist's impression: IMPRESSION: 1. No acute intracranial abnormality. 2. Moderate diffuse cerebral atrophy and sequela of chronic small vessel ischemic disease. EKG Data EKG 1: Attestation: I personally reviewed and interpreted this EKG as follows: EKG interpretation date: 04/03/21 EKG interpretation time: 17:28 Interpretation: sinus tach hr [address] or t wave abnormalities qrs 97 qtc 419 Discharge Plan Discharge Patient Disposition: Admitted As Inpatient Admit Provider: Jorden Resendiz Clinical Impression: Cerebrovascular accident Condition: Stable Coding Level of Care Code ED Chemical Process Engineer for Jenae Kemp
[2021-04-03 17:24] VITALS: BP 114/69; PULSE 111; RESP 18; TEMP 36.8; O2SAT 92; BMI 48.6
--- NOTE | 2021-04-03 17:56 | PC.NURSE ---
PT PLACED ON CONTINUOUS SPO2, NIBP, AND CM.
[2021-04-03 18:01] LABS: Basophils # 0.1 10^3/uL (0.0-0.1); Basophils % 0.6 %; Eosinophils # 0.3 10^3/uL (0.0-0.8); Eosinophils % 3.3 %; Hematocrit 47.4 % (37.0-47.0); Hemoglobin 15.3 g/dL (11.5-15.3); Lymphocytes % 9.6 %; Mean Corpuscular HGB Conc 32.3 g/dL (30.0-36.0); Mean Corpuscular Hemoglobin 28.2 pg (28.0-34.0); Mean Corpuscular Volume 87.3 fl (81-99); Mean Platelet Volume 10.8 fL (7.4-10.4); Monocytes # 0.5 10^3/uL (0.2-0.9); Monocytes % 5.2 %; Neutrophils # 8.19 10^3/uL (1.8-7.7); Neutrophils % 80.8 %; Nucleated Red Blood Cells % 0 %; Platelet Count 235 10^3/cmm (130-400); Red Blood Count 5.43 10^6/uL (4.1-5.3); Red Cell Distribution Width 12.7 % (12.1-15.1); White Blood Count 10.1 10^3/uL (4.0-10.0)
[2021-04-03 18:13] LABS: Urine Color Yellow (Yellow)
[2021-04-03 18:14] LABS: Add Urine Microscopic? YES; Bilirubin Urine Neg (Negative); Blood Urine 2+ (Negative); Glucose Urine UA Norm (Normal); Ketones Urine Negative (Negative); Leukocyte Esterase Urine 1+ (Negative); Nitrate Urine Negative (Negative); Protein Urine Neg (Negative); RBC Urine 0-4 /hpf (0-2); Sulfosalicylic Acid Urine Negative (Negative); Urobilinogen Urine Neg (Negative); pH Urine 8 (5-7)
[2021-04-03 18:15] LABS: Add Urine Culture? Yes; Bacteria Urine 1+ /hpf; INR 0.97 (0.8-1.2); Partial Thromboplastin Time 28.8 SECONDS (23.9-36.7); Squamous Epithelial Cell Urine 0-4 /hpf (0-5)
[2021-04-03 18:20] LABS: Alanine Aminotransferase 45 U/L (0-33); Albumin Level 4.3 g/dL (3.5-5.2); Alkaline Phosphatase 104 IU/L (35-105); Anion Gap 21.7 (5-19); Aspartate Amino Transferase 51 U/L (0-32); Blood Urea Nitrogen 10 mg/dL (8-23); Calcium 10.3 mg/dL (8.5-10.5); Carbon Dioxide 23 mmol/L (22-29); Chloride 97 mmol/L (98-107); Globulin 3.7 g/dL (1.3-4.6); Glucose 92 mg/dL (65-115); Osmolality Calculated 285 mOsm/kg (285-295); Potassium 3.7 mmol/L (3.5-5.1); Sodium 138 mmol/L (136-145); Total Bilirubin 0.4 mg/dL (0.15-1.2)
[2021-04-03 18:30] LABS: Amphetamines Screen Urine Negative (Negative); Barbiturates Screen Urine Negative (Negative); Benzodiazepines Screen Urine Negative (Negative); Cocaine Screen Urine Negative (Negative); Opiate Screen Urine Negative (Negative); PCP Screen Urine Negative (Negative); THC Screen Urine Negative (Negative)
--- NOTE | 2021-04-03 19:06 | PC.NURSE ---
REPORT GIVEN TO MARIBETH Garcia RN ASSUMED CARE.
--- NOTE | 2021-04-03 19:31 | XRR_ITS ---
PROCEDURE INFORMATION: Exam: XR Chest Exam date and time: 04/03/2021 7:31 PM Age: 76 years old Clinical indication: Other: Confusion; Additional info: AMS TECHNIQUE: Imaging protocol: XR of the chest. Views: 1 view. COMPARISON: CR XR chest 1V portable [id number] 04/10/2019 8:31 PM FINDINGS: Lungs: Unremarkable. No consolidation. Pleural spaces: Unremarkable. No pleural effusion. No pneumothorax. Heart/Mediastinum: Unremarkable. No cardiomegaly. Bones/joints: Sternotomy wires noted. Visualized osseous structures are intact. XR/XR chest 1V portable [id number] IMPRESSION: No acute findings.
[2021-04-03] MEDS: aspirin 81 mg Chew Tablet 324 MG PO (19:41)
--- NOTE | 2021-04-03 19:53 | PM.HP ---
Providers/Chief Complaint Primary Care Provider: aCmille Granados MD Chief Complaint: CONFUSION, SLURRED SPEECH History of Present Illness Sarika Banegas is a 76 year old female with a past medical history of COVID-19 pneumonia hospitalized for a month requiring intubation, placement to long-term care facility, now at home, history of COPD, obstructive sleep apnea, history of ischemic cardiomyopathy, EF of 30%, had a stent placement and occluded graft on aspirin and Plavix, history of CABG in 2009, carotid artery disease, hypothyroidism, hypertension, GERD, who presents to [facility] due to word finding difficulty. Patient tells me that last night she was playing a game on her phone, when she just did not feel right, she felt that she just was in all there while playing the game, she felt like something was in her right with her, but nonetheless she went to bed. This was roughly at 10 PM, 04/02/2021. In the morning she woke up, she again did not feel right she cannot exactly pinpoint what it was, she took a shower, and then her caregiver told her to go and sit on a chair, she tells me that she was trying to sit on a chair but she just could not send in until her caregiver came over and actually sat her down in the chair. And when they started conversing, she noticed that she had word finding difficulty, no slurring of her words, no paresthesias, no facial droop, no visual deficits, no focal neurologic deficits she just had trouble finding words. The symptoms persisted so she came to [facility] for further evaluation, NIH stroke scale 3, she was found to be more than 24 hours out of her stroke window, is on aspirin and Plavix, statin, her CT of the head was negative for acute stroke. Hospitalist team was called for admission. She tells me that she does have a history of severe carotid artery stenosis, they are medically managing it, with aspirin and Plavix. Review of Systems Const: Denies: fever(s), chills, fatigue or malaise Eyes: Denies: change in vision or blurry vision ENMT: Denies: nasal congestion Resp: Denies: dyspnea, productive cough, non-productive cough or wheezing GI: Denies: abdominal pain, nausea, vomiting, hematemesis, diarrhea, constipation, hematochezia or melena : Denies: flank pain, dysuria or urinary frequency Musc: Denies: neck pain or back pain Skin/Breast: Denies: rash Neuro: Denies: headache(s), dizziness or vertigo Endo: Denies: polyuria or polydipsia Medications/Allergies Home Medications Medication Instructions Recorded Confirmed Last Taken Type nitroglycerin 0.4 mg sublingual 0.4 mg SUBLINGUAL Q5M PRN #20 tab 04/13/19 02/06/21 Unknown Rx tablet miscellaneous medical supply See Rx Instructions MISCELLANEOUS 10/04/19 02/06/21 Unknown Rx .COMPLEX #1 each miscellaneous medical supply See Rx Instructions MISCELLANEOUS 12/15/19 02/06/21 Unknown Rx DAILY 30 Days #180 each MDD 6 miscellaneous medical supply 1 each MISCELLANEOUS .PRN #1 each 12/30/19 02/06/21 Unknown Rx miscellaneous medical supply 1 each MISCELLANEOUS .PRN #1 each 12/30/19 02/06/21 Unknown Rx docusate sodium 100 mg capsule 100 mg PO DAILY PRN 01/25/20 02/06/21 Unknown History ipratropium 0.5 mg-albuterol 3 mg 3 ml INHALATION Q6H PRN #360 ml 02/15/20 02/06/21 07/20/20 Rx (2.5 mg base)/3 mL nebulization soln diphenhydramine HCl 25 mg capsule 25 mg PO QID PRN 02/22/20 02/06/21 Unknown History (Allergy (diphenhydramine)) nystatin 100,000 unit/gram topical 1 applic TOPICAL BID #30 g 05/02/20 02/06/21 Unknown Rx ointment revefenacin 175 mcg/3 mL solution 175 mcg (3 mL) INHALATION DAILY 06/28/20 02/06/21 07/20/20 Rx for nebulization (Yupelri) #90 ml albuterol sulfate 90 mcg/actuation 2 puff INHALATION Q6H PRN 90 Days 06/30/20 02/06/21 07/20/20 Rx aerosol inhaler (ProAir HFA) #18 g aspirin 81 mg tablet,delayed 81 mg PO DAILY@109907/20/20 02/06/21 07/20/20 History release cholecalciferol (vitamin D3) 50 50 mcg PO DAILY@1100 07/20/20 02/06/21 07/20/20 History mcg (2,000 unit) capsule formoterol fumarate 20 mcg/2 mL 2 ml INHALATION BID@07/20/20 02/06/21 07/20/20 History solution for nebulization (Perforomist) acetic acid 0.25 % irrigation 60 ml IRRIGATION BID #8000 ml 09/12/20 02/06/21 Unknown Rx solution metoprolol tartrate 25 mg tablet See Rx Instructions .ROUTE 11/11/20 02/06/21 Unknown Rx .COMPLEX #60 tablet amlodipine 10 mg tablet See Rx Instructions .ROUTE 12/05/20 02/06/21 Unknown Rx .COMPLEX 90 Days #90 tab clopidogrel 75 mg tablet 75 mg PO DAILY 90 Days #90 tab 12/05/20 02/06/21 Unknown Rx duloxetine 20 mg capsule,delayed 20 mg PO BID 90 Days #180 cap 12/05/20 02/06/21 Unknown Rx release famotidine 20 mg tablet 20 mg PO DAILY 90 Days #90 tab 12/05/20 02/06/21 Unknown Rx ferrous sulfate 325 mg (65 mg See Rx Instructions .ROUTE 12/05/20 02/06/21 Unknown Rx iron) tablet .COMPLEX 90 Days #90 tab fluticasone propionate 50 See Rx Instructions .ROUTE 12/05/20 02/06/21 Unknown Rx mcg/actuation nasal .COMPLEX #16 gram spray,suspension furosemide 40 mg tablet (Lasix) 40 mg PO DAILY 90 Days #90 tab 12/05/20 02/06/21 Unknown Rx hydroxyzine HCl 25 mg tablet 25 mg PO BID PRN 90 Days #90 tab 12/05/20 02/06/21 Unknown Rx levothyroxine 50 mcg tablet See Rx Instructions .ROUTE 12/05/20 02/06/21 Unknown Rx .COMPLEX #90 tablet losartan 25 mg tablet 25 mg PO DAILY 90 Days #90 tab 12/05/20 02/06/21 Unknown Rx naproxen 375 mg tablet See Rx Instructions .ROUTE 12/05/20 02/06/21 Unknown Rx .COMPLEX #90 tab pantoprazole 40 mg tablet,delayed 40 mg PO DAILY 90 Days #90 tab 12/05/20 02/06/21 Unknown Rx release potassium chloride 8 mEq 8 meq PO TID 30 Days #90 tab 12/05/20 02/06/21 Unknown Rx tablet,extended release rosuvastatin 5 mg tablet 5 mg PO DAILY 90 Days #90 tab 12/05/20 02/06/21 Unknown Rx ropinirole 0.5 mg tablet 0.5 mg PO .at bedtime 30 Days #60 03/12/21 Unknown Rx tab Allergies Allergy/AdvReac Type Severity Reaction Status Date / Time Dorr And Derivatives Allergy Intermediate rash and Verified 02/06/21 07:25 blisters penicillin G Allergy anaphylaxis Verified 02/06/21 07:25 sulfacetamide Allergy hives Verified 02/06/21 07:25 tiotropium Allergy cough Verified 02/06/21 07:25 [From Spiriva with HandiHaler] alprazolam [From Xanax] AdvReac Mild makes pt Verified 02/06/21 07:25 mean lisinopril AdvReac Mild cough Verified 02/06/21 07:25 morphine AdvReac Mild hyperactive Verified 02/06/21 07:25 pravastatin AdvReac unknown Verified 02/06/21 07:25 simvastatin AdvReac unknown Verified 02/06/21 07:25 PFSH Acute PFSH: Medical History Allergic rhinitis Aortic valve stenosis Atherosclerotic heart disease of [place] coronary artery without angina pectoris Carotid stenosis, asymptomatic Chronic pain syndrome We may consider restarting tramadol for as needed use only in the future. COPD (chronic obstructive pulmonary disease) with chronic bronchitis Coronary artery disease Warren catheter in place GERD (gastroesophageal reflux disease) Hyperlipidemia Hypertension Patient has a history of longstanding hypertension Hypothyroidism Insomnia Failed trazodone in past. Mixed incontinence urge and stress NSTEMI (non-ST elevated myocardial infarction) Obesity Obstructive sleep apnea Osteoarthritis Overactive bladder Peripheral vascular disease Personal history of poliomyelitis Polyuria Sleep apnea Subclavian artery disease Systolic congestive heart failure Urgency incontinence Surgical History H/O hernia repair H/O: hysterectomy History of cholecystectomy Hx of CABG Stented coronary artery Family History Mother CAD (coronary artery disease) Diabetes Daughter CAD (coronary artery disease) Hypertension Son CAD (coronary artery disease) Family/Other Cancer Chronic kidney disease (CKD) Diabetes Suicide Denies family history of Clotting disorder Dementia Anesthesia complication Bleeding disorder Lung disease Stroke Social History Smoking and tobacco status: former smoker Quit status (tobacco): has quit using tobacco Year quit tobacco: 2009 - 3PPD x 35 Years Second hand smoke exposure: No Smoking risk assessment/counseling performed?: No Alcohol intake: never Counseling given: No Counseling given: No Lives independently: Yes Household members: none Housing: Apartment Marital status: / Current occupational status: retired and disabled History of recent travel: No Current gender identity: Female Female Reproductive History: Spontaneous abortions: No Vitals/I&O/Wt Last Vital Signs Temp 98.3 F 04/03/21 17:24 Pulse 111 H 04/03/21 17:24 Resp 18 04/03/21 17:24 BP 114/69 04/03/21 17:24 Pulse Ox 92 04/03/21 17:24 Weight last 48 hrs Weight 120.656 kg Physical Exam Const: COMMON NORMALS: no acute distress and patient oriented x3 HENMT: COMMON NORMALS: normocephalic HEAD & SCALP: normocephalic Eye: COMMON NORMALS: Equal, round and reactive pupils present and EOMs intact bilaterally Neck/C-Spine: COMMON NORMALS: full ROM and no JVD Resp: COMMON NORMALS: normal respiratory effort, No retractions, No use of accessory muscles and clear to auscultation bilaterally AUSCULTATION: clear to auscultation bilaterally Cardio: COMMON NORMALS: regular rate, regular rhythm, S1 normal heart sound present and S2 normal heart sound present RATE: regular rate RHYTHM: regular rhythm HEART SOUNDS: S1 normal heart sound present and S2 normal heart sound present GI: COMMON NORMALS: Normal to inspection, nondistended, normoactive bowel sounds present, Soft to palpation, non-tender, No hepatosplenomegaly present, no masses and no bruits PALPATION: Yes Soft to palpation and Yes No hepatosplenomegaly present Extremity: COMMON NORMALS: capillary refill normal, no clubbing, cyanosis or edema, no calf tenderness and no pedal edema Neuro: COMMON NORMALS: patient oriented x3, CN's II-XII intact bilaterally, moves all extremities, no focal motor deficits and no sensory deficits noted Psych: COMMON NORMALS: mental status grossly normal Data : 04/03/21 17:52 04/03/21 17:52 A&P Assessment and plan (1) Cerebrovascular accident: Status: Acute (2) Restless leg syndrome: Status: Acute (3) Atherosclerosis of coronary artery of [place] heart without angina pectoris: Status: Acute Qualifiers: Coronary Disease-Associated Artery/Lesion type: [place] artery Qualified Code(s): I25.10 - Atherosclerotic heart disease of [place] coronary artery without angina pectoris (4) Aortic valve stenosis: Status: Acute Qualifiers: Cardiac valve disease etiology: rheumatic Qualified Code(s): 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 transplanted heart: [place] heart Qualified Code(s): I25.10 - Atherosclerotic heart disease of [place] coronary artery without angina pectoris (7) Carotid stenosis, asymptomatic: Status: Acute Qualifiers: Laterality: bilateral Qualified Code(s): I65.23 - Occlusion and stenosis of bilateral carotid arteries (8) Chronic pain syndrome: Status: Acute (9) Insomnia: Status: Acute Qualifiers: Insomnia type: psychophysiologic Qualified Code(s): F51.04 - Psychophysiologic insomnia (10) Hyperlipidemia: Status: Chronic Qualifiers: Hyperlipidemia type: mixed hyperlipidemia Qualified Code(s): E78.2 - Mixed hyperlipidemia (11) MIRELA (generalized anxiety disorder): Status: Acute (12) Hypothyroidism: Status: Chronic Qualifiers: Hypothyroidism type: acquired Qualified Code(s): E03.9 - Hypothyroidism, unspecified (13) COPD (chronic obstructive pulmonary disease) with chronic bronchitis: Status: Acute (14) Systolic congestive heart failure: Status: Chronic Qualifiers: Heart failure chronicity: chronic Qualified Code(s): I50.22 - Chronic systolic (congestive) heart failure (15) GERD (gastroesophageal reflux disease): Status: Chronic Qualifiers: Esophagitis presence: without esophagitis Qualified Code(s): K21.9 - Gastro-esophageal reflux disease without esophagitis (16) Hypertension: Status: Acute Qualifiers: Hypertension type: essential hypertension Qualified Code(s): I10 - Essential (primary) hypertension Plan Acute CVA -Word finding difficulty -NIH stroke scale 3, out of TPA window, out of window for clot retrieval -Currently during my examination NIH stroke scale is 0 -Takes aspirin, statin, Plavix at home -Given aspirin in the emergency room -CT of the head no acute CVA, no acute bleed -Carotid artery ultrasound January 2020 -Moderate to heavy heterogeneous diffuse plaques at the ?bifurcation and internal carotid artery on the right sidewith ?velocity elevation consistent with 50-79% stenosis. ?Moderate to heavy heterogeneous plaques at the left bifurcation ?and proximal right carotid arterywith velocity elevation ?consistent with 50-79% stenosis. ?Elevated velocity in the external carotid artery on the left ?side, suggestive of hemodynamically significant stenosis. ?Elevated velocity in the right vertebral artery also may suggest ?hemodynamically significant stenosis ?Retrograde flow in the vertebral artery on the left side, ?suggestive of high grade proximal subclavian artery stenosis ?Compared to the study from a 12/31/2018, there may not be a ?significant change. ?Consider CTA, to better evaluate the distal arteries, if the ?patient has not had one recently -According to patient she told me that they are medically managing this -Cardiac echocardiogram January 2020 Normal left ventricular size and systolic function, EF 68 %. No ?regional wall motion abnormalities. Grade I/IV diastolic ?dysfunction (abnormal relaxation filling pattern), normal to ?mildly elevated filling pressures. ?Mildly increased left atrial size. ?Thickened mitral valve.? Moderate to heavy mitral annular ?calcification. ?Thickened aortic valve.? Features of aortic valve sclerosis with ?a peak velocity of 2.1 m/s. ?There is no pericardial effusion. ?There are no intracardiac masses. ?No previous study is available for comparison -Acute CVA, and or possible subclavian steal Plan: -Continue aspirin, Plavix, statin -Neurochecks, aspiration precautions, NIH stroke scale -Telemetry monitoring -Allow for permissive hypertension -Treat systolic blood pressure greater than 220 diastolic of greater than 120 -Avoid fluids due to concerns for fluid overload, bilateral pitting edema 1+ -Lovenox for DVT prophylaxis -CODE STATUS, she wants 1 round of CPR and chest compressions and medications, after that she does not want any more resuscitation, does not want to be put on a ventilator UTI, follow urine cultures, continue Bactrim CAD, CABG -Continue aspirin, Plavix, statin Hypertension -Hold blood pressure medications GERD COPD, does not use oxygen at home, continue to monitor not in exacerbation Attestations Medical Necessity Statement*: Patient requires hospitalization, outpatient with observation, for acute CVA Coding Level of Care Code Acute Shirt Hemmer for Chg Fwd History Comprehensive Exam Comprehensive Medical Decision Making Moderate Complexity Diagnoses Cerebrovascular accident I63.9 Restless leg syndrome G25.81 Atherosclerosis of coronary artery of [place] heart without angina pectoris I25.10 Coronary Disease-Associated Artery/Lesion type: [place] artery Aortic valve stenosis I06.0 Cardiac valve disease etiology: rheumatic Obstructive sleep apnea G47.33 Atherosclerotic heart disease of [place] coronary artery without angina pectoris I25.10 [place] vs. transplanted heart: [place] heart Carotid stenosis, asymptomatic I65.23 Laterality: bilateral Chronic pain syndrome G89.4 Insomnia F51.04 Insomnia type: psychophysiologic Hyperlipidemia E78.2 Hyperlipidemia type: mixed hyperlipidemia MIRELA (generalized anxiety disorder) F41.1 Hypothyroidism E03.9 Hypothyroidism type: acquired COPD (chronic obstructive pulmonary disease) with chronic bronchitis J44.9 Systolic congestive heart failure I50.22 Heart failure chronicity: chronic GERD (gastroesophageal reflux disease) K21.9 Esophagitis presence: without esophagitis Hypertension I10 Hypertension type: essential hypertension Time Spent (min) 55
[2021-04-03 20:04] VITALS: BP 118/66; PULSE 107; RESP 14; O2SAT 94
[2021-04-03 20:16] LABS: NT Pro B Type Natriuretic Pept 283 pg/mL (0-125)
[2021-04-03 22:47] VITALS: BP 96/56; PULSE 125; RESP 18; O2SAT 95
--- NOTE | 2021-04-03 23:34 | CTR_ITS ---
PROCEDURE INFORMATION: Exam: CT Angiography Head With Contrast, Arteriography Exam date and time: 04/03/2021 11:34 PM Age: 76 years old Clinical indication: Speech disturbance and weakness; Prior surgery; Surgery type: Cabg; Patient HX: Sudden onset of aphasia with weakness ambulating. ; Additional info: CVA TECHNIQUE: Imaging protocol: Computed tomography angiography of the head with contrast. Exam focused on the arteries. 3D rendering (Not supervised by radiologist): MIP and/or 3D reconstructed images were created by the technologist. Radiation optimization: All CT scans at this facility use at least one of these dose optimization techniques: automated exposure control; mA and/or kV adjustment per patient size (includes targeted exams where dose is matched to clinical indication); or iterative reconstruction. Contrast material: OMNI 350; Contrast volume: 95 ml; Contrast route: INTRAVENOUS (IV); COMPARISON: CT head wo con* [id number] 04/03/2021 6:29 PM RADIATION DOSE METRICS: Total DLP (mGy-cm): 2745.32 FINDINGS: ANTERIOR CIRCULATION: Right internal carotid artery: Unremarkable. Intracranial segment is patent with no significant stenosis. No aneurysm. Right middle cerebral artery: Unremarkable. No occlusion or significant stenosis. No aneurysm. Right anterior cerebral artery: Unremarkable. No occlusion or significant stenosis. No aneurysm. Left internal carotid artery: Unremarkable. Intracranial segment is patent with no significant stenosis. No aneurysm. Left middle cerebral artery: Unremarkable. No occlusion or significant stenosis. No aneurysm. Left anterior cerebral artery: Unremarkable. No occlusion or significant stenosis. No aneurysm. POSTERIOR CIRCULATION: Right vertebral artery: Unremarkable. No occlusion or significant stenosis. No aneurysm. Left vertebral artery: Unremarkable. No occlusion or significant stenosis. No aneurysm. Basilar artery: Unremarkable. No occlusion or significant stenosis. No aneurysm. Right posterior cerebral artery: Unremarkable. No occlusion or significant stenosis. No aneurysm. Left posterior cerebral artery: origin left MANAGER CHILD. Brain: Focal decreased attenuation in the left caudate head and basal ganglia. Cerebral ventricles: No ventriculomegaly. Bones/joints: Unremarkable. No acute fracture. Soft tissues: Unremarkable. PROCEDURE INFORMATION: Exam: CT Angiography Neck With Contrast Exam date and time: 04/03/2021 11:34 PM Age: 76 years old Clinical indication: Speech disturbance and weakness; Prior surgery; Surgery type: Cabg; Patient HX: Sudden onset of aphasia with weakness ambulating. ; Additional info: CVA TECHNIQUE: Imaging protocol: Computed tomography angiography of the neck with contrast. 3D rendering (Not supervised by radiologist): MIP and/or 3D reconstructed images were created by the technologist. Radiation optimization: All CT scans at this facility use at least one of these dose optimization techniques: automated exposure control; mA and/or kV adjustment per patient size (includes targeted exams where dose is matched to clinical indication); or iterative reconstruction. Contrast material: OMNI 350; Contrast volume: 95 ml; Contrast route: INTRAVENOUS (IV); COMPARISON: CT head wo [facility]* [id number] 04/03/2021 6:29 PM RADIATION DOSE METRICS: Total DLP (mGy-cm): 2745.32 FINDINGS: Right common carotid artery: No stenosis. No dissection or occlusion. Right internal carotid artery: Near occlusion of the right proximal ICA by calcified plaque. Right external carotid artery: No occlusion or stenosis of the origin. Left common carotid artery: No stenosis. No dissection or occlusion. Left internal carotid artery: Left ICA calcifications without significant stenosis. Left external carotid artery: No occlusion or stenosis of the origin. Right vertebral artery: Origin of the right vertebral artery is not visualized due to motion. However, the remainder of the artery is patent. Left vertebral artery: No stenosis. No dissection or occlusion. Aorta: There is moderate atherosclerotic disease. Soft tissues: Normal. No significant soft tissue swelling. Bones/joints: There has been a median sternotomy. Other findings: The examination is limited by patient motion. CT/CT angio headneck* [id number] IMPRESSION: 1. No large vessel occlusion or stenosis. 2. Focal decreased attenuation in the left caudate head and basal ganglia which may be secondary to a lacunar infarct. IMPRESSION: 1. The examination is limited by patient motion. 2. Near occlusion of the right proximal ICA by calcified plaque. 3. Origin of the right vertebral artery is not visualized due to motion. However, the remainder of the artery is patent. REFERENCES: NASCET CRITERIA. The degree of internal carotid artery stenosis is based on NASCET criteria. Normal is no stenosis. Mild is less than 50% stenosis. Moderate is 50-69% stenosis. Severe is 70% to 99% stenosis. Total occlusion is no detectable patent lumen.
[2021-04-04] VITALS (12 sets, daily range): BP systolic 111–152; BP diastolic 60–93; PULSE 100–117; RESP 13–22; O2SAT 91–98
[2021-04-04 00:02] LABS: Thyroid Stimulating Hormone 3.26 uIU/mL (0.27-4.20)
[2021-04-04] MEDS: iohexol 350 mg/mL 100 mL Btl IV (00:37)
[2021-04-04] MEDS: ciprofloxacin 500 mg Tablet 250 MG PO ×2 (01:56→10:36)
[2021-04-04] MEDS: sodium chloride 0.9% 1,000 ML 999 ML IV (01:56)
[2021-04-04] MEDS: enoxaparin 40 mg/0.4 mL Syringe SUBCUT (01:56)
[2021-04-04 02:54] LABS: Glucose Point of Care 104 mg/dL (70-110)
[2021-04-04] MEDS: ropinirole 0.25 mg Tablet 0.5 MG PO (03:34)
[2021-04-04 04:26] LABS: Basophils # 0.1 10^3/uL (0.0-0.1); Basophils % 0.7 %; Eosinophils # 0.5 10^3/uL (0.0-0.8); Eosinophils % 5.7 %; Hematocrit 41.7 % (37.0-47.0); Hemoglobin 13.5 g/dL (11.5-15.3); Lymphocytes # 1.4 10^3/uL (0.8-4.8); Lymphocytes % 15.9 %; Mean Corpuscular HGB Conc 32.4 g/dL (30.0-36.0); Mean Corpuscular Hemoglobin 28.4 pg (28.0-34.0); Mean Corpuscular Volume 87.6 fl (81-99); Mean Platelet Volume 10.8 fL (7.4-10.4); Monocytes # 0.8 10^3/uL (0.2-0.9); Monocytes % 8.9 %; Neutrophils # 5.78 10^3/uL (1.8-7.7); Neutrophils % 68.2 %; Nucleated Red Blood Cells % 0 %; Platelet Count 213 10^3/cmm (130-400); Red Blood Count 4.76 10^6/uL (4.1-5.3); Red Cell Distribution Width 12.7 % (12.1-15.1); White Blood Count 8.5 10^3/uL (4.0-10.0)
[2021-04-04 04:41] LABS: Estmated Average Glucose 108; Hemoglobin A1C 5.4 % (4.0-6.0)
[2021-04-04 04:44] LABS: Anion Gap 17.4 (5-19); Blood Urea Nitrogen 12 mg/dL (8-23); Calcium 9.8 mg/dL (8.5-10.5); Carbon Dioxide 23 mmol/L (22-29); Chloride 101 mmol/L (98-107); Chol HDL Ratio 4.18 mg/dL (0.0-4.40); Cholesterol 184 mg/dL (0-200); Glucose 95 mg/dL (65-115); HDL Cholesterol 44 mg/dL (60-100); LDL Cholesterol Calculated 122 mg/dL (50-129); LDL HDL Ratio 2.77 RATIO (0.00-3.22); Magnesium 2.2 mg/dL (1.7-2.3); Osmolality Calculated 286 mOsm/kg (285-295); Potassium 3.4 mmol/L (3.5-5.1); Sodium 138 mmol/L (136-145); Triglycerides 90 mg/dL (0-150)
--- NOTE | 2021-04-04 08:34 | PC.NURSE ---
patient connected to continuous bedside cardiac, BP and O2 monitor
[2021-04-04] MEDS: duloxetine 20 mg Capsule PO (08:59)
[2021-04-04] MEDS: levothyroxine 50 mcg Tablet PO (08:59)
[2021-04-04] MEDS: famotidine 20 mg Tablet PO (08:59)
[2021-04-04] MEDS: clopidogrel 75 mg Tablet PO (09:00)
[2021-04-04] MEDS: FUROsemide 40 mg Tablet PO (09:00)
[2021-04-04] MEDS: atorvastatin 40 mg Tablet 20 MG PO (09:00)
[2021-04-04] MEDS: docusate sodium 100 mg Capsule PO (09:00)
[2021-04-04] MEDS: ferrous sulfate EC 325 mg Tablet PO (09:01)
[2021-04-04] MEDS: aspirin 81 mg EC Tablet PO (10:36)
[2021-04-04] MEDS: cholecalciferol (vitamin D3) 1,000 unit Tablet 2000 UNIT PO (10:36)
--- NOTE | 2021-04-04 10:36 | P.DS_ITS ---
Discharge Providers Date of Admission: 04/03/21 20:07 Date of Discharge: April 04, 2021 Attending Provider at Admission: Jorden Jama MD Attending Provider at Discharge: Kobe Menjivar MD Primary Care Provider: Camille Granados MD Diagnoses at Discharge Discharge Diagnosis (1) Cerebrovascular accident: Status: Acute (2) Restless leg syndrome: Status: Acute (3) Atherosclerosis of coronary artery of [place] heart without angina pectoris: Status: Acute Qualifiers: Coronary Disease-Associated Artery/Lesion type: [place] artery Qualified Code(s): I25.10 - Atherosclerotic heart disease of [place] coronary artery without angina pectoris (4) Aortic valve stenosis: Status: Acute Qualifiers: Cardiac valve disease etiology: rheumatic Qualified Code(s): 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 transplanted heart: [place] heart Qualified Code(s): I25.10 - Atherosclerotic heart disease of [place] coronary artery without angina pectoris (7) Carotid stenosis, asymptomatic: Status: Acute Qualifiers: Laterality: bilateral Qualified Code(s): I65.23 - Occlusion and stenosis of bilateral carotid arteries (8) Chronic pain syndrome: Status: Acute Permanent problem details: We may consider restarting tramadol for as needed use only in the future. (9) Insomnia: Status: Acute Qualifiers: Insomnia type: psychophysiologic Qualified Code(s): F51.04 - Psychophysiologic insomnia Permanent problem details: Failed trazodone in past. (10) Hyperlipidemia: Status: Chronic Qualifiers: Hyperlipidemia type: mixed hyperlipidemia Qualified Code(s): E78.2 - Mixed hyperlipidemia (11) MIRELA (generalized anxiety disorder): Status: Acute Permanent problem details: Effexor worked in past, avoided due to HTN. (12) Hypothyroidism: Status: Chronic Qualifiers: Hypothyroidism type: acquired Qualified Code(s): E03.9 - Hypothyroidism, unspecified (13) COPD (chronic obstructive pulmonary disease) with chronic bronchitis: Status: Acute (14) Systolic congestive heart failure: Status: Chronic Qualifiers: Heart failure chronicity: chronic Qualified Code(s): I50.22 - Chronic systolic (congestive) heart failure (15) GERD (gastroesophageal reflux disease): Status: Chronic Qualifiers: Esophagitis presence: without esophagitis Qualified Code(s): K21.9 - Gastro-esophageal reflux disease without esophagitis (16) Hypertension: Status: Acute Qualifiers: Hypertension type: essential hypertension Qualified Code(s): I10 - Essential (primary) hypertension Permanent problem details: Patient has a history of longstanding hypertension Reason for Visit Reason for Visit: CONFUSION, SLURRED SPEECH Hospital Course Hospital Course History as per H&P: Sarika Banegas is a 76 year old female with a past medical history of COVID-19 pneumonia hospitalized for a month requiring intubation, placement to long-term care facility, now at home, history of COPD, obstructive sleep apnea, history of ischemic cardiomyopathy, EF of 30%, had a stent placement and occluded graft on aspirin and Plavix, history of CABG in 2009, carotid artery disease, hypothyroidism, hypertension, GERD, who presents to [facility] due to word finding difficulty.? Patient tells me that last night she was playing a game on her phone, when she just did not feel right, she felt that she just was in all there while playing the game, she felt like something was in her right with her, but nonetheless she went to bed.? This was roughly at 10 PM, 04/02/2021.? In the morning she woke up, she again did not feel right she cannot exactly pinpoint what it was, she took a shower, and then her caregiver told her to go and sit on a chair, she tells me that she was trying to sit on a chair but she just could not send in until her caregiver came over and actually sat her down in the chair.? And when they started conversing, she noticed that she had word finding difficulty, no slurring of her words, no paresthesias, no facial droop, no visual deficits, no focal neurologic deficits she just had trouble finding words.? The symptoms persisted so she came to [facility] for further evaluation, NIH stroke scale 3, she was found to be more than 24 hours out of her stroke window, is on aspirin and Plavix, statin, her CT of the head was negative for acute stroke.? Hospitalist team was called for admission.? She tells me that she does have a history of severe carotid artery stenosis, they are medically managing it, with aspirin and Plavix. Hospital course: Patient was admitted to the hospital for further evaluation for stroke. She underwent CT head along with CTA head and neck which confirmed a lacunar infarct along with right proximal ICA near-total occlusion. Patient has been continued on her home dose of aspirin, Plavix, statins. Patient does not have any focal deficits. Her speech has been improving during admission. She was seen by physical therapy, Occupational Therapy, speech therapy. Unfortunately Dr. Zavala/cardiothoracic surgery was not available for next 1 week. Patient's care was discussed in detail with herself and she was explained in detail regarding need to follow-up with cardiothoracic surgery as an outpatient for further work- up and management of ICA occlusion with possible endarterectomy. Patient verbalized understanding. Patient is to make an appointment with Dr. Zavala as an outpatient. She was explained in detail for closer blood pressure check and monitoring at home. Her antihypertensives have been adjusted. Patient will continue with her outpatient in-home services will follow further 3 to 4 hours daily. She is to follow-up with a primary care provider within next [address] Good within next 2 weeks. Physical Exam Const: COMMON NORMALS: no acute distress and patient oriented x3 HENMT: COMMON NORMALS: normocephalic HEAD & SCALP: normocephalic Eye: COMMON NORMALS: Equal, round and reactive pupils present and EOMs intact bilaterally PUPIL: Yes Equal, round and reactive pupils present Neck/C-Spine: COMMON NORMALS: full ROM and no JVD Resp: COMMON NORMALS: normal respiratory effort, No retractions, No use of accessory muscles and clear to auscultation bilaterally AUSCULTATION: clear to auscultation bilaterally Cardio: COMMON NORMALS: no JVD, regular rate, regular rhythm, S1 normal heart sound present and S2 normal heart sound present RATE: regular rate RHYTHM: regular rhythm HEART SOUNDS: S1 normal heart sound present and S2 normal heart sound present GI: COMMON NORMALS: Normal to inspection, nondistended, normoactive bowel sounds present, Soft to palpation, non-tender, No hepatosplenomegaly present, no masses and no bruits PALPATION: Yes Soft to palpation and Yes No hepatosplenomegaly present Extremity: COMMON NORMALS: capillary refill normal, no clubbing, cyanosis or edema, no calf tenderness and no pedal edema Neuro: COMMON NORMALS: patient oriented x3, CN's II-XII intact bilaterally, moves all extremities, no focal motor deficits and no sensory deficits noted Psych: COMMON NORMALS: mental status grossly normal Discharge Data Studies Completed and Pending Completed Studies During Hospitalization Category Date Time Status CT angio head neck [CT angio headneck* [id number]] Cat Scan 04/03/21 23:[address] head wo con* [id number] Stat Cat Scan 04/03/21 17:07 Completed CXRP [XR chest 1V portable [id number]] Stat Exams 04/03/21 19:31 Completed Pending at discharge Category Date Time Status Basic Metabolic Panel AM LABS Lab 04/05/21 04:00 Ordered Basic Metabolic Panel AM LABS Lab 04/06/21 04:00 Ordered Blood Culture Routine Lab 04/03/21 23:59 Results Complete Blood Count w/Auto AM LABS Lab 04/05/21 04:00 Ordered Complete Blood Count w/Auto AM LABS Lab 04/06/21 04:00 Ordered Magnesium AM LABS Lab 04/05/21 04:00 Ordered Magnesium AM LABS Lab 04/06/21 04:00 Ordered Phosphorus AM LABS Lab 04/05/21 04:00 Ordered Phosphorus AM LABS Lab 04/06/21 04:00 Ordered Urine Culture Stat Lab 04/03/21 17:52 Results Radiology Impressions Head CT 04/03/21 17:07 IMPRESSION: 1. No acute intracranial abnormality. 2. Moderate diffuse cerebral atrophy and sequela of chronic small vessel ischemic disease. Chest X-Ray 04/03/21 19:31 IMPRESSION: No acute findings. Head/Neck CTA 04/03/21 23:34 IMPRESSION: 1. No large vessel occlusion or stenosis. 2. Focal decreased attenuation in the left caudate head and basal ganglia which may be secondary to a lacunar infarct. IMPRESSION: 1. The examination is limited by patient motion. 2. Near occlusion of the right proximal ICA by calcified plaque. 3. Origin of the right vertebral artery is not visualized due to motion. However, the remainder of the artery is patent. REFERENCES: NASCET CRITERIA. The degree of internal carotid artery stenosis is based on NASCET criteria. Normal is no stenosis. Mild is less than 50% stenosis. Moderate is 50-69% stenosis. Severe is 70% to 99% stenosis. Total occlusion is no detectable patent lumen. ADDENDUM: 04/04/21 0214 Findings were acknowledged as seen in the report by JORDEN JAMA on 04/04/2021 2:13 AM POWER SYSTEM OPERATOR. The findings were acknowledged and understood. Laboratory Results WBC 8.5 10^3/uL (4.0-10.0) 04/04/21 04:00 RBC 4.76 10^6/uL (4.1-5.3) 04/04/21 04:00 Hgb 13.5 g/dL (11.5-15.3) 04/04/21 04:00 Hct 41.7 % (37.0-47.0) 04/04/21 04:00 MCV 87.6 fl (81-99) 04/04/21 04:00 MCH 28.4 pg (28.0-34.0) 04/04/21 04:00 MCHC 32.4 g/dL (30.0-36.0) 04/04/21 04:00 RDW 12.7 % (12.1-15.1) 04/04/21 04:00 Plt Count 213 10^3/cmm (130-400) 04/04/21 04:00 MPV 10.8 fL (7.4-10.4) H 04/04/21 04:00 Neut % (Auto) 68.2 % 04/04/21 04:00 Lymph % (Auto) 15.9 % 04/04/21 04:00 [place] % (Auto) 8.9 % 04/04/21 04:00 Eos % (Auto) 5.7 % 04/04/21 04:00 Baso % (Auto) 0.7 % 04/04/21 04:00 Neut # (Auto) 5.78 10^3/uL (1.8-7.7) 04/04/21 04:00 Lymph # (Auto) 1.4 10^3/uL (0.8-4.8) 04/04/21 04:00 [place] # (Auto) 0.8 10^3/uL (0.2-0.9) 04/04/21 04:00 Eos # (Auto) 0.5 10^3/uL (0.0-0.8) 04/04/21 04:00 Baso # (Auto) 0.1 10^3/uL (0.0-0.1) 04/04/21 04:00 Nucleated RBC % (auto) 0 % 04/04/21 04:00 Nucleated RBCs # 0.0 /100WBC 04/04/21 04:00 PT 13.20 SECONDS (12.1-14.9) 04/03/21 17:52 INR 0.97 (0.8-1.2) 04/03/21 17:52 APTT 28.8 SECONDS (23.9-36.7) 04/03/21 17:52 Sodium 138 mmol/L (136-145) 04/04/21 04:00 Potassium 3.4 mmol/L (3.5-5.1) L 04/04/21 04:00 Chloride 101 mmol/L (98-107) 04/04/21 04:00 Carbon Dioxide 23 mmol/L (22-29) 04/04/21 04:00 Anion Gap 17.4 (5-19) 04/04/21 04:00 BUN 12 mg/dL (8-23) 04/04/21 04:00 Creatinine 0.6 mg/dL (0.5-0.9) 04/04/21 04:00 GFR Calculation Not Reportable 04/04/21 04:00 Glucose 95 mg/dL (65-115) 04/04/21 04:00 POC Glucose 104 mg/dL (70-110) 04/03/21 18:09 Estimat Average Glucose 108 04/04/21 04:00 Hemoglobin A1c 5.4 % (4.0-6.0) 04/04/21 04:00 Calculated Osmolality 286 mOsm/kg (285-295) 04/04/21 04:00 Calcium 9.8 mg/dL (8.5-10.5) 04/04/21 04:00 Phosphorus 3.0 mg/dL (2.5-4.5) 04/04/21 04:00 Magnesium 2.2 mg/dL (1.7-2.3) 04/04/21 04:00 Total Bilirubin 0.4 mg/dL (0.15-1.2) 04/03/21 17:52 AST 51 U/L (0-32) H 04/03/21 17:52 ALT 45 U/L (0-33) H 04/03/21 17:52 Alkaline Phosphatase 104 IU/L (35-105) 04/03/21 17:52 NT-Pro-B Natriuret Pep 283 pg/mL (0-125) H 04/03/21 17:52 Total Protein 8.0 g/dL (6.6-8.7) 04/03/21 17:52 Albumin 4.3 g/dL (3.5-5.2) 04/03/21 17:52 Globulin 3.7 g/dL (1.3-4.6) 04/03/21 17:52 Triglycerides 90 mg/dL (0-150) 04/04/21 04:00 Cholesterol 184 mg/dL (0-200) 04/04/21 04:00 LDL Cholesterol, Calc 122 mg/dL (50-129) 04/04/21 04:00 HDL Cholesterol 44 mg/dL (60-100) L 04/04/21 04:00 LDL/HDL Ratio 2.77 RATIO (0.00-3.22) 04/04/21 04:00 Cholesterol/HDL Ratio 4.18 mg/dL (0.0-4.40) 04/04/21 04:00 TSH 3.26 uIU/mL (0.27-4.20) 04/03/21 19:53 Urine Color Yellow (Yellow) 04/03/21 17:52 Urine Appearance Sl cloudy (CLEAR) A 04/03/21 17:52 Urine pH 8 (5-7) H 04/03/21 17:52 Ur Specific [place] 1.010 (1.005-1.030) 04/03/21 17:52 Urine Protein Neg (Negative) 04/03/21 17:52 Urine Glucose (UA) Norm (Normal) 04/03/21 17:52 Urine Ketones Negative (Negative) 04/03/21 17:52 Urine Blood 2+ (Negative) H 04/03/21 17:52 Urine Nitrate Negative (Negative) 04/03/21 17:52 Urine Bilirubin Neg (Negative) 04/03/21 17:52 Prot Sulfosalicylic Acd Negative (Negative) 04/03/21 17:52 Urine Urobilinogen Neg mg/dL (Negative) 04/03/21 17:52 Ur Leukocyte Esterase 1+ (Negative) H 04/03/21 17:52 Urine RBC 0-4 /hpf (0-2) H 04/03/21 17:52 Urine WBC 5-10 /hpf (0-5) H 04/03/21 17:52 Ur Squamous Epith Cells 0-4 /hpf (0-5) H 04/03/21 17:52 Amorphous Sediment Not Reportable 04/03/21 17:52 Urine Bacteria 1+ /hpf (NONE) H 04/03/21 17:52 Urine Opiates Screen Negative ng/mL (Negative) 04/03/21 17:52 Ur Barbiturates Screen Negative ng/mL (Negative) 04/03/21 17:52 Ur Phencyclidine Scrn Negative ng/mL (Negative) 04/03/21 17:52 Ur Amphetamines Screen Negative ng/mL (Negative) 04/03/21 17:52 U Benzodiazepines Scrn Negative ng/mL (Negative) 04/03/21 17:52 Urine Cocaine Screen Negative ng/mL (Negative) 04/03/21 17:52 U Marijuana (THC) Screen Negative ng/mL (Negative) 04/03/21 17:52 Vitals Last Vital Signs Temp 98.3 F 04/03/21 17:24 Pulse 103 H 04/04/21 10:34 Resp 20 H 04/04/21 10:34 BP 151/77 04/04/21 10:34 Pulse Ox 94 04/04/21 10:34 Discharge Plan Discharge Patient Disposition: Home Condition: Stable Prescriptions: Continued nitroglycerin 0.4 mg tablet, sublingual 0.4 mg SUBLINGUAL Q5M PRN (Reason: Chest Pain) Qty: 20 0RF Rx Instructions: may adjust quantity as needed for bottle size old nitro docusate sodium 100 mg capsule 100 mg PO BEDTIME 0RF diphenhydramine HCl [Allergy (diphenhydramine)] 25 mg capsule 25 mg PO QID PRN (Reason: Allergic Reaction) 0RF acetic acid 0.25 % solution 60 ml irrigation BID Qty: 8000 0RF Rx Instructions: for urinary catheter flush rosuvastatin 5 mg tablet 5 mg PO DAILY 90 Days Qty: 90 3RF potassium chloride 8 mEq tablet extended release 8 meq PO TID 30 Days Qty: 90 5RF pantoprazole 40 mg tablet,delayed release (DR/EC) 40 mg PO DAILY 90 Days Qty: 90 1RF naproxen 375 mg tablet See Rx Instructions .ROUTE .COMPLEX Qty: 90 5RF Dose Instruction: TAKE 1 TABLET BY MOUTH 3 TIMES A DAY NEEDED FOR PAIN MAX DAILY DOSE 3 TABLETS Rx Instructions: TAKE 1 TABLET BY MOUTH 3 TIMES A DAY NEEDED FOR PAIN MAX DAILY DOSE 3 TABLETS losartan 25 mg tablet 25 mg PO DAILY 90 Days Qty: 90 1RF hydroxyzine HCl 25 mg tablet 25 mg PO BID PRN (Reason: anxiety) 90 Days Qty: 90 1RF Lasix 40 mg tablet 40 mg PO DAILY 90 Days Qty: 90 1RF duloxetine 20 mg capsule,delayed release(DR/EC) 20 mg PO BID 90 Days Qty: 180 1RF miscellaneous medical supply Misc See Rx Instructions miscellaneous .COMPLEX Qty: 1 0RF Rx Instructions: Motorized scooter/wheelchair miscellaneous; miscellaneous medical supply Misc See Rx Instructions miscellaneous DAILY MDD 6 30 Days Qty: 180 11RF Rx Instructions: Disposable underwear, maximum absorbance, size xlarge miscellaneous daily; miscellaneous medical supply Misc 1 each miscellaneous .PRN Qty: 1 0RF Rx Instructions: Compression Juzo 6000 [employer] Max Calf size XL for right leg Calf 50 cm Ankle 29 cm miscellaneous medical supply Misc 1 each miscellaneous .PRN Qty: 1 0RF Rx Instructions: Compressions Juzo 6000 [employer] Size Max Calf size 2XL for left leg Calf -58 cm Ankle-32 cm ipratropium-albuterol 0.5 mg-3 mg(2.5 mg base)/3 mL solution for nebulization 3 ml inhalation Q6H PRN (Reason: wheezing) Qty: 360 11RF Yupelri 175 mcg/3 mL solution for nebulization 175 mcg inhalation DAILY Qty: 90 11RF albuterol sulfate [ProAir HFA] 90 mcg/actuation HFA aerosol inhaler 2 puff INHALATION Q6H PRN (Reason: Shortness Of Breath) 90 Days Qty: 18 5RF formoterol fumarate [Perforomist] 20 mcg/2 mL solution for nebulization 2 ml inhalation BID@,20 0RF cholecalciferol (vitamin D3) 50 mcg (2,000 unit) capsule 50 mcg PO QAM 0RF aspirin 325 mg Tablet 325 mg PO QAM 0RF clopidogrel 75 mg tablet 75 mg PO QAM 0RF famotidine 20 mg tablet 20 mg PO QPM 0RF amlodipine 10 mg tablet 10 mg PO QAM 0RF levothyroxine 50 mcg tablet 50 mcg PO QAM 0RF ferrous sulfate 325 mg (65 mg iron) Tablet 325 mg PO DAILY 0RF ropinirole 0.5 mg tablet 1 mg PO BEDTIME 0RF oxybutynin chloride 5 mg tablet 5 mg PO TID 0RF Flonase 50 mcg/actuation [place],Suspension 2 spray INTRANASAL DAILY PRN (Reason: Allergy Symptoms) 0RF Rx Instructions: administer into each nostril metoprolol tartrate 25 mg tablet 25 mg PO BID 0RF Discharge Orders: Discharge Order (Routine); Ordered 04/04/21 Ordered By: Kobe Menjivar Referrals: Kayce Good MD [Physician] - 2 weeks Cy Zavala MD [Physician] - 7-10 days Camille Granados MD [Primary Care Provider] - 4-7 days Discharge Diet: Cardiac Discharge Activity: Resume usual activity and Increase activity as tolerated Patient Instructions: Opioid Safety Discharge Attestations Time Spent in Discharge Care*: greater than 30 min Specific Discharge Activities: educating patient, discussing with pcp/other providers, discussing with correctional case manager/social workers/dc planners, documenting/other paperwork and evaluating patient/reviewing data Status at Discharge: Cognitive status at discharge: cognitively intact , Behavioral status at discharge: cooperative , Functional status at discharge: uses cane/walker , Overall status at discharge: patient is back to baseline Quality Metrics Clinical Quality Measures [ Cerebrovascular Accident { Contraindication to Antithrombotic: None; antithrombotic prescribed; Contraindication to Anticoagulation: Overlap treatment not indicated; Contraindication to Statin: None; Statiin prescribed; Contraindication to tPA: Did not meet criteria;}] Coding Level of Care Code Acute [facility] DC note Diagnoses Cerebrovascular accident I63.9 Restless leg syndrome G25.81 Atherosclerosis of coronary artery of [place] heart without angina pectoris I25.10 Coronary Disease-Associated Artery/Lesion type: [place] artery Aortic valve stenosis I06.0 Cardiac valve disease etiology: rheumatic Obstructive sleep apnea G47.33 Atherosclerotic heart disease of [place] coronary artery without angina pectoris I25.10 [place] vs. transplanted heart: [place] heart Carotid stenosis, asymptomatic I65.23 Laterality: bilateral Chronic pain syndrome G89.4 Insomnia F51.04 Insomnia type: psychophysiologic Hyperlipidemia E78.2 Hyperlipidemia type: mixed hyperlipidemia MIRELA (generalized anxiety disorder) F41.1 Hypothyroidism E03.9 Hypothyroidism type: acquired COPD (chronic obstructive pulmonary disease) with chronic bronchitis J44.9 Systolic congestive heart failure I50.22 Heart failure chronicity: chronic GERD (gastroesophageal reflux disease) K21.9 Esophagitis presence: without esophagitis Hypertension I10 Hypertension type: essential hypertension
--- NOTE | 2021-04-04 11:30 | PC.NURSE ---
Pt has non-formulary medications ordered. RN called pharmacy, this means that we do not carry them in the hospital per pharmacy. Pt has potassium chloride, nystatin and perforomist ordered and these medications are all non-formulary. Patient has not received these medications due to not having access to them.
--- NOTE | 2021-04-04 11:51 | DCPLANNER ---
Addendum entered by Heather Raines 05/04/21 09:42: Patient had a follow up appointment scheduled for 04.19.21 with [facility], Dr. Zavala - patient did attend appointment. Patient had a follow up appointment scheduled for 05.02.[address] Good - patient did attend appointment. Addendum entered by Heather Raines 04/12/21 16:56: Patient had a follow up appointment scheduled for 04.09.[address] Granados - patient did attend appointment. Patient had a follow uop appointment scheduled for 04.12.21 with [facility] - appointment was rescheduled for 04.19.[address] Zavala. Original Note: interactive media project manager was asked to schedule several follow up appointments for patient, with primary care, Dr. Zavala, and Dr. Good. interactive media project manager called primary care physician, Dr. Granados - follow up appointment is scheduled for Friday, April 09, 2021 at 8:30 with . interactive media project manager called [facility], spoke with Camille, gave clinic patients information. A follow up appointment was scheduled for April at 2:[address] Zavala. interactive media project manager called the office of Dr. Good, spoke with Cally, gave clinic patients information. A follow up appointment was scheduled for Sunday, May 02, 2021 at 10:[address] Good. Patients appointments were added to her discharge paperwork.
--- NOTE | 2021-04-04 14:33 | PC.NURSE ---
PT PLACED IN [facility] BED DUE TO BEDS BEING NEEDED IN ER. PT AWAITING MEDICARE RIDE. SHOULD BE HERE AROUND 1730.
== END 2021-04-04 17:56 | disposition home or self-care (01) ==
LOC: ER 20:28 → ER IP 04-04 01:05
PROVIDERS: Family Medicine; Admitting Provider Family Medicine; Emergency Provider Emergency Medicine; PCP Family Medicine; Visit Provider Student in an Organized Health Care Education/Training Program
DX: I63.9 Cerebral infarction, unspecified (principal); R29.703 NIHSS score 3; G25.81 Restless legs syndrome; I25.10 Atherosclerotic heart disease of native coronary artery without angina pectoris; I06.0 Rheumatic aortic stenosis; G47.33 Obstructive sleep apnea (adult) (pediatric); I65.23 Occlusion and stenosis of bilateral carotid arteries; G89.4 Chronic pain syndrome; F51.04 Psychophysiologic insomnia; E78.2 Mixed hyperlipidemia; F41.1 Generalized anxiety disorder; J44.9 Chronic obstructive pulmonary disease, unspecified; I50.22 Chronic systolic (congestive) heart failure; K21.9 Gastro-esophageal reflux disease without esophagitis; I10 Essential (primary) hypertension; Z86.16 Personal history of COVID-19; Z82.49 Family history of ischemic heart disease and other diseases of the circulatory system; Z83.3 Family history of diabetes mellitus; Z95.1 Presence of aortocoronary bypass graft; Z87.891 Personal history of nicotine dependence
CPT/HCPCS: 36415; 36416; 70450; 70496; 70498; 71045; 80048; 80053; 80061; 80306; 81001; 82962; 83036; 83735; 83880; 84100; 84443; 85025; 85610; 85730; 87040; 87077; 87086; 87186; 92523; 93005; 96372; 96374; 97162; 97165; 99285; G0378; J1650; J7030; Q9967

== ENCOUNTER 2021-06-15 11:34 | Outpatient (CLI) | payer MEDICARE, MEDICAID, SELFPAY ==
--- NOTE | 2021-06-15 12:00 | USCV_ITS ---
Sarika Banegas Age: 76 Gender: F : 1945 Exam Date: 06/15/2021 11:47 Ordering Phys: Lily Marquez MD ([email or web address]) Technologist: Catracho Holcomb [place] [facility] [place]: murmur cad BP: 117 / 76 HR: 92 Rhythm: Sinus Technical Quality: Adequate MEASUREMENTS (Male / Female) Normal Values 2D ECHO LV Diastolic Diameter PLAX 4.1 cm 4.2 - 5.9 / 3.9 - 5.3 cm LV Systolic Diameter PLAX 2.9 cm IVS Diastolic Thickness 1.0 cm 0.6 - 1.0 / 0.6 - 0.9 cm IVS Systolic Thickness 1.4 cm LVPW Diastolic Thickness 1.1 cm 0.6 - 1.0 / 0.6 - 0.9 cm LVPW Systolic Thickness 1.3 cm LVOT Diameter 2.0 cm LV Ejection Fraction 2D Teich 57.0 % LV Ejection Fraction MOD 2C 69.4 % LV Ejection Fraction 2C AL 68.8 % LA Diameter 3.8 cm M-MODE Aortic Annulus Diameter 2.2 cm LA Ao Ratio MM 1.7 MV E Point Septal Separation 1.4 cm DOPPLER AV Peak Velocity 291.3 cm/s LVOT Peak Velocity 120.0 cm/s AV Area Cont Eq vti 1.9 cm squared AV Area Cont Eq pk 1.3 cm squared MV Area PHT 5.0 cm squared Mitral E to A Ratio 0.8 MV E' Velocity 90.5 cm/s Mitral E to MV E' Ratio 26.1 Mitral E to LV E' Lateral Ratio 31.2 Mitral E to LV E' Septal Ratio 22.7 TR Peak Velocity 162.7 cm/s TR Peak Gradient 10.6 mmHg Right Atrial Pressure 3.0 mmHg Pulmonary Artery Systolic Pressu 13.6 mmHg PV Peak Velocity 100.0 cm/s FINDINGS Left Ventricle Normal left ventricular size and systolic function, EF 65 %. Mild left ventricular hypertrophy. No regional wall motion abnormalities. Grade I/IV diastolic dysfunction (abnormal relaxation filling pattern), normal to mildly elevated filling pressures. Right Ventricle The right ventricle is normal in size and function. Right Atrium The right atrium is normal in size. Left Atrium Mildly increased left atrial size. Mitral Valve Thickened mitral valve. Moderate to heavy mitral annular calcification. Aortic Valve Mild to moderate aortic valve regurgitation. Mild aortic valve stenosis, mean gradient 14.4 mmHg, ANDRIY 1.9 cm squared. Tricuspid Valve Could not be visualized well. Pulmonic Valve Pulmonic valve not well visualized. Pericardium Normal pericardium without effusion. Aorta Normal ascending aorta dimension. CONCLUSIONS Normal left ventricular size and systolic function, EF 65 %. Mild left ventricular hypertrophy. No regional wall motion abnormalities. Grade I/IV diastolic dysfunction (abnormal relaxation filling pattern), normal to mildly elevated filling pressures. Mildly increased left atrial size. Thickened mitral valve. Moderate to heavy mitral annular calcification. Mild aortic valve stenosis, mean gradient 14.4 mmHg, ANDRIY 1.9 cm squared. Mild to moderate aortic valve regurgitation. There is no pericardial effusion. There are no intracardiac masses. Possibly normal PA pressure Compared to the study from 01/26/2020, there is development of aortic valve stenosis Dr Lily Marquez MD [facility] (Electronically Signed) Final Date: 15 June 2021 18:13 S
--- NOTE | 2021-06-15 12:08 | XR_ITS ---
WS: [id number] XR hip RT 2-3V wo/w pel* [id number] REASON FOR EXAM: M25.551 - Pain in right hip FINDINGS: No fracture or focal bone lesion. Severe osteoarthropathy of the right hip with obliteration of the superior joint space. [id number] with flattening of the femoral head and extensive subchondral sclerosis and cystic change in the acet abulum and femoral head. Large osteophytes of the acetabulum and femoral head. XR/XR hip RT 2-3V wo/w pel* [id number] IMPRESSION: Severe osteoarthritis of the right hip as above.
== END 2021-06-15 11:35 | disposition home or self-care (01) ==
LOC: RAD 11:36
PROVIDERS: PCP Family Medicine; Visit Provider Internal Medicine Cardiovascular Disease
DX: R06.00 Dyspnea, unspecified (principal); M16.11 Unilateral primary osteoarthritis, right hip; I08.0 Rheumatic disorders of both mitral and aortic valves
CPT/HCPCS: 73502; 93306

== ENCOUNTER → 2021-07-18 13:29 | Outpatient (BNVA) | payer MEDICARE, MEDICAID, SELFPAY | PROVIDERS: PCP Family Medicine; Visit Provider Thoracic Surgery (Cardiothoracic Vascular Surgery) | DX: I96 Gangrene, not elsewhere classified (principal); L89.312 Pressure ulcer of right buttock, stage 2; L89.322 Pressure ulcer of left buttock, stage 2; L89.892 Pressure ulcer of other site, stage 2; Z87.891 Personal history of nicotine dependence | CPT/HCPCS: 97597; 97598; 99212; A6252; A6253 ==

== ENCOUNTER 2021-10-08 14:36 | Emergency (ER) | payer MEDICARE, MEDICAID, SELFPAY ==
[2021-10-08] VITALS (7 sets, daily range): BP systolic 117–157; BP diastolic 73–89; PULSE 92–108; RESP 16–18; TEMP 36.7; O2SAT 92–96; BMI 29.2
[2021-10-08 16:44] LABS: Urine Appearance Bloody (CLEAR); Urine Color Red (Yellow)
[2021-10-08 16:46] LABS: Add Urine Culture? Yes; Add Urine Microscopic? YES; Bacteria Urine 2+ /hpf; RBC Urine TOO NUMEROUS TO CNT /hpf (0-2); Squamous Epithelial Cell Urine RARE /hpf (0-5); WBC Urine 0-4 /hpf (0-5)
--- NOTE | 2021-10-08 18:45 | CTR_ITS ---
PROCEDURE INFORMATION: Exam: CT Abdomen And Pelvis Without Contrast Exam date and time: 10/08/2021 8:06 PM Age: 76 years old Clinical indication: Other: Hematuria; Abdominal pain; Prior surgery; Surgery type: Cabg. Gb. Hysterectomy. Patient HX: C/O bilateral flank pain. Blood in rai. TECHNIQUE: Imaging protocol: Computed tomography of the abdomen and pelvis without contrast. Radiation optimization: All CT scans at this facility use at least one of these dose optimization techniques: automated exposure control; mA and/or kV adjustment per patient size (includes targeted exams where dose is matched to clinical indication); or iterative reconstruction. COMPARISON: CR XR hip RT 2-3V wo/w pel* [id number] 06/15/2021 12:08 PM RADIATION DOSE METRICS: Total DLP (mGy-cm): 1001.67 FINDINGS: Diaphragm: Small hiatal hernia. Liver: Hepatic steatosis. Gallbladder and bile ducts: Cholecystectomy. Pancreas: Normal. No ductal dilation. Spleen: Normal. No splenomegaly. Adrenal glands: Normal. No mass. Kidneys and ureters: Dilation of both renal collecting systems and ureters is noted. Stomach and bowel: Colonic and duodenal diverticula noted. No evident pericolic inflammatory change. No findings of abnormal bowel distention. Appendix: No evidence of appendicitis. Intraperitoneal space: Unremarkable. No free air. No significant fluid collection. Vasculature: Vascular calcifications are noted. No abdominal aortic aneurysm. Lymph nodes: Unremarkable. No enlarged lymph nodes. Urinary bladder: High density material seen dependently within the urinary bladder likely represents blood products. Underlying mucosal abnormality would be difficult to detect in this setting. Rai catheter is well positioned within the urinary bladder. There is some stranding/edema of the fat adjacent to the urinary bladder. Visualized portions of urinary bladder wall show normal thickness. Reproductive: Hysterectomy. Bones/joints: Advanced asymmetric degenerative change at right femoroacetabular joint. No acute bony findings. Soft tissues: Supraumbilical hernia contains relatively long segment of small bowel. CT/CT kidney stone [id number] IMPRESSION: Dependent portions of urinary bladder contain moderate to large quantities of dense material suspected to represent blood products. There is associated diffuse dilation of ureters and renal collecting systems bilaterally suggesting component of obstructive uropathy at the urinary bladder level. Ventral hernia containing small bowel that does not appear obstructed. Fatty liver.
--- NOTE | 2021-10-08 19:03 | W.ED.FEMALGU ---
HPI - Female Genitourinary General: Chief complaint: Urogenital-Female Stated complaint: BLOOD IN URINARY CATHETER Time Seen by Provider: 10/08/21 18:41 Source: patient and EMS Mode of arrival: EMS Limitations: no limitations History of Present Illness: 76-year-old female who had a chronic indwelling Warren states she has had Warren's for over a year she states that she noticed some blood out of her Warren along with some blood clots that started today. She had some slight flank and abdominal pain she rates a 2 out of 10 she is not on the blood thinners besides Plavix she denies any worsening improving factors denies any fevers. Associated symptoms: Reports abdominal pain; Deny headache(s) Review of Systems Const: Denies: fever(s), chills, body aches or change in appetite Eyes: Denies: blurry vision or eye discomfort ENMT: Denies: throat pain or dental pain Card: Denies: chest pain Resp: Denies: dyspnea GI: Reports: abdominal pain : Reports: hematuria Musc: Denies: neck pain or back pain Skin/Breast: Denies: rash Neuro: Denies: headache(s) Psych: Denies: depression Te/Lymph: Denies: easy bruising All/Imm: Denies: urticaria PFSH ED PFSH: Medical History (Updated 10/08/21 @ 22:18 by Paulie Peña MD) Allergic rhinitis Aortic valve stenosis Atherosclerosis of coronary artery of [place] heart without angina pectoris Atherosclerotic heart disease of [place] coronary artery without angina pectoris Carotid stenosis, asymptomatic Chronic pain syndrome We may consider restarting tramadol for as needed use only in the future. COPD (chronic obstructive pulmonary disease) with chronic bronchitis Coronary artery disease Warren catheter in place MIRELA (generalized anxiety disorder) Effexor worked in past, avoided due to HTN. GERD (gastroesophageal reflux disease) Hyperlipidemia Hypertension Patient has a history of longstanding hypertension Hypothyroidism Insomnia Failed trazodone in past. Mixed incontinence urge and stress NSTEMI (non-ST elevated myocardial infarction) Obesity Obstructive sleep apnea Osteoarthritis Overactive bladder Peripheral vascular disease Personal history of poliomyelitis Polyuria Restless leg syndrome Sleep apnea Subclavian artery disease Systolic congestive heart failure Urgency incontinence Surgical History H/O hernia repair H/O: hysterectomy History of cholecystectomy Hx of CABG Stented coronary artery Family History Mother CAD (coronary artery disease) Diabetes Daughter CAD (coronary artery disease) Hypertension Son CAD (coronary artery disease) Family/Other Cancer Chronic kidney disease (CKD) Diabetes Suicide Denies family history of Clotting disorder Dementia Anesthesia complication Bleeding disorder Lung disease Stroke Social History Smoking and tobacco status: former smoker Quit status (tobacco): has quit using tobacco Year quit tobacco: 2009 - 3PPD x 35 Years Second hand smoke exposure: No Smoking risk assessment/counseling performed?: No Alcohol intake: never Counseling given: No Counseling given: No Lives independently: Yes Household members: none Housing: Apartment Marital status: / Current occupational status: retired and disabled History of recent travel: No Current gender identity: Female Female Reproductive History: Spontaneous abortions: No Physical Exam Const: COMMON NORMALS: no acute distress, patient oriented x3 and healthy appearing HENMT: COMMON NORMALS: normocephalic and atraumatic HEAD & SCALP: normocephalic and atraumatic Eye: COMMON NORMALS: Equal, round and reactive pupils present and EOMs intact bilaterally PUPIL: Yes Equal, round and reactive pupils present Neck/C-Spine: COMMON NORMALS: full ROM and supple Chest: COMMONS NORMALS: normal inspection of the chest and normal palpation of entire chest wall Resp: COMMON NORMALS: normal respiratory effort, No retractions, No use of accessory muscles and clear to auscultation bilaterally AUSCULTATION: clear to auscultation bilaterally Cardio: COMMON NORMALS: regular rate, regular rhythm and No murmurs present (Cardio) RATE: regular rate RHYTHM: regular rhythm GI: COMMON NORMALS: Normal to inspection, nondistended, normoactive bowel sounds present, Soft to palpation, non-tender and no masses PALPATION: Yes Soft to palpation : OTHER: Warren in place slight blood present in Warren Extremity: COMMON NORMALS: normal to inspection and full ROM Neuro: COMMON NORMALS: patient oriented x3, moves all extremities and no focal motor deficits Psych: COMMON NORMALS: mental status grossly normal, Normal thought process present and cooperative THOUGHT PROCESS: Normal thought process present Skin: COMMON NORMALS: no rashes or lesions noted and no wounds GENERAL SKIN EXAM: no rashes or lesions noted Course Vital Signs: Vital signs: Vital Signs Temperature 98.0 F 10/08/21 15:33 Pulse Rate 92 10/08/21 18:51 Respiratory Rate 18 10/08/21 18:51 Blood Pressure 157/86 10/08/21 18:51 Pulse Oximetry 92 10/08/21 18:51 Oxygen Delivery Me thod 10/08/21 18:51 MDM - Female Medical Decision Making Patient presents here with hematuria along with passing blood clots we irrigated her bladder thoroughly and she is still passing blood clots CT scan shows large amount of blood as well with some hydronephrosis likely obstruction patient's urology is at [facility] I talked to the urologist there and will transfer there as we have no bed availability Lab Data : 10/08/21 19:30 10/08/21 19:30 Radiology Impressions Abdomen/Pelvis CT 10/08/21 18:45 IMPRESSION: Dependent portions of urinary bladder contain moderate to large quantities of dense material suspected to represent blood products. There is associated diffuse dilation of ureters and renal collecting systems bilaterally suggesting component of obstructive uropathy at the urinary bladder level. Ventral hernia containing small bowel that does not appear obstructed. Fatty liver. Laboratory Results WBC 12.7 10^3/uL (4.0-10.0) H 10/08/21 19:30 RBC 5.47 10^6/uL (4.1-5.3) H 10/08/21 19:30 Hgb 14.9 g/dL (11.5-15.3) 10/08/21 19:30 Hct 47.1 % (37.0-47.0) H 10/08/21 19:30 MCV 86.1 fl (81-99) 10/08/21 19:30 MCH 27.2 pg (28.0-34.0) L 10/08/21 19:30 MCHC 31.6 g/dL (30.0-36.0) 10/08/21 19:30 RDW 12.9 % (12.1-15.1) 10/08/21 19:30 Plt Count 282 10^3/cmm (130-400) 10/08/21 19:30 MPV 10.9 fL (7.4-10.4) H 10/08/21 19:30 Neut % (Auto) 87.4 % 10/08/21 19:30 Lymph % (Auto) 6.5 % 10/08/21 19:30 Waller % (Auto) 4.0 % 10/08/21 19:30 Eos % (Auto) 0.9 % 10/08/21 19:30 Baso % (Auto) 0.6 % 10/08/21 19:30 Neut # (Auto) 11.06 10^3/uL (1.8-7.7) H 10/08/21 19:30 Lymph # (Auto) 0.8 10^3/uL (0.8-4.8) 10/08/21 19:30 Waller # (Auto) 0.5 10^3/uL (0.2-0.9) 10/08/21 19:30 Eos # (Auto) 0.1 10^3/uL (0.0-0.8) 10/08/21 19:30 Baso # (Auto) 0.1 10^3/uL (0.0-0.1) 10/08/21 19:30 Nucleated RBC % (auto) 0 % 10/08/21 19:30 Nucleated RBCs # 0.0 /100WBC 10/08/21 19:30 PT 13.70 SECONDS (12.1-14.9) 10/08/21 19:30 INR 1.02 (0.8-1.2) 10/08/21 19:30 Sodium Cancelled 10/08/21 19:30 Potassium Cancelled 10/08/21 19:30 Chloride Cancelled 10/08/21 19:30 Carbon Dioxide Cancelled 10/08/21 19:30 Anion Gap Cancelled 10/08/21 19:30 BUN Cancelled 10/08/21 19:30 Creatinine Cancelled 10/08/21 19:30 GFR Calculation Cancelled 10/08/21 19:30 Glucose Cancelled 10/08/21 19:30 Calculated Osmolality Cancelled 10/08/21 19:30 Calcium Cancelled 10/08/21 19:30 Total Bilirubin Cancelled 10/08/21 19:30 AST Cancelled 10/08/21 19:30 ALT Cancelled 10/08/21 19:30 Alkaline Phosphatase Cancelled 10/08/21 19:30 Total Protein Cancelled 10/08/21 19:30 Albumin Cancelled 10/08/21 19:30 Globulin Cancelled 10/08/21 19:30 Lipase Cancelled 10/08/21 19:30 Urine Color Red (Yellow) 10/08/21 15:57 Urine Appearance Bloody (CLEAR) A 10/08/21 15:57 Urine pH TNP 10/08/21 15:57 Ur Specific Farber TNP 10/08/21 15:57 Urine Protein TNP 10/08/21 15:57 Urine Glucose (UA) TNP 10/08/21 15:57 Urine Ketones TNP 10/08/21 15:57 Urine Blood TNP 10/08/21 15:57 Urine Nitrate TNP 10/08/21 15:57 Urine Bilirubin TNP 10/08/21 15:57 Urine Urobilinogen TNP 10/08/21 15:57 Ur Leukocyte Esterase TNP 10/08/21 15:57 Urine RBC Too numerous to cnt /hpf (0-2) H 10/08/21 15:57 Urine WBC 0-4 /hpf (0-5) H 10/08/21 15:57 Ur Squamous Epith Cells Rare /hpf (0-5) 10/08/21 15:57 Amorphous Sediment Not Reportable 10/08/21 15:57 Urine Bacteria 2+ /hpf (NONE) H 10/08/21 15:57 Discharge Plan Discharge Patient Disposition: Xfer Short-Term Hosp Clinical Impression: Hematuria Condition: Stable Prescriptions: No Action nitroglycerin 0.4 mg tablet, sublingual 0.4 mg SUBLINGUAL Q5M PRN (Reason: Chest Pain) Qty: 20 0RF Rx Instructions: may adjust quantity as needed for bottle size old nitro docusate sodium 100 mg capsule 100 mg PO BEDTIME diphenhydramine HCl [Allergy (diphenhydramine)] 25 mg capsule 25 mg PO QID PRN (Reason: Allergic Reaction) acetic acid 0.25 % solution 60 ml irrigation BID Qty: 8000 0RF Rx Instructions: for urinary catheter flush miscellaneous medical supply Misc See Rx Instructions miscellaneous .COMPLEX Qty: 1 0RF Rx Instructions: Motorized scooter/wheelchair miscellaneous; albuterol sulfate [ProAir HFA] 90 mcg/actuation HFA aerosol inhaler 2 puff INHALATION Q6H PRN (Reason: Shortness Of Breath) 90 Days Qty: 18 5RF amlodipine 10 mg tablet 10 mg PO QAM 90 Days Qty: 90 1RF clopidogrel 75 mg tablet 75 mg PO QAM 90 Days Qty: 90 1RF famotidine 20 mg tablet See Rx Instructions .ROUTE .COMPLEX Qty: 90 1RF Dose Instruction: TAKE 1 TABLET BY MOUTH DAILY Rx Instructions: TAKE 1 TABLET BY MOUTH DAILY levothyroxine 50 mcg tablet See Rx Instructions .ROUTE .COMPLEX Qty: 90 1RF Dose Instruction: TAKE 1 TABLET BY MOUTH DAILY Rx Instructions: TAKE 1 TABLET BY MOUTH DAILY metoprolol tartrate 25 mg tablet 25 mg PO BID 90 Days Qty: 180 1RF losartan 25 mg tablet 25 mg PO DAILY 90 Days Qty: 90 1RF pantoprazole 40 mg tablet,delayed release (DR/EC) 40 mg PO DAILY 90 Days Qty: 90 1RF rosuvastatin 5 mg tablet 5 mg PO DAILY 90 Days Qty: 90 1RF ropinirole 1 mg tablet 1 mg PO BID 90 Days Qty: 180 1RF tramadol 50 mg tablet 50 mg PO DAILY 30 Days Qty: 30 0RF [employer] W[employer] Dressing Paste 1 applic topical DAILY Qty: 2039 2RF miscellaneous medical supply [facility] [place] See Rx Instructions miscellaneous DAILY MDD 6 30 Days Qty: 180 11RF Rx Instructions: Disposable underwear, maximum absorbance, size xlarge miscellaneous daily; miscellaneous medical supply [facility] 1 each miscellaneous .PRN Qty: 1 0RF Rx Instructions: Compression Juzo 6000 [employer] Max Calf size XL for right leg Calf 50 cm Ankle 29 cm miscellaneous medical supply [facility] 1 each miscellaneous .PRN Qty: 1 0RF Rx Instructions: Compressions Juzo 6000 [employer] Size Max Calf size 2XL for left leg Calf -58 cm Ankle-32 cm ipratropium-albuterol 0.5 mg-3 mg(2.5 mg base)/3 mL solution for nebulization 3 ml inhalation Q6H PRN (Reason: wheezing) Qty: 360 11RF Yupelri 175 mcg/3 mL solution for nebulization 175 mcg inhalation DAILY Qty: 90 11RF hydroxyzine HCl 25 mg tablet 25 mg PO BID PRN (Reason: anxiety) 30 Days Qty: 60 0RF naproxen 375 mg tablet See Rx Instructions .ROUTE .COMPLEX Qty: 90 0RF Dose Instruction: TAKE 1 TABLET BY MOUTH 3 TIMES A DAY NEEDED FOR PAIN MAX DAILY DOSE 3 TABLETS Rx Instructions: TAKE 1 TABLET BY MOUTH 3 TIMES A DAY NEEDED FOR PAIN MAX DAILY DOSE 3 TABLETS duloxetine 20 mg capsule,delayed release(DR/EC) 20 mg PO BID 90 Days Qty: 180 0RF potassium chloride 8 mEq tablet extended release 8 meq PO BID 90 Days Qty: 180 1RF furosemide 40 mg tablet See Rx Instructions .ROUTE .COMPLEX Qty: 90 3RF Dose Instruction: TAKE 1 TABLET BY MOUTH DAILY Rx Instructions: TAKE 1 TABLET BY MOUTH DAILY formoterol fumarate [Perforomist] 20 mcg/2 mL solution for nebulization 2 ml inhalation BID@11,20 cholecalciferol (vitamin D3) 50 mcg (2,000 unit) capsule 50 mcg PO QAM ferrous sulfate 325 mg (65 mg iron) Tablet 325 mg PO DAILY oxybutynin chloride 5 mg tablet 5 mg PO TID fluticasone propionate 50 mcg/actuation [place],Suspension 2 spray INTRANASAL DAILY PRN (Reason: Allergy Symptoms) Rx Instructions: administer into each nostril aspirin 325 mg tablet 81 mg PO QAM Referrals: Camille Granados MD [Primary Care Provider] - Coding Level of Care Code ED Roller Embosser for Chg Fwd Exam Comprehensive
[2021-10-08 19:52] LABS: Basophils # 0.1 10^3/uL (0.0-0.1); Basophils % 0.6 %; Eosinophils # 0.1 10^3/uL (0.0-0.8); Eosinophils % 0.9 %; Hematocrit 47.1 % (37.0-47.0); Hemoglobin 14.9 g/dL (11.5-15.3); Lymphocytes # 0.8 10^3/uL (0.8-4.8); Lymphocytes % 6.5 %; Mean Corpuscular HGB Conc 31.6 g/dL (30.0-36.0); Mean Corpuscular Hemoglobin 27.2 pg (28.0-34.0); Mean Corpuscular Volume 86.1 fl (81-99); Mean Platelet Volume 10.9 fL (7.4-10.4); Monocytes # 0.5 10^3/uL (0.2-0.9); Neutrophils # 11.06 10^3/uL (1.8-7.7); Neutrophils % 87.4 %; Nucleated Red Blood Cells % 0 %; Platelet Count 282 10^3/cmm (130-400); Red Blood Count 5.47 10^6/uL (4.1-5.3); Red Cell Distribution Width 12.9 % (12.1-15.1); White Blood Count 12.7 10^3/uL (4.0-10.0)
[2021-10-08 20:01] LABS: INR 1.02 (0.8-1.2)
--- NOTE | 2021-10-08 20:30 | PC.NURSE ---
Rai cath irrigated with 2000 ml Sterile water. multiple clots were removed as well 2 large clots were passed around rai entrance as well. rai cath draining slowly.
--- NOTE | 2021-10-08 21:30 | PC.NURSE ---
flushed rai cath with 1000 ml Sterile water. 2 more large clots were discharged from urethral opening and clots smaller clots were removed during flush. New rai drain bag placed. Small amount draining. Dr Peña was notified.
[2021-10-09 00:07] LABS: Alanine Aminotransferase 24 U/L (0-33); Albumin Level 3.5 g/dL (3.5-5.2); Alkaline Phosphatase 86 IU/L (35-105); Anion Gap 15.6 (5-19); Aspartate Amino Transferase 30 U/L (0-32); Blood Urea Nitrogen 9 mg/dL (8-23); Calcium 9.6 mg/dL (8.5-10.5); Carbon Dioxide 28 mmol/L (22-29); Chloride 98 mmol/L (98-107); Globulin 3.4 g/dL (1.3-4.6); Glucose 108 mg/dL (65-115); Lipase 14 U/L (13-60); Osmolality Calculated 285 mOsm/kg (285-295); Potassium 3.6 mmol/L (3.5-5.1); Sodium 138 mmol/L (136-145); Total Bilirubin 0.3 mg/dL (0.15-1.2); Total Protein 6.9 g/dL (6.6-8.7)
[2021-10-09 00:50] VITALS: BP 117/89; PULSE 104; RESP 18; O2SAT 94
== END 2021-10-09 00:54 | disposition short-term general hospital (02) ==
PROVIDERS: Emergency Medicine; Emergency Provider Emergency Medicine; PCP Family Medicine
DX: R31.9 Hematuria, unspecified (principal); Z79.02 Long term (current) use of antithrombotics/antiplatelets; Z79.82 Long term (current) use of aspirin; J44.9 Chronic obstructive pulmonary disease, unspecified; E78.5 Hyperlipidemia, unspecified; I25.2 Old myocardial infarction; I11.0 Hypertensive heart disease with heart failure; I50.20 Unspecified systolic (congestive) heart failure; Z95.1 Presence of aortocoronary bypass graft; Z87.891 Personal history of nicotine dependence
CPT/HCPCS: 74176; 80053; 81001; 83690; 85025; 85610; 87077; 87086; 87186; 99285